=== PATIENT | male | born 1975 | race Caucasian/White ===

== ENCOUNTER 2023-09-19 14:24 | Outpatient (OUT) | payer OTHER, SELFPAY ==
--- NOTE | 2023-09-19 15:00 | CA_ITS ---
Patient Name: HEBERT MARTÍNEZ MR#: [id number] : 1975 Exam Date: 09/19/2023 Ordering Doctor: Rudi Earl ECHOCARDIOGRAM REPORT PROCEDURE: CA ECHO DOPPLER COMPLETE INDICATIONS: Atrial fibrillation COMPARISON: None. DESCRIPTION: COMPLETE ECHOCARDIOGRAM Real-time transthoracic echocardiography with 2D, M-mode, spectral and color flow Doppler performed. QUALITY: Technical quality was good. LEFT VENTRICLE: Normal chamber size. Mild concentric left ventricular hypertrophy. LV EF: Global left ventricular systolic function is normal. Calculated left ventricular ejection fraction is 66%. No significant wall motion abnormalities. DIASTOLIC: Normal diastolic function. ATRIAL SEPTUM: Inadequately seen. LEFT ATRIUM: Normal chamber size. RIGHT ATRIUM: Normal chamber size. RIGHT VENTRICLE: Normal chamber size. Normal right ventricular systolic function. TRICUSPID VALVE: Normal mobility and thickness. No stenosis with mild regurgitation. No evidence of pulmonary hypertension. RVSP 28mmHg MITRAL VALVE: Normal mobility and thickness. No evidence of mitral valve stenosis. There is no mitral annular calcification. Mild mitral regurgitation. AORTIC VALVE: Normal trileaflet appearance. Normal leaflet mobility. No evidence of aortic valve stenosis. Trivial aortic regurgitation. AORTIC ROOT: Normal diameter and appearance. PULMONIC VALVE: Grossly normal. No stenosis. No regurgitation. PERICARDIUM: No evidence of pericardial effusion. IVC: Collapses with inspirations. Normal size. CONCLUSION: 1. Global left ventricular systolic function is normal; visually estimated ejection fraction is 60 to 65% 2. Normal right ventricular size and systolic function 3. Mildly increased left ventricular wall thickness 4. Normal diastolic function 5. Normal left atrial size 6. Mild tricuspid regurgitation 7. Mild mitral regurgitation Adult Echocardiography Procedure Report Left Ventricle LVEDD (3.7 - 5.6 cm): 4.30 cm LVESD (2.2 - 4.0 cm): 2.97 cm LVIVS thickness (0.6 - 1.2 cm): 1.18 cm LVPW thickness (0.5 - 1.0 cm): 1.14 cm e': 0.14 m/s E - e': 5.52 LVOT Max Gradient: 3.58 mm[Hg] LVOT Area (cm2): 0.95 m/s Peak Velocity (LVOT): 0.95 m/s Mean Velocity (LVOT): 0.66 m/s LVOT Diameter 2.06 cm Left Ventricular Ejection Fraction: 65.58 % Left Atrium LA Volume Index (2D A2C): 32.70 ml/m2 Left Atrium Systolic Dimension: 3.00 cm Mitral Valve MV E to A Ratio: 1.11 Mitral Valve A-Wave Peak Velocity: 0.70 m/s Mitral Valve E-Wave Peak Velocity: 0.78 m/s Right Ventricle RV Internal Diastolic Dimension: 3.33 cm Aorta AO Root Diam: 3.25 cm Aortic Valve AoV Area (Peak Tim): 2.71 cm2, 2.71 cm2 AoV Area (VTI): 2.70 cm2, 2.70 cm2 Peak Velocity(Antegrade Flow): 1.16 m/s Peak Gradient(Antegrade Flow): 5.38 mm[Hg] Mean Velocity(Antegrade Flow): 0.78 m/s Mean Gradient(Antegrade Flow): 2.82 mm[Hg] Velocity Time Integral: 28.97 cm Tricuspid Valve Peak Velocity (Regurgitant Flow): 2.50 m/s Pulmonic Valve Mean Gradient: 1.70 mm[Hg] Mean Velocity: 0.60 m/s Peak Velocity: 0.94 m/s Peak Gradient: 3.55 mm[Hg] Right Atrium Right Atrium Systolic Pressure: 39.77 ml, 39.77 ml Dictated by: Puneet Quispe M.D. on 09/21/2023 at 16:52 Approved by: Puneet Quispe M.D. on 09/21/2023 at 16:55
[2023-09-19 15:52] LABS: Basophils Absolute Auto 0.1 10^3/uL (0.0-0.1); Eosinophils Absolute Auto 0.2 10^3/uL (0.0-0.7); Eosinophils Percent Auto 2.7 % (0.9-7.0); Hematocrit 47.2 % (42.0-54.0); Immature Granulocytes Abs Auto 0.03 10^3/uL (0.00-0.03); Immature Granulocytes Pct Auto 0.4 % (0.0-0.5); Lymphocytes Percent Auto 24.5 % (20.5-60.0); Mean Corpuscular HGB Conc 33.9 g/dL (29.9-35.2); Mean Corpuscular Hemoglobin 30.1 pg (25.9-34.0); Mean Corpuscular Volume 88.9 fL (80.0-94.0); Mean Platelet Volume 8.9 fL (9.5-13.5); Monocytes Absolute Auto 0.8 10^3/uL (0.3-0.8); Monocytes Percent Auto 9.9 % (1.7-12.0); Neutrophils Percent Auto 61.5 % (43.0-75.0); Platelet Count 219 10^3/uL (150-450); Red Blood Count 5.31 10^6/uL (4.70-6.10); Red Cell Distribution Width 12.4 % (11.0-15.0); White Blood Count 8.1 10^3/uL (4.0-11.0)
[2023-09-19 16:03] LABS: Anion Gap 12.1; BUN Creatinine Ratio 17.6; Calcium 9.2 mg/dL (8.5-10.1); Carbon Dioxide 26.1 mmol/L (21.0-32.0); Chloride 104 mmol/L (98-107); Estimated GFR (African America >60 (>=60); Estimated GFR (Non-African Ame >60 (>=60); Glucose 90 mg/dL (74-106); Potassium 4.2 mmol/L (3.5-5.1); Sodium 138 mmol/L (136-145)
== END 2023-09-19 14:25 | disposition home or self-care (01) ==
LOC: CARD 14:24
PROVIDERS: PCP Family Medicine; Visit Provider Internal Medicine Cardiovascular Disease
DX: Z01.812 Encounter for preprocedural laboratory examination (principal); Z01.818 Encounter for other preprocedural examination; I48.0 Paroxysmal atrial fibrillation
CPT/HCPCS: 36415; 80048; 85025; 93306

== ENCOUNTER 2024-03-02 10:26 | Emergency (ER) | payer OTHER, SELFPAY ==
--- OUTSIDE RECORDS SUMMARY | 2024-03-02 10:33 | XMS_ITS | CCD ---
Author Organization [facility] Care Team Providers Care Nurse Practitioner Hospitalist Name Role Phone LIYAH ANDRADE Unavailable Unavailable LIYAH ANDRADE Unavailable Unavailable ALEXANDER POWELL AM Unavailable Unavailable UNKNOWN, PHYSICIAN Unavailable Unavailable KHAYZNIKOV, CHACHO Unavailable Unavailable KHAYZNIKOV, CHACHO Unavailable Unavailable [place], EHAB A Unavailable Unavailable KELLEN LINN Unavailable Unavailable [place] Unavailable Unavailable Uri, Honey Unavailable Unavailable Kellen Linn Primary Care Provider Franco Pan Attending Provider TEMITOPE, DR KELLEN Segundo Admitting Unavailable TEMITOPE, DR KELLEN Segundo Primary Care Unavailable TEMITOPE, DR KELLEN Segundo Consulting Unavailable LINN, DR KELLEN Segundo Attending Unavailable LINN, DR KELLEN Segundo Attending Unavailable TEMITOPE, DR KELLEN Segundo Admitting Unavailable TEMITOPE, DR KELLEN Segundo Primary Care Unavailable TEMITOPE, DR KELLEN Segundo Consulting Unavailable JAH QUINTERO Attending Unavailable JAH QUINTERO Admitting Unavailable JAH QUINTERO Consulting Unavailable TEMITOPE, DR KELLEN Segundo Primary Care Unavailable Ronel Vergara Consulting Unavailable Franco Pan Unavailable Kellen Linn Unavailable RUDI EARL Referring Unavailable RUDI EARL Attending Unavailable RUDI EARL Referring Unavailable RUDI EARL Referring Unavailable RUDI EARL Admitting Unavailable RUDI EARL Attending Unavailable Allergies Allergy Classification Reported Allergen(s) Allergy Type Date of Onset Reaction(s) Facility Opioid Agonists (1 source) Morphine Drug Allergy 08-19-19 [facility] Penicillins (antibiotic) (1 source) Penicillins Drug Allergy 08-19-19 [facility] (4 sources) Penicillins; Translations: [PENICILLINS] Drug allergy (disorder) 12-27-19 13 [facility], Hives [facility] Repository (7 sources) Penicillins Drug allergy Unknown [place] Other (7 sources) Morphine Drug Allergy 02-07-20 Unknown, Agitation [facility] (2 sources) patient allergy list reviewed by nurse or physicia Propensity to adverse reactions 11-29-19 Comment:Done [place] Other (2 sources) Allergies Reconciled Propensity to adverse reactions Unknown [place] Other (2 sources) Substance with penicillin structure and antibacterial mechanism of action (substance) Drug allergy Unknown [place] Other Medications Current Medications Medication Drug Class(es) Dates Sig (Normalized) Sig (Original) acetaminophen 325 mg / oxyCODONE hydrochloride 5 mg oral tablet (2 sources) Opioid Agonist Start: 04-04-2021 take 1 tablet by mouth every four hours as needed Percocet 5-325 MG 1 tablet as needed Orally up to every 4 hrs for 5 days Mar, Active apixaban 5 mg oral tablet (1 source) Factor Xa Inhibitor Start: 02-07-2024 take 1 tablet by mouth twice daily Apixaban (Eliquis) 5 mg tablet Active 5 MG PO Twice daily February 07, 2024 12:00am Aspir-81 (7 sources) Aspir-81 Active aspirin 81 mg delayed release oral tablet (2 sources) Platelet Aggregation Inhibitor, Nonsteroidal Anti-inflammatory Drug Start: 08-18-2020 End: 02-07-2024 take 81 mg by mouth once daily Aspirin Active 81 MG PO Daily August 18, 2020 9:06am Azithromycin (1 source) Macrolide Antimicrobial Start: 02-07-2024 Azithromycin Active 0 PO .COMPLEX 6 February 07, 2024 12:00am For 250 mg dose pack: take 500 mg today (day 1), then 250 mg for 4 days (days 2-5) PO ciprofloxacin 500 mg oral tablet (2 sources) Quinolone Antimicrobial Start: 04-04-2021 take 1 tablet by mouth every twelve hours Cipro 500 MG 1 tablet Orally every 12 hrs for 2 days Mar, Active flecainide acetate 50 mg oral tablet (9 sources) Antiarrhythmic Start: 08-18-2020 take 50 mg by mouth twice daily Flecainide Active 50 MG PO Twice daily August 18, 2020 9:06am Flecainide Aceta te 100 MG as directed Orally twice daily Active 24 hr metoprolol succinate 25 mg extended release oral tablet (9 sources) beta-Adrenergic Joceline Start: 08-18-2020 take 25 mg by mouth once daily Metoprolol Succinate Active 25 MG PO Daily August 18, 2020 9:06am take 1 tablet by fede th every twelve hours Metoprolol Tartrate 25 MG 1 tablet with food Orally Twice a day Active Multivit With Min-Folic Acid (Men's Daily Formula) 0.4 mg Tablet (2 sources) Start: 08-18-2020 take 1 tablet by mouth once daily Multivit With Min-Folic Acid (Men's Daily Formula) 0.4 mg Tablet Active 1 TAB PO Daily August 18, 2020 9:06am Start: 08-18-2020 take 1 tablet by fede th once daily Multivit With Min-Folic Acid (Men's Daily Formula) 0.4 mg Tablet Active 1 TAB PO Daily August 18, 2020 12:00am Multivitamin preparation (7 sources) Multivitamin Act radha naproxen 500 mg oral tablet (9 sources) Nonsteroidal Anti-inflammatory Drug Start: 07-10-2023 Naproxen Active 5 00 MG PO Twice daily 60 July 10, 2023 2:16pm Pt. instructed to stop 5-7 days preop. Start: 08-18-2020 End: 07-10-2023 Naproxen Active 500 MG PO Tw ice daily August 18, 2020 9:06am Pt. instructed to stop 5-7 days preop. Naproxen Active Omeprazole (11 sources) Proton Pump Inhibitor Start: 12-05-2023 Omeprazo le Active 0 .ROUTE .COMPLEX December 05, 2023 9:58pm TAKE 1 CAPSULE DAILY 30 MINUTES BEFORE MORNING MEAL Start: 12-15-2021 take 1 capsule by mo uth once daily Omeprazole 20 MG 1 capsule 30 minutes before morning meal Oral daily for 90 days Nov, Active Start: 08-18-2020 End: 12-05-2023 take 20 mg by mouth once daily Omeprazole Active 20 MG PO Daily August 18, 2020 9:06am PriLOSEC Active rivaroxaban 10 mg oral tablet (3 sources) Factor Xa Inhibitor take 1 tablet by mouth every twenty-four hours Xarelto 10 MG 1 tablet with food Orally Once a day Active Robaxin-750 750MG (1 source) Start: 2020 Robaxin-750 750MG Robaxin-750 750MG, 1 (one) Tablet three times daily, as needed # 15, 05/28/2020, No Refill. Active Oral three times daily, as needed for 0 *Reorder from [facility] for eRx and Interaction Alerts* Apr, Active sildenafil 50 mg oral tablet (1 source) Phosphodiesterase 5 Inhibitor take 1 tablet by mouth every twenty-four hours Sildenafil Citrate 50 MG 1 tablet as needed Orally Once a day for 30 days Active sulfamethoxazole 800 mg / trimethoprim 160 mg oral tablet (2 sources) Dihydrofolate Reductase Inhibitor Antibacterial, Sulfonamide Antimicrobial Start: 2019 Sulfamethoxazole- Trimethoprim 800-160 MG Sulfamethoxazole- Trimethoprim 800-160MG, 1 (one) Tablet two times daily # 14, 08/22/2019, No Refill. Active Oral two times daily for 0 Jul, Active Start: 06-04-2019 Bactrim DS 800 -160 MG Bactrim DS 800-160MG, 1 (one) Tablet two times daily # 14, 06/04/2019, No Refill. Active Oral two times daily for 0 May, Active traMADol hydrochloride 50 mg oral tablet (9 sources) Opioid Agonist Start: 04-19-2021 take 1 tablet by mouth three times daily as needed traMADol HCl 50 MG traMADol HCl 50MG, 1 (one) Tablet three times daily, as needed # 21, 04/19/2021, No Refill. Active Oral three times daily, as needed for 7 Mar, Active Start: 04-11-2021 take 1 tablet by fede th every twenty-four hours traMADol HCl 50 MG 1 tablet as needed Orally Once a day Mar, Active Start: 04-11-2021 take 1 tablet by fede th every eight hours as needed for pain traMADol HCl 50 MG 1 tablet as needed for severe pain Orally every 8 hours for 7 days Mar, Active Completed/Discontinued Medications Medication Drug Class(es) Dates Sig (Normalized) Sig (Original) meloxicam 7.5 mg oral tablet (4 sources) Nonsteroidal Anti-inflammatory Drug Start: 06-26-2023 End: 02-07-2024 take 1 tablet by mouth once daily Meloxicam Discontinued 0 .ROUTE .COMPLEX June 26, 2023 3:10pm February 07, 2024 2:58pm TAKE 1 TABLET BY MOUTH EVERY DAY FOR 30 DAYS Start: 06-26-2023 End: 06-26-2023 take 7.5 mg by mouth once daily Meloxicam Discontinued 7.5 MG PO Daily June 26, 2023 1:00am June 26, 2023 3:11pm Start: 06-07-2023 take 1 tablet by fede th every twenty-four hours Meloxicam 7.5 MG 1 tablet Orally Once a day for 30 day(s) May, Active Start: 06-07-2023 take 1 capsule by mo [facility] every twenty-four hours Meloxicam 5 MG 1 capsule Orally Once a day for 30 day(s) May, Active tiZANidine 4 mg oral tablet (7 sources) Central alpha-2 Adrenergic Agonist Start: 09-04-2023 End: 02-07-2024 take 1 tablet by mouth once daily at bedtime as needed Tizanidine Discontinued 0 .ROUTE .COMPLEX October 26, 2023 11:01am February 07, 2024 2:58pm TAKE 1 TABLET BY MOUTH EVERYDAY AT BEDTIME NEEDED FOR MUSCLE SPASTICITY Start: 07-16-2023 End: 09-04-2023 take 1 tablet by mouth at bedtime as needed Tizanidine Discontinued 0 .ROUTE .COMPLEX August 13, 2023 9:25am September 04, 2023 9:47am TAKE 1 TABLET BY MOUTH AT BEDTIME NEEDED FOR MUSCLE SPASTICITY Start: 06-21-2023 End: 07-16-2023 take 4 mg by mouth once daily at bedtime Tizanidine Discontinued 4 MG PO Daily at bedtime June 21, 2023 4:02pm July 16, 2023 10:07am take 1 tablet by fede once daily at bedtime as needed tiZANidine HCl 4 MG 1 tablet as needed Orally qhs prn for 30 days Active Triamcinolone (4 sources) Corticosteroid Start: 01-17-2021 Kenalog -40 mg Dec, 40 mg Start: 07-08-2020 Kenalog -40 mg Jun, 40 mg Problems Active Problems Problem Classification Problem Date Documented Da te Episodic/Chronic Allergic reactions (1 source) Allergy status to penicillin; Translations: [ALLERGY STATUS TO PENICILLIN] Onset: 01-09-2018 Episodic Cardiac dysrhythmias (13 sources) Unspecified atrial fibrillation; Translations: [Paroxysmal atrial fibrillation] Onset: 05-23-2017 Chronic Esophageal disorders (3 sources) Gastro-esophageal reflux disease without esophagitis; Translations: [Esophageal reflux finding] Onset: 03-19-2017 Chronic Headache; including migraine (2 sources) Tension-type headache; Translations: [Tension-type headache, unspecified, not intractable] Chronic Other male genital disorders (2 sources) Male erectile dysfunction, unspecified; Translations: [Erectile dysfunction, unspecified erectile dysfunction type] Chronic Other non-traumatic joint disorders (4 sources) Shoulder joint pain; Translations: [Pain in unspecified shoulder] Episodic Other screening for suspected conditions (not mental disorders or infectious disease) (2 sources) Patient encounter status; Translations: [Encounter for screening for malignant neoplasm of prostate] 02-07-2024 Episodic Other upper respiratory infections (2 sources) Chronic sinusitis; Translations: [Chronic sinusitis, unspecified] Chronic Residual codes; unclassified (1 source) Family history of prostate cancer; Translations: [Family history of malignant neoplasm of prostate] 02-07-2024 Episodic Residual codes; unclassified (1 source) Family history of malignant neoplasm of prostate; Translations: [Family history of malignant neoplasm of prostate] 02-07-2024 Episodic Skin and subcutaneous tissue infections (6 sources) Cellulitis and abscess of toe; Translations: [Unspecified cellulitis and abscess of toe] Onset: 11-16-2017 Episodic Spondylosis; intervertebral disc disorders; other back problems (2 sources) Cervical disc disorder; Translations: [Cervical disc disorder, unspecified, unspecified cervical region] Onset: 11-28-2018 Chronic Sprains and strains (6 sources) Strain of muscle(s) and tendon(s) of the rotator cuff of left shoulder, initial encounter; Translations: [Strain of other muscles, fascia and tendons at shoulder and upper arm level, left arm, sequela] Onset: 01-31-2021 Resolved: 05-24-2021 Episodic Unclassified (1 source) Obstructive sleep apnea (adult) (pediatric); Translations: [OBSTRUCTIVE SLEEP APNEA (ADULT) (PEDIATRIC)] Onset: 01-09-2018 Chronic Unclassified (2 sources) Unknown / UNK(Unknown) Onset: 05-23-2017 Unclassified (2 sources) CONTACT W/AND (SUSP) EXPOS COVID-19; Translations: [CONTACT W/AND (SUSP) EXPOS COVID-19] Onset: 04-26-2021 Viral infection (4 sources) COVID-19; Translations: [COVID-19] Onset: 04-21-2021 Past or Other Problems Problem Classification Problem Date Documented Date Episodic/Chronic Cardiac dysrhythmias (3 sources) Palpitations; Translations: [PALPITATIONS] Onset: 04-10-2021 Episodic Disorders of teeth and jaw (2 sources) Dental caries; Translations: [Dental caries, unspecified] Onset: 05-24-2017 Episodic Immunizations and screening for infectious disease (1 source) Encounter for immunization; Translations: [ENCOUNTER FOR IMMUNIZATION] Onset: 04-25-2021 Episodic Mycoses (2 sources) Tinea pedis; Translations: [Tinea pedis] Onset: 12-19-2016 Episodic Nonspecific chest pain (2 sources) Chest pain; Translations: [Chest pain, unspecified] Onset: 03-19-2017 Episodic Other aftercare (2 sources) exterminator helper termite (current) use of aspirin; Translations: [SHED BOSS (CURRENT) USE OF ASPIRIN] Onset: 01-09-2018 Episodic Other aftercare (1 source) Other care home (current) drug therapy; Translations: [OTH ASSISTED CURRENT DRUG THERAPY] Onset: 04-12-2021 Episodic Other connective tissue disease (5 sources) Unspecified disorder of synovium and tendon, left shoulder; Translations: [Tendinopathy of left rotator cuff M67.912] Onset: 01-31-2021 Resolved: 05-24-2021 Episodic Other connective tissue disease (2 sources) Acquired trigger finger; Translations: [Trigger finger] Onset: 03-19-2017 Episodic Other connective tissue disease (2 sources) Bicipital tenosynovitis; Translations: [Bicipital tenosynovitis] Onset: 01-29-2013 Episodic Residual codes; unclassified (1 source) Other specified postprocedural states Onset: 04-04-2021 Resolved: 04-04-2021 Episodic Screening or history of mental health and substance abuse (1 source) Personal history of nicotine dependence; Translations: [PERSONAL HISTORY OF NICOTINE DEPENDENCE] Onset: 05-23-2017 Episodic Unclassified (1 source) CONTACT W/AND (SUSP) EXPOS COVID-19; Translations: [CONTACT W/AND (SUSP) EXPOS COVID-19] Onset: 04-19-2021 Results Test Name Value Interpretation Reference Range Facility 36on 10-03-2023 36 states patient have small hard knot in groin where catheters were.slight bruising.informed her its normal,no reports of drainage.complaints of soreness to wrist at artline site,able to move fingers without difficulty,fingers warm,pink.no other complaints.otherwise taking blood thinners and antacids as ordered.eating and drinking well.will call back with any other concern Normal [facility] Telephoneon 10-03-2023 Telephone [id number] Moon Perrin 1975 M Date Provider Department Center 10/03/2023 [facility] Family History Problem Relation Age of Onset Bradycardia Mother Other Mother Family Status - Relation Status Age at Mother Reason for Visit and Comments: week f/u post ablation [Other] Normal [facility] HPon 09-26-2023 [facility] Electrophysiology Consult Note Reason for visit: Afib 09/11/23 Patient here for 1 year follow up PAF. Denies chest pain and SOB. Had 1 short recent episode of lightheadedness. Says he feels his heart beat fast, but not irregularly. No recent labs or imaging since visit last year. He is in Afib now and states he went intot it this am EKG 09/11/23: Afib with RVR 08/15/22 Patient has been doing well since the flecainide was increased to 100 mg twice daily. Recent 30-day event monitor from 05/19/2019 to 07/27/2022 did not reveal the presence of atrial fibrillation suggestive of breakthrough despite using flecainide. This was noted on 28 June as well as 02 July and the remainder of the time he was in sinus rhythm. Continues to use CPAP for sleep apnea. He elects to proceed with ablation but does not have any holidays so would like to get it done next year. By pulse check he is in normal rhythm today Prior HPI: Hernandez Perrin is a 48 y.o. with paroxysmal atrial fibrillation which was initially diagnosed in 2017 and was subsequently seen by Dr. Powell. He was placed on flecainide 50 mg and had a recurrence in September 2017 and at that time was cardioverted [place]. He was continued on the same dose and then subsequently had a recurrence in March 2021. He converted on his own and his dose was increased to 100 mg twice daily. He has also been diagnosed sleep apnea but does not use his machine He is otherwise active with no other chest pain or other issues EKG 05/10/2021 shows sinus rhythm 04/10/2021 shows sinus rhythm 04/10/2021 at 2 PM shows atrial fibrillation with controlled ventricular rate 03/18/2020 shows sinus rhythm 12/03/2019 shows sinus rhythm 02/19/2018 shows sinus rhythm Stress test from 03/31/2020 is a nuclear perfusion study which is negative for ischemia Echocardiogram performed on 03/31/2020 shows EF of 55 to 60% with normal left atrial and normal ventricular size no significant valvular abnormality was noted Holter that was placed on 03/18/2022 -03/21/2020 reveals no evidence of atrial fibrillation occasional PVCs were noted which is less than 1% and PACs were also seen which is less than 1% however there were no patient triggered events during the time of monitoring 1. Paroxysmal atrial fibrillation - Patient is without evidence of paroxysmal atrial fibrillation. He is symptomatic when he has his A. fib with RVR episodes and I discussed strategies to maintain sinus rhythm with a discussion of maintaining the antiarrhythmic drugs versus catheter ablation. He would like to come off the medication as much as possible and himself out and fibrillation. I have suggested that he focus on risk factor modification with weight loss and also to have compliance with sleep apnea treatment. I suggested that he trial a nasal pillow for FIONA treatment. If it is such that he does not have any more episodes of A. fib because of the weight loss he has achieved, and that he has instituted treatment for sleep apnea, then we can wait and see. On the other hand if he has recurrence then he can schedule A. fib ablation. I48.0: Paroxysmal atrial fibrillation PMH: Past Medical History: Diagnosis Date Intermittent palpitations Obstructive sleep apnea syndrome cpap Paroxysmal atrial fibrillation (CMS/HCC) PSH: Past Surgical History: Procedure Laterality Date CARDIOVERSION KNEE SURGERY SHOULDER SURGERY SH: Social Determinants of Health Tobacco Use: Medium Risk (09/26/2023) Patient History Smoking Tobacco Use: Former Smokeless Tobacco Use: Never Passive Exposure: Not on file Alcohol Use: Not on file Financial Resource Strain: Not on file Food Insecurity: Not on file Transportation Needs: Not on file Physical Activity: Not on file Stress: Not on file Social Connections: Not on file Intimate Partner Violence: Unknown (06/21/2023) [place] Safety & Environment Fear of Current or Ex-Partner: Not on file Emotionally Abused: Not on file Physically Abused: Not on file Sexually Abused: Not on file Physically or Sexually Abused: Not on file Depression: Not on file Housing Stability: Not on file Utilities: Not on file Allergies: Allergies Allergen Reactions Penicillins Hives Weight: 94.3kg Visit Vitals BP 121/73 Pulse 62 Temp 36.5 ???C (97.7 ???F) (Temporal) Resp 18 Ht 1.727 m (5' 8 ) Wt 93.8 kg (206 lb 12.7 oz) SpO2 99% BMI 31.44 kg/m??? Smoking Status Former BSA 2.12 m??? Meds: No current facility-administered medications on file prior to encounter. Current Outpatient Medications on File Prior to Encounter Medication Sig Dispense Refill apixaban (Eliquis) 5 mg tablet Take 1 tablet (5 mg) by mouth in the morning and at bedtime. 60 tablet 11 flecainide (Tambocor) 100 mg tablet TAKE 1 TABLET EVERY 12 HOURS 180 tablet 3 omeprazol (more content not included)... Normal [facility] POCT GLUCOSE METER UNSOLICIT ED RESULTSon 09-26-2023 Glucose [Mass/Vol] 89 mg/dL Normal 70-105 [facility] Comment on above: Order Comment: Waive d Testing in the ED is performed under the ED CLIA certificate #[id number]. Result Comment: [address] Performed By: #### L [id number] ####[facility] ([employer])[address] [place] [address] PROTIME-INRon 09-26-2023 INR IN PPP BY COAGULATION ASSAY 1.04 Normal 0.90-1.10 [facility] Comment on above: Result Comment: [facility] P RECOMMENDED INR FOR WARFARIN THERAPY CONDITION INR PROPHYLAXIS OF VENOUS THROMBOSIS 2-3 (HIGH-RISK SURGERY) TREATMENT OF VENOUS THROMBOSIS 2-3 TREATMENT OF PULMONARY EMBOLISM 2-3 PREVENTION OF SYSTEMIC EMBOLISM: 2-3 ACUTE MYOCARDIAL INFARCTION TISSUE HEART VALVES VALVULAR HEART DISEASE ATRIAL FIBRILLATION RECURRENT SYSTEMIC EMBOLISM MECHANICAL HEART VALVE 2.5-3.5 FROM: ORAL ANTICOAGULANTS. MECHANISM OF ACTION, CLINICAL EFFECTIVENESS, AND OPTIMAL THERAPEUTIC RANGE. CHEST 1995;108:231S-246S. Performed By: #### L [id number] ####[facility] ([employer])[address] [place] [address] PROTHROMBIN TIME (PT) IN PPP BY COAGULATION ASSAY 13.6 Seconds Normal 12.3-14.8 [facility] Comment on above: Performed By: #### L [id number] ####[facility] ([employer])[address] [place] [address] Prep for Procedureon 09-25- 024 Prep for Procedure [id number] Hernandez Perrin 1975 M Date Provider Department Center 09/26/2023 [facility] Family History Problem Relation Age of Onset Bradycardia Mother Other Mother Family Status - Relation Status Age at Mother Normal [facility] Orders Onlyon 09-20-2023 Orders Only [id number] Moon Perrin E 1975 M Date Provider Department Center 09/20/2023 [id number], HISTORICAL CARD Zeke Keena Family History Problem Relation Age of Onset Bradycardia Mother Other Mother Family Status - Relation Status Age at Mother Normal [facility] [id number] 09-18-2023 [id number] ARRIVAL TIME GIVEN 0 700 HOLD ELIQUIS ON 09/23 MEDICATIONS TO TAKE DAY OF SURGERY WITH SIP OF WATER METOPROLOL OMEPRAZOLE NSAIDs (Motrin,Aleve): 5 days prior to procedure Vitamins/Supplements: 5 days prior to procedure IF YOU ARE GOING HOME AFTER YOUR SURGERY OR PROCEDURE, FOR YOUR SAFETY, YOUR SURGERY WILL BE CANCELLED IF BOTH OF THE FOLLOWING ARE NOT AVAILABLE: An adult driver/refuse collector over the age of 18, that can receive information about your care after surgery, and drive you home. A responsible adult to stay with you for 24 hours in case of an emergency. Can be same as above. The highest risk of complications is within the first 24 hours after sedation/anesthesia. Nothing to eat or drink after midnight the night before surgery. This includes gum, candy, mints, and lozenges. No alcohol, marijuana, or tobacco products including vaping for 24 hours. Please brush your teeth; don't swallow the toothpaste or water. If you use dentures, wear them but do not use paste. Please leave any other removable dental hardware at home. Do not put in contact lenses. Do not wear perfume, make-up, nail turkmen, or lotions on the day of your surgery or procedure. Follow skin-prep/wipe instructions as below if required. Bring with you: *Insurance card *Photo ID *Medication list *Co-pay for visit/prescriptions If applicable: *Rescue inhalers *Green bracelet from lab *CPAP or BiPAP machine, if staying overnight *Any braces, splints, or equipment ordered preoperatively *Remote controls for implanted devices Leave at home: *Purse/Wallet/Riley- unless needed for co-pay *Cell phone (can leave with family/friend or place in locker if needed) *Jewelry (including piercings and wedding bands) *If not possible, ask the person who is waiting with you to keep them Children under the age of 12 will not be allowed into patient care areas. We will call you between 3pm and 4pm the day before your surgery to give you an arrival time. If you do not receive this call, have any questions, or need to make any changes, please call [phone]. Notify your surgeon if you develop any illness such as a cold, cough, fever, sore throat or vomiting between now and your surgery. Thank you for entrusting us with your care. [place] [facility] Services Team Normal [facility] [place] Prep for Procedureon 024 Prep for Procedure [id number] JwinésHernandez 1975 M Date Provider Department Center 09/13/2023 Francia-JAROD [facility] IN [facility] Family History Problem Relation Age of Onset Bradycardia Mother Other Mother Family Status - Relation Status Age at Mother Normal [facility] [place] Office Visiton 09-11-2023 Follow-up visit [id number] Moon Perrin E 1975 M Date Provider Department Center 09/11/2023 Messi-RUDI EARL [facility] Family History Problem Relation Age of Onset Bradycardia Mother Other Mother Family Status - Relation Status Age at Mother Level of Service:[address] [place] OFFICE/OUTPATIENT ESTABLISHED HIGH MDM 40 MIN Normal [facility] [place] Covid-19 PCR (CVDTBH)on 03-31 SARS-CoV-2 (COVID-19) RNA LAMIN+probe Ql (Unsp spec) Detected Critically abnormal NOT DETECTED [facility] Comment on above: Result Comment: This test is not yet approved or cleared by the [place] FDA. When there are no FDA-approved or cleared tests available, and other criteria are met, FDA can make tests available under an emergency access mechanism called an Emergency Use Authorization (EUA). The EUA for this test is supported by the [employer] of Health and Human Service's (HHS's) declaration that circumstances exist to justify the emergency use of in vitro diagnostics for the detection and/or diagnosis of the virus that causes COVID-19. This EUA will remain in effect (meaning this test can be used) for the duration of the COVID-19 declaration justifying emergency of IVDs, unless it is terminated or revoked by FDA (after which the test may no longer be used). Performed By: #### C VDTBH #### [facility] [address] [place] [address] Dr. Joselyn Henning CBC AUTO DIFFon 04-10-2021 BASO # 0.1 103/ul Normal 0.0-0.1 [facility] Comment on above: Performed By: #### C BC #### [facility] [address] [place] [address] Dr. Joselyn Henning Basophils/100 WBC (Bld) 0.8 % Normal 0.2-2.0 [facility] Comment on above: Performed By: #### C BC #### [facility] [address] [place] [address] Dr. Joselyn Henning EO # 0.3 103/ul Normal 0.0-0.7 [facility] Comment on above: Performed By: #### C BC #### [facility] [address] [place] [address] Dr. Joselyn Henning Eosinophils/100 WBC (Bld) 2.6 % Normal 0.9-7.0 [facility] Comment on above: Performed By: #### C BC #### [facility] [address] [place] [address] Dr. Joselyn Henning Erythrocyte distribution width (RBC) [Ratio] 12.5 % Normal 11.0-15.0 [facility] Comment on above: Performed By: #### C BC #### [facility] [address] [place] [address] Dr. Joselyn Henning Hematocrit (Bld) [Volume fraction] 45.0 % Normal 42.0-54.0 [facility] Comment on above: Performed By: #### C BC #### [facility] [address] [place] [address] Dr. Joseyln Henning Hemoglobin (Bld) [Mass/Vol] 15.5 g/dL Normal 14.0-18.0 [facility] Comment on above: Performed By: #### C BC #### [facility] [address] [place] [address] Dr. Joselyn Henning IG # 0.07 10e3/ul Critically high 0.00-0.03 [facility] Comment on above: Performed By: #### C BC #### [facility] [address] [place] [address] Dr. Joselyn Henning IG % 0.7 % Critically high 0.0-0.5 [facility] Comment on above: Performed By: #### C BC #### [facility] [address] [place] [address] Dr. Joselyn Henning LYMPH # 2.5 103/ul Normal 1.2-3.8 [facility] Comment on above: Performed By: #### C BC #### [facility] [address] [place] [address] Dr. Joselyn Henning Lymphocytes/100 WBC (Bld) 23.2 % Normal 20.5-60.0 [facility] Comment on above: Performed By: #### C BC #### [facility] [address] [place] [address] Dr. Joselyn Henning MANUAL DIFF REQ NO Normal [facility] Comment on above: Performed By: #### C BC #### [facility] [address] [place] [address] Dr. Joselyn Henning MCH (RBC) [Entitic mass] 30.5 pg Normal 25.9-34.0 [facility] Comment on above: Performed By: #### C BC #### [facility] [address] [place] [address] Dr. Joselyn Henning MCHC (RBC) [Mass/Vol] 34.4 g/dL Normal 29.9-35.2 [facility] Comment on above: Performed By: #### C BC #### [facility] [address] [place] [address] Dr. Joselyn Henning MCV (RBC) [Entitic vol] 88.4 fL Normal 80.0-94.0 [facility] Comment on above: Performed By: #### C BC #### [facility] [address] [place] [address] Dr. Joselyn Henning MONO # 1.0 103/ul Critically high 0.3-0.8 [facility] Comment on above: Performed By: #### C BC #### [facility] [address] [address] [address] Joselyn Henning Monocytes/100 WBC (Bld) 9.7 % Normal 1.7-12.0 [facility] Comment on above: Performed By: #### C BC #### [facility] [address] [address] [address] Joselyn Henning NEUT # 6.8 103/ul Critically high 1.4-6.5 [facility] Comment on above: Performed By: #### C BC #### [facility] [address] [place] [address] Dr. Joselyn Henning Neutrophils/100 WBC (Bld) 63.0 % Normal 43.0-75.0 [facility] Comment on above: Performed By: #### C BC #### [facility] [address] [place] [address] Dr. Joselyn Henning Platelet mean volume (Bld) [Entitic vol] 9.1 fL Critically low 9.5-13.5 [facility] Comment on above: Performed By: #### C BC #### [facility] [address] [place] [address] Dr. Joselyn Henning PLT 269 103/ul Normal 150-450 [facility] Comment on above: Performed By: #### C BC #### [facility] [address] [place] [address] Dr. Joselyn Henning RBC 5.09 106/ul Normal 4.70-6.10 [facility] Comment on above: Performed By: #### C BC #### [facility] [address] [place] [address] Dr. Joselyn Henning WBC 10.7 103/ul Normal 4.0-11.0 [facility] Comment on above: Performed By: #### C BC #### [facility] [address] [place] [address] Dr. Joselyn Henning PROF CHEM 8 (BAS METB)on Anion gap [Moles/Vol] 12.2 mmol/L Normal [facility] Comment on above: Performed By: #### B MP, HSTROPN, TSH #### [facility] [address] [address] [address] Joselyn Henning Calcium [Mass/Vol] 9.1 mg/dL Normal 8.4-10.2 [facility] Comment on above: Performed By: #### B MP, HSTROPN, TSH #### [facility] [address] [address] [address] Joselyn Henning Chloride [Moles/Vol] 109 mmol/L Critically high 98-107 [facility] Comment on above: Performed By: #### B MP, HSTROPN, TSH #### [facility] [address] [place] [address] Dr. Joselyn Henning CO2 [Moles/Vol] 24.7 mmol/L Normal 22.0-30.0 [facility] Comment on above: Performed By: #### B MP, HSTROPN, TSH #### [facility] [address] [place] [address] Dr. Joselyn Henning Creatinine [Mass/Vol] 0.82 mg/dL Normal 0.66-1.25 [facility] Comment on above: Performed By: #### B MP, HSTROPN, TSH #### [facility] [address] [place] [address] Dr. Joselyn Henning EGFR-AF PRYDEINIG >60 Normal >=60 [facility] Comment on above: Performed By: #### B MP, HSTROPN, TSH #### [facility] [address] [place] [address] Dr. Joselyn Henning EGFR-NON AF PRYDEINIG >60 Normal >=60 [facility] Comment on above: Performed By: #### B MP, HSTROPN, TSH #### [facility] [address] [place] [address] Dr. Joselyn Henning Glucose [Mass/Vol] 109 mg/dL Critically high 74-106 [facility] Comment on above: Performed By: #### B MP, HSTROPN, TSH #### [facility] [address] [place] [address] Dr. Joselyn Henning Potassium [Moles/Vol] 3.9 mmol/L Normal 3.4-5.0 [facility] Comment on above: Performed By: #### B INES BOWENTRDANI, TSH #### [facility] [address] [place] [address] Dr. Joselyn Henning Sodium [Moles/Vol] 142 mmol/L Normal 137-145 [facility] Comment on above: Performed By: #### B MARLEY BOWEN, TSH #### [facility] [address] [place] [address] Dr. Joselyn Henning Urea nitrogen [Mass/Vol] 11.0 mg/dL Normal 9.0-20.0 [facility] Comment on above: Performed By: #### B MARLEY BOWEN, TSH #### [facility] [address] [place] [address] Dr. Joselyn Henning Urea nitrogen/Creatini ne [Mass ratio] 13.4 mg/mg Normal [facility] Comment on above: Performed By: #### B MARLEY BOWEN, TSH #### [facility] [address] [place] [address] Dr. Joselyn Henning PROTIMEon 04-10-2021 INR Coag (PPP) [Relative time] 0.95 {INR} Normal [facility] Comment on above: Performed By: #### P T, PTT #### [facility] [address] [place] [address] Dr. Joselyn Henning INR GUIDELINES SEE BELOW Normal [facility] Comment on above: Result Comment: VIOLETTA RED INR: 2.0 - 3.0 CONDITIONS NOT LISTED BELOW 2.5 - 3.5 FOR PROSTHETIC HEART VALVE REPLACEMENT 2.5 - 3.5 RECURRENT THROMBOSIS Performed By: #### P T, PTT #### [facility] [address] [place] [address] Dr. Joselyn Henning PT Coag (PPP) [Time] 10.3 s Normal 9.0-11.6 [facility] Comment on above: Performed By: #### P T, PTT #### [facility] [address] [place] [address] Dr. Joselyn Henning PTTon 04-10-2021 aPTT Coag (Bld) [Time] 26.4 s Normal 22.3-36.2 [facility] Comment on above: Performed By: #### P T, PTT #### [facility] [address] [address] [address] Josleyn Henning TROPONIN, HIGH SENSITIVITYon 04-10-2021 HSTROP 5.1 pg/mL Normal 4.0-42.2 [facility] Comment on above: Result Comment: CUT- OFF POINTS HAVE BEEN ESTABLISHED BASED ON THE FOURTH UNIVERSAL DEFINITIONS OF MYOCARDIAL INFARCTION. THE UPPER REFERENCE LIMIT (URL) OF TROPONIN, DEFINED THE 99TH PERCENTILE OF cTnI DISTRIBUTION IN A REFERENCE POPULATION, HAS BEEN CONFIRMED THE DECISION THRESHOLD FOR [place] DIAGNOSIS. Performed By: #### B MP, HSTROPN, TSH #### [facility] [address] [address] [address] Joselyn Henning TSHon 04-10-2021 TSH 0.749 uIU/mL Normal 0.470-4.68 0 [facility] Comment on above: Performed By: #### B MP, HSTROPN, TSH #### [facility] [address] [address] [address] Joselyn Henning TSH RANGE SEE BELOW Normal [facility] Comment on above: Result Comment: <0.3 4 UIU/ml HYPERTHYROID 0.34-5.60 UIU/ml EUTHYROID >5.60 UIU/ml HYPOTHYROID Performed By: #### B MP, HSTROPN, TSH #### [facility] [address] [address] [address] Joselyn Henning XR CHEST 1 Von 04-10-2021 XR CHEST 1 V EXAM: CHEST 1 VIEW HISTORY: Palpitations TECHNIQUE: Chest, one view. COMPARISON: None. FINDINGS: Lungs are clear. No focal consolidation, pleural effusion, or pneumothorax. Pulmonary vasculature is within normal limits. Cardiomediastinal silhouette is normal. IMPRESSION: 1. No acute cardiopulmonary disease. 2. Normal heart size. Electronically authenticated by: RONEL VERGARA Date: 2021-04-10 14:41 Normal [facility] Drug Screen,Urineon 04-06-20 Amphetamine Screen,Urine Negative Normal Negative [facility] Comment on above: Performed By: #### C BC, CMP #### [address] Barbiturate Screen,Urine Negative Normal Negative [facility] Comment on above: Performed By: #### C BC, CMP #### [address] Benzodiazepines Screen,Urine Negative Normal Negative [facility] Comment on above: Performed By: #### C BC, CMP #### [address] Cannabinoid Screen,Urine Negative Normal Negative [facility] Comment on above: Result Comment: Thes e are unconfirmed results and should not be used for legal purposes. Drug Cut-Off Concentration: AMPH 1000 ng/mL ALYSON 200 ng/mL PARAG 200 ng/mL COCM 300 ng/mL OP 300 ng/mL PCP 25 ng/mL THC 20 ng/mL PERFORMED BY: [place] [address] PATHOLOGIST COMPREHENSIVE ADVISOR TIARA BARNARD M.D. Performed By: #### C BC, CMP #### [address] Cocaine Screen,Urine Negative Normal Negative [facility] Comment on above: Performed By: #### C BC, CMP #### [address] Opiate Screen,Urine Negative Normal Negative [facility] Comment on above: Performed By: #### C BC, CMP #### [address] Phencyclidine Screen,Urine Negative Normal Negative [facility] Comment on above: Performed By: #### C BC, CMP #### [address] COVID-19 FRMCon 04-04-2021 SARS-CoV-2 (COVID-19) RNA LAMIN+probe Ql (Unsp spec) Negative Normal Negative [facility] Comment on above: Order Comment: Healt hcare Worker?: N Result Comment: Testing for SARS-CoV-2 by RT-PCR This test was developed and its performance characteristics determined by [employer]) and validated at the [facility]. This test has not been FDA cleared or approved. This test has been authorized by FDA under an Emergency Use Authorization (EUA). This test has been validated in accordance with the FDA's Guidance Document (Policy for Diagnostics Testing in Laboratories Certified to Perform High Complexity Testing under CLIA prior to Emergency Use Authorization for Coronavirus Disease-2019 during the Public Health Emergency) issued on July 31, 2019. This test is only authorized for the duration of time the declaration that circumstances exist justifying the authorization of the emergency use of in vitro diagnostic tests for detection of SARS-CoV-2 virus and/or diagnosis of COVID-19 infection under section 564(b)(1) of the Act, 21 U.S.C. 360bbb-3(b)(1), unless the authorization is terminated or revoked sooner. PERFORMED BY: [place] [address] PATHOLOGIST COMPREHENSIVE ADVISOR TIARA BARNARD M.D. Performed By: #### C OVID 19 [facility] #### [address] Complete Blood Count Auto Di ffon 03-23-2021 Basophils (Bld) [#/Vol] 0.0 10*3/uL Normal 0.0-0.2 [facility] Comment on above: Result Comment: PERF ORMED BY: [place] [address] PATHOLOGIST COMPREHENSIVE ADVISOR TIARA BARNARD M.D. Performed By: #### C BC, CMP #### [address] Basophils/100 WBC (Bld) 0.6 % Normal . [facility] Comment on above: Performed By: #### C BC, CMP #### [address] Eosinophils (Bld) [#/Vol] 0.1 10*3/uL Normal 0.0-0.45 [facility] Comment on above: Performed By: #### C BC, CMP #### [facility] [address] [place] [address] [place] Eosinophils/100 WBC (Bld) 2.3 % Normal . [facility] Comment on above: Performed By: #### C BC, CMP #### [facility] [address] Erythrocyte distribution width (RBC) [Ratio] 13.4 % Normal 12.0-14.8 [facility] Comment on above: Performed By: #### C BC, CMP #### [facility] [address] Hematocrit (Bld) [Volume fraction] 47.9 % Normal 38.8-50.0 [facility] Comment on above: Performed By: #### C BC, CMP #### [facility] [address] Hemoglobin (Bld) [Mass/Vol] 16.3 g/dL Normal 13.0-17.0 [facility] Comment on above: Performed By: #### C BC, CMP #### [facility] [address] [place] [address] [place] Lymphocytes (Bld) [#/Vol] 1.6 10*3/uL Normal 1.00-4.8 [facility] Comment on above: Performed By: #### C BC, CMP #### [place] [address] [place] Lymphocytes/100 WBC (Bld) 26.0 % Normal . [facility] Comment on above: Performed By: #### C BC, CMP #### [facility] [address] [place] [address] [place] MCH (RBC) [Entitic mass] 30.9 pg Normal 27.5-35.2 [facility] Comment on above: Performed By: #### C BC, CMP #### [facility] [address] MCV (RBC) [Entitic vol] 90.8 fL Normal 83.5-101 [facility] Comment on above: Performed By: #### C BC, CMP #### [facility] [address] Mean Corpuscular HGB Conc 34.0 g/dL Normal 32.5-35.6 [facility] Comment on above: Performed By: #### C BC, CMP #### [facility] [address] [place] [address] [place] Monocytes (Bld) [#/Vol] 0.6 10*3/uL Normal 0.0-0.8 [facility] Comment on above: Performed By: #### C BC, CMP #### [facility] [address] [place] [address] [place] Monocytes/100 WBC (Bld) 9.4 % Normal . [facility] Comment on above: Performed By: #### C BC, CMP #### [facility] [address] [place] [address] [place] Neutrophils (Bld) [#/Vol] 3.8 10*3/uL Normal 1.8-7.7 [facility] Comment on above: Performed By: #### C BC, CMP #### [facility] [address] [place] [address] [place] Neutrophils/100 WBC (Bld) 61.7 % Normal . [facility] Comment on above: Performed By: #### C BC, CMP #### [facility] [address] [id number] [place] Nucleated RBC/100 WBC (Bld) [Ratio] 0.2 % Normal 0-0.5 [facility] Comment on above: Performed By: #### C BC, CMP #### [facility] [address] [place] [address] [place] Platelet mean volume (Bld) [Entitic vol] 7.2 fL Normal 6.6-10.1 [facility] Comment on above: Performed By: #### C BC, CMP #### [facility] [address] [id number] [place] Platelets (Bld) [#/Vol] 241 10*3/uL Normal 150-450 [facility] Comment on above: Performed By: #### C BC, CMP #### [address] RBC (Bld) [#/Vol] 5.27 10*6/uL Normal 3.90-5.60 [facility] Comment on above: Performed By: #### C BC, CMP #### [address] WBC (Bld) [#/Vol] 6.1 10*3/uL Normal 4.5-11.0 [facility] Comment on above: Performed By: #### C BC, CMP #### [address] Comprehensive Metabolic Pane velia 03-23-2021 Albumin [Mass/Vol] 3.6 g/dL Normal 3.2-5.5 [facility] Comment on above: Performed By: #### C BC, CMP #### [address] Albumin/Globulin [Mass ratio] 1.3 {ratio} Normal [facility] Comment on above: Performed By: #### C BC, CMP #### [address] ALP [Catalytic activity/Vol] 58 U/L Normal 32-92 [facility] Comment on above: Result Comment: PERF ORMED BY: [place] [address] PATHOLOGIST COMPREHENSIVE ADVISOR TIARA BARNARD M.D. Performed By: #### C BC, CMP #### [address] ALT [Catalytic activity/Vol] 14 U/L Normal 10-60 [facility] Comment on above: Performed By: #### C BC, CMP #### [address] AST [Catalytic activity/Vol] 16 U/L Normal 10-42 [facility] Comment on above: Performed By: #### C BC, CMP #### [address] Bilirubin [Mass/Vol] 0.6 mg/dL Normal 0.3-1.2 [facility] Comment on above: Performed By: #### C BC, CMP #### [facility] [address] Calcium [Mass/Vol] 9.3 mg/dL Normal 8.2-10.2 [facility] Comment on above: Performed By: #### C BC, CMP #### [facility] [address] Chloride [Moles/Vol] 107 mmol/L Normal 95-114 [facility] Comment on above: Performed By: #### C BC, CMP #### [address] CO2 [Moles/Vol] 23.1 mmol/L Normal 22.0-30.0 [facility] Comment on above: Performed By: #### C BC, CMP #### [address] Creatinine [Mass/Vol] 0.84 mg/dL Normal 0.64-1.27 [facility] Comment on above: Performed By: #### C BC, CMP #### [address] Estimated GFR ( [place] > 60 Normal [facility] Comment on above: Result Comment: GFR estimated reference range: According to KDOQI guidelines, <60 ml/min/1.73m2 is sufficient to diagnose a patient with chronic kidney disease. Performed By: #### C BC, CMP #### [place] [address] [place] Estimated GFR (Non- Am > 60 Normal [facility] Comment on above: Performed By: #### C BC, CMP #### [facility] [address] [place] [address] [place] Globulin (S) [Mass/Vol] 2.7 g/dL Normal [facility] Comment on above: Performed By: #### C BC, CMP #### [place] [address] [place] Glucose [Mass/Vol] 92 mg/dL Normal 70-100 [facility] Comment on above: Result Comment: [facility] Glucose Reference Range is dependent on time and content of last meal. Glucose of more than 200 mg/dL in a nonstressed, ambulatory subject supports the diagnosis of Diabetes Mellitus. ADA recommended reference range Performed By: #### C BC, CMP #### [facility] [address] [place] [address] [place] Potassium [Moles/Vol] 4.0 mmol/L Normal 3.5-5.1 [facility] Comment on above: Performed By: #### C BC, CMP #### [facility] [address] [place] [address] [place] Protein [Mass/Vol] 6.3 g/dL Normal 6.1-7.9 [facility] Comment on above: Performed By: #### C BC, CMP #### [facility] [address] [id number] [place] Sodium [Moles/Vol] 140 mmol/L Normal 136-146 [facility] Comment on above: Performed By: #### C BC, CMP #### [facility] [address] [place] [address] [place] Urea nitrogen [Mass/Vol] 9 mg/dL Normal 9-23 [facility] Comment on above: Performed By: #### C BC, CMP #### [facility] [address] [id number] [place] ECG 12 lead ECGon 03-23-2021 ECG 12 lead ECG [facility] [address] [place] [address] Electrocardiograph Report Signed Patient: Hernandez Perrin MR#: [id number] 97 : 1975 Acct:[id number] Age/Sex: 46 / M ADM Date: 03/23/21 Loc: PS Room: Type: [facility] Attending Dr: Franco Pan MD Ordering Provider: Franco Pan MD Date of Service: 03/23/21 ECG/ECG 12 lead ECG: LT SHOULDER ARTHROSCOPY, POSSIBLE LABRAL CUFF REPAIR Copies to: Test Reason : Blood Pressure : / mmHG Vent. Rate : 070 BPM Atrial Rate : 070 BPM P-R Int : 174 ms QRS Dur : 100 ms QT Int : 384 ms P-R-T Axes : 027 030 060 degrees QTc Int : 414 ms Normal sinus rhythm Normal ECG When compared with ECG of 18-AUG-2020 08:48, No significant change was found Confirmed by FRANCO CORTES MD ([id number]) on 03/24/2021 9:24:04 AM Referred By: TEMITOPE PAN Electronically Signed By:FRANCO CORTES MD Transcribed By: MUS Signed By Franco Cortes MD 0924 Normal [facility] MR shoulder LT wo conon 10-0 MR shoulder LT wo con [facility] [address] [place] [address] MRI Report Signed Patient: Hernandez Perrin MR#: [id number] 97 : 1975 Acct:[id number] Age/Sex: 45 / M ADM Date: 02/04/21 [facility]: Type[facility] Attending Dr: Franco Pan MD Ordering Provider: Franco Pan MD Date of Service: 02/04/21 MR/MR shoulder LT wo con: Strain of muscle(s) and tendon(s) of the rotator cuff of lef Copies to: Franco Pan MD MRI LEFTshoulder without contrast TECHNIQUE: Multiplanar T1 and T2-weighted imaging of the LEFT shoulder obtained without contrast. HISTORY: Continued LEFT shoulder pain after surgery in August. Decreased range of motion. Weakness. No bone marrow edema or fracture identified. No significant arthrosis of the acromioclavicular joint seen. Subacromial decompression changes identified. There is increased signal identified in the midportion of the supraspinatus tendon near the greater tuberosity insertion. This may correspond with a partial tear. The infraspinatus tendon and subscapularis tendon are intact. Small amount of subacromial subdeltoid bursal fluid identified. The glenoid labrum, biceps label complex and long head of biceps tendon are intact. No significant joint effusion is seen. The signal intensity of the remaining musculature is normal. No subcutaneous abnormalities identified. MR/MR shoulder LT wo con IMPRESSION: Small moderate subacromial subdeltoid bursal fluid with associated subacromial decompressive changes. No bony destruction. Partial tear of the supraspinatus tendon near the greater tuberosity insertion. Impression dictated by: Bj Newsome M.D.02/04/2021 4:07 PM Dictation Location: [facility] Transcribed By: [facility] 02/04/21 1607 Dictated By: Bj Newsome DO 02/04/21 1603 Signed By: 02/04/21 160 [facility] XR shoulder LT min 2V*on XR shoulder LT min 2V* [facility] [address] [place] [address] XRay Report Signed Patient: Hernandez Perrin MR#: [id number] 97 : 1975 Acct:[id number] Age/Sex: 45 / M ADM Date: 09/09/20 Loc: [facility] Room: Type: [facility] Attending Dr: Franco Pan MD Ordering Provider: Franco Pan MD Date of Service: 09/09/20 XR/XR shoulder LT min 2V*: Strain of muscle(s) and tendon(s) of the rotator cuff of lef Copies to: Franco Pan MD 2 views plain filmLEFT shoulder HISTORY:LEFT shoulder arthroscopy with subacromial decompression COMPARISON:None Postoperative changes of the acromioclavicular joint. Tiffin screw in the proximal humeral shaft. The bony structures intact. Adequate bony alignment. No soft tissue abnormality. XR/XR shoulder LT min 2V* IMPRESSION:Uncomplicated postoperative changes. Impression dictated by: Bj Newsome M.D.09/09/2020 12:46 PM Dictation Location: [facility] Transcribed By: [facility] 09/09/20 1246 Dictated By: Bj Newsome DO 09/09/20 1244 Signed By: 09/09/20 1246 [facility] Consent for COVID Vaccineon 09-04-2020 SARS-CoV-2 (COVID-19) RNA LAMIN+probe Ql (Unsp spec) [id number]#1.00CD:127 Normal [facility] COVID-19 FRon 08-30-2020 SARS-CoV-2 (COVID-19) RNA LAMIN+probe Ql (Unsp spec) Negative Normal Negative [facility] Comment on above: Order Comment: Healt hcare Worker?: N Result Comment: Test ing for SARS-CoV-2 by RT-PCR This test was developed and its performance characteristics determined by [employer] ([employer]) and validated at the [facility]. This test has not been FDA cleared or approved. This test has been authorized by FDA under an Emergency Use Authorization (EUA). This test has been validated in accordance with the FDA's Guidance Document (Policy for Diagnostics Testing in Laboratories Certified to Perform High Complexity Testing under CLIA prior to Emergency Use Authorization for Coronavirus Disease-2019 during the Public Health Emergency) issued on July 31, 2019. This test is only authorized for the duration of time the declaration that circumstances exist justifying the authorization of the emergency use of in vitro diagnostic tests for detection of SARS-CoV-2 virus and/or diagnosis of COVID-19 infection under section 564(b)(1) of the Act, 21 U.S.C. 360bbb-3(b)(1), unless the authorization is terminated or revoked sooner. PERFORMED BY: [place] [address] PATHOLOGIST COMPREHENSIVE ADVISOR TIARA BARNARD M.D. Performed By: #### C OVID-19 [facility] #### [address] COVID-19 Positive/Negativeon 08-30-2020 SARS-CoV-2 (COVID-19) N gene LAMIN+probe Ql (Resp) Negative Negative [facility] Comment on above: Testing for SARS-CoV -2 by RT-PCRThis test was developed and its performance characteristics determined by [employer] ([employer]) and validated at the [facility]. This test has not been FDA cleared or approved. This test has been authorized by FDA under an Emergency Use Authorization (EUA). This test has been validated in accordance with the FDA's Guidance Document (Policy for Diagnostics Testing in Laboratories Certified to Perform High Complexity Testing under CLIA prior to Emergency Use Authorization for Coronavirus Disease-2019 during the Public Health Emergency) issued on July 31, 2019. This test is only authorized for the duration of time the declaration that circumstances exist justifying the authorization of the emergency use of in vitro diagnostic tests for detection of SARS-CoV-2 virus and/or diagnosis of COVID-19 infection under section 564(b)(1) of the Act, 21 U.S.C. 360bbb-3(b)(1), unless the authorization is terminated or revoked sooner. Laboratory - Microbiology an d Antimicrobial susceptibilityon 08-30-2020 SARS-CoV-2 (COVID-19) RNA LAMIN+probe Ql (Unsp spec) N/A [facility] Albumin [Mass/volume] in Ser um or Plasmaon 08-18-2020 Albumin [Mass/Vol] 3.8 g/dL 3.2-5.5 [facility] Basophils Auto (Bld) [#/Vol] on 08-18-2020 Basophils (Bld) [#/Vol] 0.1 10*3/uL 0.0-0.2 [facility] Basophils/100 WBC Auto (Bld) on 08-18-2020 Basophils/100 WBC (Bld) 0.7 % [facility] Blood hemoglobin measurement (mass/volume)on 08-18-2020 Hemoglobin (Bld) [Mass/Vol] 16.5 g/dL 13.0-17.0 [facility] Blood leukocytes automated c ount (number/volume)on 08-18-2020 WBC (Bld) [#/Vol] 8.0 10*3/uL 4.5-11.0 [facility] Complete Blood Count Auto Di ffon 08-18-2020 Basophils (Bld) [#/Vol] 0.1 10*3/uL Normal 0.0-0.2 [facility] Comment on above: Result Comment: PERF ORMED BY: [place] [address] PATHOLOGIST COMPREHENSIVE ADVISOR TIARA BARNARD M.D. Performed By: #### C BC, CMP #### [address] Basophils/100 WBC (Bld) 0.7 % Normal . [facility] Comment on above: Performed By: #### C BC, CMP #### [facility] [address] Eosinophils (Bld) [#/Vol] 0.2 10*3/uL Normal 0.0-0.45 [facility] Comment on above: Performed By: #### C BC, CMP #### [facility] [address] Eosinophils/100 WBC (Bld) 2.1 % Normal . [facility] Comment on above: Performed By: #### C BC, CMP #### [address] Erythrocyte distribution width (RBC) [Ratio] 13.7 % Normal 12.0-14.8 [facility] Comment on above: Performed By: #### C BC, CMP #### [address] Hematocrit (Bld) [Volume fraction] 47.9 % Normal 38.8-50.0 [facility] Comment on above: Performed By: #### C BC, CMP #### [address] Hemoglobin (Bld) [Mass/Vol] 16.5 g/dL Normal 13.0-17.0 [facility] Comment on above: Performed By: #### C BC, CMP #### [place] [address] [place] Lymphocytes (Bld) [#/Vol] 1.8 10*3/uL Normal 1.00-4.8 [facility] Comment on above: Performed By: #### C BC, CMP #### [address] Lymphocytes/100 WBC (Bld) 21.9 % Normal . [facility] Comment on above: Performed By: #### C BC, CMP #### [address] MCH (RBC) [Entitic mass] 31.2 pg Normal 27.5-35.2 [facility] Comment on above: Performed By: #### C BC, CMP #### [facility] [address] MCV (RBC) [Entitic vol] 90.7 fL Normal 83.5-101 [facility] Comment on above: Performed By: #### C BC, CMP #### [facility] [address] Mean Corpuscular HGB Conc 34.4 g/dL Normal 32.5-35.6 [facility] Comment on above: Performed By: #### C BC, CMP #### [facility] [address] Monocytes (Bld) [#/Vol] 0.8 10*3/uL Normal 0.0-0.8 [facility] Comment on above: Performed By: #### C BC, CMP #### [facility] [address] Monocytes/100 WBC (Bld) 9.5 % Normal . [facility] Comment on above: Performed By: #### C BC, CMP #### [facility] [address] [place] [address] [place] Neutrophils (Bld) [#/Vol] 5.3 10*3/uL Normal 1.8-7.7 [facility] Comment on above: Performed By: #### C BC, CMP #### [facility] [address] Neutrophils/100 WBC (Bld) 65.8 % Normal . [facility] Comment on above: Performed By: #### C BC, CMP #### [facility] [address] [place] [address] [place] Nucleated RBC/100 WBC (Bld) [Ratio] 0.0 % Normal 0-0.5 [facility] Comment on above: Performed By: #### C BC, CMP #### [facility] [address] Platelet mean volume (Bld) [Entitic vol] 7.2 fL Normal 6.6-10.1 [facility] Comment on above: Performed By: #### C BC, CMP #### [address] Platelets (Bld) [#/Vol] 229 10*3/uL Normal 150-450 [facility] Comment on above: Performed By: #### C BC, CMP #### [address] RBC (Bld) [#/Vol] 5.28 10*6/uL Normal 3.90-5.60 [facility] Comment on above: Performed By: #### C BC, CMP #### [address] WBC (Bld) [#/Vol] 8.0 10*3/uL Normal 4.5-11.0 [facility] Comment on above: Performed By: #### C BC, CMP #### [address] Comprehensive Metabolic Pane velia 08-18-2020 Albumin [Mass/Vol] 3.8 g/dL Normal 3.2-5.5 [facility] Comment on above: Performed By: #### C BC, CMP #### [address] Albumin/Globulin [Mass ratio] 1.4 {ratio} Normal [facility] Comment on above: Performed By: #### C BC, CMP #### [address] ALP [Catalytic activity/Vol] 48 U/L Normal 32-92 [facility] Comment on above: Result Comment: PERF ORMED BY: [place] [address] PATHOLOGIST COMPREHENSIVE ADVISOR TIARA BARNARD M.D. Performed By: #### C BC, CMP #### [address] ALT [Catalytic activity/Vol] 16 U/L Normal 10-60 [facility] Comment on above: Performed By: #### C BC, CMP #### [facility] [address] [place] [id number] [place] AST [Catalytic activity/Vol] 15 U/L Normal 10-42 [facility] Comment on above: Performed By: #### C BC, CMP #### [facility] [address] [place] [id number] [facility] Bilirubin [Mass/Vol] 0.8 mg/dL Normal 0.3-1.2 [facility] Comment on above: Performed By: #### C BC, CMP #### [facility] [address] Calcium [Mass/Vol] 9.3 mg/dL Normal 8.2-10.2 [facility] Comment on above: Performed By: #### C BC, CMP #### [address] Chloride [Moles/Vol] 108 mmol/L Normal 95-114 [facility] Comment on above: Performed By: #### C BC, CMP #### [place] [address] [place] CO2 [Moles/Vol] 23.4 mmol/L Normal 22.0-30.0 [facility] Comment on above: Performed By: #### C BC, CMP #### [facility] [address] Creatinine [Mass/Vol] 0.86 mg/dL Normal 0.64-1.27 [facility] Comment on above: Performed By: #### C BC, CMP #### [facility] [address] [place] [address] [place] Estimated GFR ( [place] > 60 Normal [facility] Comment on above: Result Comment: GFR estimated reference range: According to KDOQI guidelines, <60 ml/min/1.73m2 is sufficient to diagnose a patient with chronic kidney disease. Performed By: #### C BC, CMP #### [place] [address] [place] Estimated GFR (Non- Am > 60 Normal [facility] Comment on above: Performed By: #### C BC, CMP #### [facility] [address] Globulin (S) [Mass/Vol] 2.7 g/dL Normal [facility] Comment on above: Performed By: #### C BC, CMP #### [facility] [address] Glucose [Mass/Vol] 99 mg/dL Normal 70-100 [facility] Comment on above: Result Comment: [place] Glucose Reference Range is dependent on time and content of last meal. Glucose of more than 200 mg/dL in a nonstressed, ambulatory subject supports the diagnosis of Diabetes Mellitus. ADA recommended reference range Performed By: #### C BC, CMP #### [facility] [address] Potassium [Moles/Vol] 4.4 mmol/L Normal 3.5-5.1 [facility] Comment on above: Performed By: #### C BC, CMP #### [facility] [address] Protein [Mass/Vol] 6.5 g/dL Normal 6.1-7.9 [facility] Comment on above: Performed By: #### C BC, CMP #### [address] Sodium [Moles/Vol] 140 mmol/L Normal 136-146 [facility] Comment on above: Performed By: #### C BC, CMP #### [facility] [address] [place] [address] [place] Urea nitrogen [Mass/Vol] 13 mg/dL Normal 9-23 [facility] Comment on above: Performed By: #### C BC, CMP #### [place] [address] [place] Creatinine and Glomerular fi ltration rate.predicted panel (S/P/Bld)on 08-18-2020 Creatinine [Mass/Vol] 0.86 mg/dL 0.64-1.27 [facility] ECG 12 lead ECGon 08-18-2020 ECG 12 lead ECG [facility] [address] [place] [address] Electrocardiograph Report Signed Patient: Hernandez Perrin MR#: [id number] 97 : 1975 Acct:[id number] Age/Sex: 45 / M ADM Date: 08/18/20 Loc: PS Room: Type: [facility] Attending Dr: Franco Pan MD Ordering Provider: Franco Pan MD Date of Service: 08/18/20 ECG/ECG 12 lead ECG: LT SHOULDER SCOPE, RCR Copies to: Test Reason : Blood Pressure : / mmHG Vent. Rate : 069 BPM Atrial Rate : 069 BPM P-R Int : 158 ms QRS Dur : 098 ms QT Int : 384 ms P-R-T Axes : -15 047 038 degrees QTc Int : 411 ms Normal sinus rhythm Normal ECG No previous ECGs available Confirmed by NELSON DIEHL DO ([id number]) on 08/18/2020 12:41:18 PM Referred By: TREVIN PAN Electronically Signed By:NELSON DIEHL DO Transcribed By: MUS Dictated By: Nelson Diehl DO 08/18/20 0848 Signed By: 08/18/20 1241 Normal [facility] Eosinophils Auto (Bld) [#/Vo l]on 08-18-2020 Eosinophils (Bld) [#/Vol] 0.2 10*3/uL 0.0-0.45 [facility] Eosinophils/100 WBC Auto (Bl d)on 08-18-2020 Eosinophils/100 WBC (Bld) 2.1 % [facility] Erythrocyte distribution wid th Auto (RBC) [Ratio]on 08-18-2020 Erythrocyte distribution width (RBC) [Ratio] 13.7 % 12.0-14.8 [facility] Estimated glomerular filtrat ion rate (GFR) non- Americanon 08-18-2020 GFR/1.73 sq M.predicted among non-blacks MDRD (S/P/Bld) [Vol rate/Area] > 60 mL/Min [facility] Globulin Calc (S) [Mass/Vol] on 08-18-2020 Globulin (S) [Mass/Vol] 2.7 g/dL [facility] Hematocrit Auto (Bld) [Volum e fraction]on 08-18-2020 Hematocrit (Bld) [Volume fraction] 47.9 % 38.8-50.0 [facility] Laboratory - Hematology and Cell countson 08-18-2020 Nucleated RBC/100 WBC (Bld) [Ratio] 0.0 % 0-0.5 [facility] Lymphocytes Auto (Bld) [#/Vo l]on 08-18-2020 Lymphocytes (Bld) [#/Vol] 1.8 10*3/uL 1.00-4.8 [facility] Lymphocytes/100 WBC Auto (Bl d)on 08-18-2020 Lymphocytes/100 WBC (Bld) 21.9 % [facility] MCH Auto (RBC) [Entitic mass ]on 08-18-2020 MCH (RBC) [Entitic mass] 31.2 pg 27.5-35.2 [facility] MCHC Auto (RBC) [Mass/Vol]on 08-18-2020 MCHC (RBC) [Mass/Vol] 34.4 g/dL 32.5-35.6 [facility] MCV Auto (RBC) [Entitic vol] on 08-18-2020 MCV (RBC) [Entitic vol] 90.7 fL 83.5-101 [facility] Monocytes Auto (Bld) [#/Vol] on 08-18-2020 Monocytes (Bld) [#/Vol] 0.8 10*3/uL 0.0-0.8 [facility] Monocytes/100 WBC Auto (Bld) on 08-18-2020 Monocytes/100 WBC (Bld) 9.5 % [facility] Neutrophils Auto (Bld) [#/Vo l]on 08-18-2020 Neutrophils (Bld) [#/Vol] 5.3 10*3/uL 1.8-7.7 [facility] Neutrophils/100 WBC Auto (Bl d)on 08-18-2020 Neutrophils/100 WBC (Bld) 65.8 % [facility] No Panel Informationon 08-18 Estimated GFR () > 60 mL/Min [facility] Comment on above: GFR estimated refere nce range: According to KDOQI guidelines, <60 ml/min/1.73m2 is sufficient to diagnose a patient with chronic kidney disease. Pharmacy Creatinine Clearance (Chem N/A [facility] Platelet mean volume Auto (B ld) [Entitic vol]on 08-18-2020 Platelet mean volume (Bld) [Entitic vol] 7.2 fL 6.6-10.1 [facility] Platelets Auto (Bld) [#/Vol] on 08-18-2020 Platelets (Bld) [#/Vol] 229 10*3/uL 150-450 [facility] Protein [Mass/volume] in Ser um or Plasmaon 08-18-2020 Protein [Mass/Vol] 6.5 g/dL 6.1-7.9 [facility] RBC Auto (Bld) [#/Vol]on RBC (Bld) [#/Vol] 5.28 10*6/uL 3.90-5.60 [facility] Serum or plasma alanine hameed otransferase measurement without P-5'-P (enzymatic activion 08-18-2020 ALT No additional P-5'-P [Catalytic activity/Vol] 16 U/L 10-60 [facility] Serum or plasma albumin/glob ulin mass ratioon 08-18-2020 Albumin/Globulin [Mass ratio] 1.4 {ratio} [facility] Serum or plasma alkaline gavin sphatase measurement (enzymatic activity/volume)on 08-18-2020 ALP [Catalytic activity/Vol] 48 U/L 32-92 [facility] Serum or plasma aspartate am inotransferase measurement (enzymatic activity/volume)on 08-18-2020 AST [Catalytic activity/Vol] 15 U/L 10-42 [facility] Serum or plasma calcium cecilio urement (mass/volume)on 08-18-2020 Calcium [Mass/Vol] 9.3 mg/dL 8.2-10.2 [facility] Serum or plasma chloride david surement (moles/volume)on 08-18-2020 Chloride [Moles/Vol] 108 mmol/L 95-114 [facility] Serum or plasma glucose cecilio urement (mass/volume)on 08-18-2020 Glucose [Mass/Vol] 99 mg/dL 70-100 [facility] Comment on above: ADA recommended refe rence rangeRandom Glucose Reference Range is dependent on time and content of last meal. Glucose of more than 200 mg/dL in a nonstressed, ambulatory subject supports the diagnosis of Diabetes Mellitus. Serum or plasma potassium me asurement (moles/volume)on 08-18-2020 Potassium [Moles/Vol] 4.4 mmol/L 3.5-5.1 [facility] Serum or plasma sodium measu rement (moles/volume)on 08-18-2020 Sodium [Moles/Vol] 140 mmol/L 136-146 [facility] Serum or plasma total biliru bin measurement (mass/volume)on 08-18-2020 Bilirubin [Mass/Vol] 0.8 mg/dL 0.3-1.2 [facility] Serum or plasma total carbon dioxide measurement (moles/volume)on 08-18-2020 CO2 [Moles/Vol] 23.4 mmol/L 22.0-30.0 [facility] Serum or plasma urea nitroge n measurement (mass/volume)on 08-18-2020 Urea nitrogen [Mass/Vol] 13 mg/dL 9-23 [facility] Consent for COVID Vaccineon 08-13-2020 SARS-CoV-2 (COVID-19) RNA LAMIN+probe Ql (Unsp spec) [id number]#1.00CD:127 Normal [facility] Consent for COVID Vaccineon 08-11-2020 SARS-CoV-2 (COVID-19) RNA LAMIN+probe Ql (Unsp spec) [id number]#1.00CD:127 Normal [facility] Coding Summary.on 08-05-2020 Coding Summary. CODING DATE: [facility] STATUS: PAYOR: [employer] DESCRIPTION [employer] - Level 1B ($11-$20) ADMIT DX: REASON FOR VISIT DX: Z23 Encounter for immunization FINAL DX: PRINCIPAL: Z23 Encounter for immunization SECONDARY: PYMT PROC APC STAT DESCRIPTION DOCTOR NAME DATE NOTE: The code number assigned matches the documented diagnosis and / or procedure in the patient's chart. However, the narrative phrase printed from the coding software may appear abbreviated, or result in slightly different terminology. Coded By: Rosemary Clark Date Saved: 08/05/2020 11:25 am Normal [facility] BASIC METABOLIC PANELon 12-29 Calcium mass conc 9.4 mg/dL Normal 8.6-10.3 [facility] Comment on above: Order Comment: No: D o not add to previous draw Performed By: #### 2 8732, 40705 ####[facility] [place] [address], [place] Chloride molar conc 105 mmol/L Normal 98-107 [facility] [place] Comment on above: Order Comment: No: D o not add to previous draw Performed By: #### 2 9632, 94383 ####[facility] [place] [address], [place] CO2 molar conc 21 mmol/L Normal 21-31 [facility] [place] Comment on above: Order Comment: No: D o not add to previous draw Performed By: #### 2 7232, 79114 ####[facility] [place] [address], [place] Creatinine mass conc 0.96 mg/dL Normal 0.70-1.30 [facility] [place] Comment on above: Order Comment: No: D o not add to previous draw Performed By: #### 2 9332, 27205 ####[facility] [place] [address], [place] GFR/1.73 sq M predicted among blacks MDRD vol rate/area (S/P/Bld) mL/min/{1.73_m2} Normal >60 The [facility] [place] Comment on above: Order Comment: No: D o not add to previous draw Performed By: #### 2 6632, 47847 ####[facility] [place] [address], [place] GFR/1.73 sq M predicted among non-blacks MDRD vol rate/area (S/P/Bld) mL/min/{1.73_m2} Normal >60 The [facility] [place] Comment on above: Order Comment: No: D o not add to previous draw Performed By: #### 2 5532, 51226 ####[facility] [place] [address], [facility] Glucose mass conc 94 mg/dL Normal 70-100 The [facility] [place] Comment on above: Order Comment: No: D o not add to previous draw Performed By: #### 2 6832, 44596 ####[facility] [place] [address], [facility] Potassium molar conc 3.8 mmol/L Normal 3.5-5.1 [facility] [place] Comment on above: Order Comment: No: D o not add to previous draw Performed By: #### 2 0332, 62091 ####[facility] [place] [address], [facility] Sodium molar conc 136 mmol/L Normal 136-145 The [facility] [place] Comment on above: Order Comment: No: D o not add to previous draw Performed By: #### 2 6832, 04927 ####[facility] [place] [address], [facility] Urea nitrogen mass conc 18 mg/dL Normal 7-25 The [facility] [place] Comment on above: Order Comment: No: D o not add to previous draw Performed By: #### 2 6932, 64114 ####[facility] [place] [address], [facility] CBC COMPLETE BLOOD COUNTon 0 - Erythrocyte distribution width Auto Ratio (RBC) 12.3 % Normal 11.5-15.0 The [facility] [place] Comment on above: Order Comment: No: D o not add to previous draw Performed By: #### 2 9932, 28552 ####[facility] [place] [address], [facility] Hematocrit Auto Volume Fraction (Bld) 45.6 % Normal 39.0-50.0 [facility] [place] Comment on above: Order Comment: No: D o not add to previous draw Performed By: #### 2 7732, 13657 ####[facility] [facility] Hemoglobin mass conc (Bld) 16.2 g/dL Normal 13.0-17.0 [facility] [place] Comment on above: Order Comment: No: D o not add to previous draw Performed By: #### 2 5532, 60372 ####[facility] [facility].[address] MCH Auto Entitic mass (RBC) 31.3 pg Normal 27.0-33.0 [facility] [place] Comment on above: Order Comment: No: D o not add to previous draw Performed By: #### 2 3832, 97743 ####[facility] [facility].[address] MCHC Auto mass conc (RBC) 35.5 g/dL High 32.0-35.0 [facility] [place] Comment on above: Order Comment: No: D o not add to previous draw Performed By: #### 2 2532, 54502 ####[facility] [facility].[address] MCV Auto Entitic volume (RBC) 88.2 fL Normal 82.0-98.0 [facility] [place] Comment on above: Order Comment: No: D o not add to previous draw Performed By: #### 2 0532, 04520 ####[facility] [facility].[address] Nucleated RBC/100 WBC Ratio (Bld) 0 % Normal 0-0 [facility] [place] Comment on above: Order Comment: No: D o not add to previous draw Performed By: #### 2 7532, 64890 ####[facility] [facility].[address] PLAT CNT 210 10*3/uL Normal 150-400 [facility] [place] Comment on above: Order Comment: No: D o not add to previous draw Performed By: #### 2 5532, 22834 ####[facility] RBC Auto #/vol (Bld) 5.17 10*6/uL Normal 4.20-5.70 [facility] [place] Comment on above: Order Comment: No: D o not add to previous draw Performed By: #### 2 5532, 91411 ####[facility] WBC Auto #/vol (Bld) 8.34 10*3/uL Normal 4.00-10.60 [facility] [place] Comment on above: Order Comment: No: D o not add to previous draw Performed By: #### 2 5532, 49118 ####[facility] Cardiovascular Lab Reporton 01-11-2018 Cardiovascular Lab Report [facility] Patient Name: Hernandez Perrin MR #: [id number] Physician: Honey Grewal MD Service Date: 01/10/2018Department of Birthdate: 1975Medicine Room #: 3AB [id number] ofCardiologyAdult CardiovascularServicesUn[place] [address]Phone Fax Cardiovascular Laboratory ReportPROCEDURE: Transesophageal echocardiogram and cardioversion.INDICATION: Atrial fibrillation.ATTENDING DOCTOR: Dr. Grewal.FELLOW DOCTOR: Yemi Hurtado M.D.PROCEDURE IN DETAIL: An informed consent was obtained from the patientafter explaining indication, risks, benefits, and alternatives. Thepatient understood and agreed and signed the consent form. The patient wasbrought to the organic lab worker. ALEXANDRO was performed under conscious sedation. Thepatient obtained a total of 5 mg of Versed and 25 mcg of fentanyl duringthe procedure through intravenous access. The transesophagealechocardiogram did not show any thrombus in the left atrial appendage.Full ALEXANDRO report in the chart. After the transesophageal echocardiogram wascompleted, synchronized biphasic cardioversion was done with 200 joules ofenergy. The patient successfully converted to sinus rhythm as evidenced bythe 12-lead EKG done postprocedure. No complications throughout theprocedure on the immediate postprocedure setting.Electronically Signed by:Honey Grewal MD 01/21/2018 06:19 A Honey Grewal MD I was present for the entire procedure. Date Dict: 01/10/2018/01:58 P/Domenic Richards Trans: 01/11/2018 02:24 A/Michael_JN:[id number]: Puneet Quispe M.D. [address] [place] [address] Normal [facility] [place] HEMOGLOBIN A1Con 01-11-2018 Glucose mass conc 100 mg/dL Normal 70-126 [facility] [place] Comment on above: Order Comment: No: D o not add to previous draw Performed By: #### 5 6101, 95572 ####[facility] [facility].[address] Hemoglobin A1c/Hemoglobin.to salvador mass fraction (Bld) 5.1 % Normal 4.0-6.0 The [facility] [place] Comment on above: Order Comment: No: D o not add to previous draw Performed By: #### 5 6101, 09633 ####[facility] [facility].[address] UFH HEPARIN ASSAYon 01-12-20 18 UNFRACTIONATED HEPARIN 0.50 IU/mL Normal 0.30-0.70 [facility] [place] Comment on above: Result Comment: Khadijah roxaban and Apixaban will interfere with the anti Xa assay used tomonitor UFH and LMWH. Performed By: #### 2 7070, 71347 ####[facility] UFH HEPARIN ASSAYon 01-11-20 18 UNFRACTIONATED HEPARIN 0.51 IU/mL Normal 0.30-0.70 The [facility] [place] Comment on above: Result Comment: Khadijah roxaban and Apixaban will interfere with the anti Xa assay used tomonitor UFH and LMWH. Performed By: #### 2 5532, 91737 ####[place] [id number] [facility].[address] UNFRACTIONATED HEPARIN 0.59 IU/mL Normal 0.30-0.70 [facility] [place] Comment on above: Result Comment: [place] roxaban and Apixaban will interfere with the anti Xa assay used tomonitor UFH and LMWH. Performed By: #### 2 5532, 19631 ####[address] UNFRACTIONATED HEPARIN 0.69 IU/mL Normal 0.30-0.70 The [facility] [place] Comment on above: Result Comment: [place] roxaban and Apixaban will interfere with the anti Xa assay used tomonitor UFH and LMWH. Performed By: #### 2 5532, 57138 ####[place] [id number] [facility].[address] APTTon 01-09-2018 aPTT Coag time (Bld) 34.6 s Normal 25.0-35.0 The [facility] [place] Comment on above: Order Comment: No: D o not add to previous draw Result Comment: ALL RESULTS MUST BE INTERPRETED WITH RESPECT TO BLOOD DRAWING ARTIFACTOR DILUTION ERROR OF ANTICOAGULANT AT THE TIME OF SAMPLING.THE APTT SHOULD NOT BE USED TO MONITOR UNFRACTIONATED HEPARIN THERAPY, THIS LABORATORY NO LONGER HAS AN ESTABLISHED THERAPEUTIC RANGE BASEDON THE APTT. IT IS RECOMMENDED THAT THE UFH - HEPARIN ASSAY (ANTI-XAACTIVITY) BE USED FOR THIS PURPOSE. Performed By: #### 2 5532, 23096 ####[address] BASIC METABOLIC PANELon 12-29 Calcium mass conc 9.4 mg/dL Normal 8.6-10.3 [facility] [place] Comment on above: Order Comment: No: D o not add to previous draw Performed By: #### 2 3032, 52145 ####[facility] [place] [address], [place] Chloride molar conc 107 mmol/L Normal 98-107 [facility] [place] Comment on above: Order Comment: No: D o not add to previous draw Performed By: #### 2 5532, 05240 ####[facility] [place] [address], [place] CO2 molar conc 24 mmol/L Normal 21-31 [facility] [place] Comment on above: Order Comment: No: D o not add to previous draw Performed By: #### 2 7432, 19298 ####[facility] [place] [address], [place] Creatinine mass conc 0.89 mg/dL Normal 0.70-1.30 [facility] [place] Comment on above: Order Comment: No: D o not add to previous draw Performed By: #### 2 5732, 31692 ####[facility] [place] [address], [place] GFR/1.73 sq M predicted among blacks MDRD vol rate/area (S/P/Bld) mL/min/{1.73_m2} Normal >60 The [facility] [place] Comment on above: Order Comment: No: D o not add to previous draw Performed By: #### 2 3632, 69841 ####[facility] [place] [address], [place] GFR/1.73 sq M predicted among non-blacks MDRD vol rate/area (S/P/Bld) mL/min/{1.73_m2} Normal >60 The [facility] [place] Comment on above: Order Comment: No: D o not add to previous draw Performed By: #### 2 2332, 96309 ####[facility] [place] [address], [facility] Glucose mass conc 86 mg/dL Normal 70-100 The [facility] [place] Comment on above: Order Comment: No: D o not add to previous draw Performed By: #### 2 5532, 18090 ####[facility] [place] [address], [facility] Potassium molar conc 4.2 mmol/L Normal 3.5-5.1 [facility] [place] Comment on above: Order Comment: No: D o not add to previous draw Performed By: #### 2 7032, 97256 ####[facility] [facility] [place] [address], [facility] Sodium molar conc 136 mmol/L Normal 136-145 The [facility] [place] Comment on above: Order Comment: No: D o not add to previous draw Performed By: #### 2 6532, 05293 ####[facility] [facility] [place] [address], [facility] Urea nitrogen mass conc 11 mg/dL Normal 7-25 [facility] [place] Comment on above: Order Comment: No: D o not add to previous draw Performed By: #### 2 4332, 65713 ####[facility] [facility] [place] [address], [facility] CBC W/DIFFon 01-09-2018 ABS BASOPHILS 0.1 10*3/uL Normal 0.0-0.2 [facility] [place] Comment on above: Performed By: #### 2 9532, 91044 ####[facility] [place] [address], [facility] ABS IMM GRANS 0.0 10*3/uL Normal 0.0-0.2 [facility] [place] Comment on above: Performed By: #### 2 5432, 97787 ####[facility] [place] [address], [facility] ABS NEUTROPHILS 7.2 10*3/uL Normal 1.6-7.6 [facility] [place] Comment on above: Performed By: #### 2 5532, 18624 ####[facility] Basophils Auto #/vol (Bld) 0.7 % Normal 0.0-1.0 [facility] [place] Comment on above: Performed By: #### 2 5532, 18555 ####[facility] Eosinophils Auto #/vol (Bld) 0.2 10*3/uL Normal 0.0-0.5 [facility] [place] Comment on above: Performed By: #### 2 5532, 01894 ####[facility] [facility].[address] Eosinophils/100 WBC Auto (Bld) 1.7 % Normal 0.0-6.0 [facility] [place] Comment on above: Performed By: #### 2 5532, 23068 ####[facility] [facility].[address] Erythrocyte distribution width Auto Ratio (RBC) 12.5 % Normal 11.5-15.0 [facility] [place] Comment on above: Performed By: #### 2 5532, 68364 ####[facility] [facility].[address] Hematocrit Auto Volume Fraction (Bld) 48.5 % Normal 39.0-50.0 [facility] [place] Comment on above: Performed By: #### 2 5532, 69697 ####[facility] [facility].[address] Hemoglobin mass conc (Bld) 17.0 g/dL Normal 13.0-17.0 [facility] [place] Comment on above: Performed By: #### 2 5532, 79025 ####[facility] IMMATURE GRANS 0.4 % Normal 0.0-1.0 [facility] [place] Comment on above: Performed By: #### 2 5532, 20415 ####[address] Lymphocytes Auto #/vol (Bld) 1.9 10*3/uL Normal 1.2-4.0 [facility] [place] Comment on above: Performed By: #### 2 5532, 03917 ####[facility] Lymphocytes/100 WBC Auto (Bld) 18.9 % Low 20.0-45.0 [facility] [place] Comment on above: Performed By: #### 2 8132, 61938 ####[address] MCH Auto Entitic mass (RBC) 30.9 pg Normal 27.0-33.0 [facility] [place] Comment on above: Performed By: #### 2 7632, 66605 ####[address] MCHC Auto mass conc (RBC) 35.1 g/dL High 32.0-35.0 [facility] [place] Comment on above: Performed By: #### 2 4132, 28216 ####[place] [id number] [address] MCV Auto Entitic volume (RBC) 88.2 fL Normal 82.0-98.0 [facility] [place] Comment on above: Performed By: #### 2 5532, 74012 ####[address] Monocytes Auto #/vol (Bld) 0.8 10*3/uL Normal 0.1-1.0 [facility] [place] Comment on above: Performed By: #### 2 5532, 75355 ####[facility] [facility] [place] [address], [facility] MONOS 7.6 % Normal 5.0-12.0 [facility] [place] Comment on above: Performed By: #### 2 5532, 03944 ####[facility] [facility] [place] [address], [facility] Neutrophils/100 WBC Auto (Bld) 70.7 % Normal 40.0-72.0 [facility] [place] Comment on above: Performed By: #### 2 5532, 56221 ####[facility] [facility].[address] Nucleated RBC/100 WBC Ratio (Bld) 0 % Normal 0-0 [facility] [place] Comment on above: Performed By: #### 2 5532, 16615 ####[place] [id number] [facility].[address] PLAT CNT 234 10*3/uL Normal 150-400 [facility] [place] Comment on above: Performed By: #### 2 5532, 83732 ####[facility] [facility].[address] RBC Auto #/vol (Bld) 5.50 10*6/uL Normal 4.20-5.70 [facility] [place] Comment on above: Performed By: #### 2 5532, 78080 ####[facility] [facility].[address] WBC Auto #/vol (Bld) 10.12 10*3/uL Normal 4.00-10.60 [facility] [place] Comment on above: Performed By: #### 2 5532, 29137 ####[place] [id number] [facility].[address] History and Physicalon 01-09 History and Physical [id number] Admitted: 01/09/2018 Date of : 1975 Attending Physician: Kris Campo MD Room #: 3AB [id number] Discharge Date: HISTORY AND PHYSICALCHIEF COMPLAINT: Palpitation.HISTORY OF PRESENT ILLNESS: This patient is a 42-year-old male with onlypast medical history of paroxysmal atrial fibrillation, who presented [facility] complaining of feeling palpitations started yesterdayaround 5 a.m. The patient had another episode in April and he was foundto have atrial fibrillation, which was converted to sinus on Cardizem only.The patient has been doing well since then until yesterday. The patienthas no history of cardiac disease. The patient denied any associatedsymptoms including difficulty breathing, chest pain, dizziness, headache,nausea, and vomiting. In the [place], the patient was found to haveatrial fibrillation with RVR with heart rate of 128. He was started onCardizem drip. Labs were unremarkable. On the medical floor, his heartrate was around 80 to 90.REVIEW OF SYSTEMS: Fourteen review of system was reviewed and negativeexcept as mentioned in HPI.PAST MEDICAL HISTORY: Paroxysmal atrial fibrillation, GERD.PAST SURGICAL HISTORY: Knee surgery and rotator cuff surgery.SOCIAL HISTORY: Ex-smoker. He smoked for 20+ years and quit 1 year ago.Quit alcohol and illicit drug 6-1/2 years ago.FAMILY HISTORY: Noncontributory.ALLERGIES: Penicillins.PHYSICAL EXAMINATION: VITAL SIGNS: Temperature 97.9, pulse 82, bloodpressure 101/73, saturation 98 on room air.GENERAL: Alert, oriented, not in acute distress.HEENT: Atraumatic and normocephalic. EOMI. PERRLA.CARDIOVASCULAR: Irregular rhythm. Normal rate. No murmur.RESPIRATORY: Lungs are clear to auscultation bilaterally.GI: Soft, nondistended, nontender.EXTREMITIES: No pitting edema.MUSCULOSKELETAL: Normal strength. No tenderness.NEUROLOGICAL: Cranial nerves II through XII intact. No neuro deficitsnoted.SKIN: Warm to touch. No rashes.ASSESSMENT:1. Paroxysmal atrial fibrillation with RVR. [id number] score is 0.2. Suspected obstructive sleep apnea.PLAN: We will do electrolytes, TSH, and troponin. The patient was startedon oral Cardizem. The patient is on aspirin, we will resume. Echo isordered. Plan is ALEXANDRO with cardioversion later today. The patient wasrecommended to have a sleep study outpatient.Electronically Signed by:Kris Campo MD 01/10/2018 08:03 A __Kris Campo, MDDate Dict: 01/09/2018/01:04 P/Kris Campo, MDDate Trans: 01/09/2018 01:59 P/[id number] Normal [facility] [place] LIVER BATTERYon 01-09-2018 Albumin mass conc 3.9 g/dL Normal 3.5-5.7 [facility] [place] Comment on above: Order Comment: No: D o not add to previous draw Performed By: #### 2 0032, 24501 ####[facility] [facility] [place] [address], [facility] ALKALINE PHOSPH 58 IU/L Normal 34-104 [facility] [place] Comment on above: Order Comment: No: D o not add to previous draw Performed By: #### 2 6832, 40043 ####[facility] [facility] [place] [address], [facility] ALT enzyme act/vol 12 U/L Normal 7-52 [facility] [place] Comment on above: Order Comment: No: D o not add to previous draw Performed By: #### 2 2132, 24306 ####[facility] [place] [address], [facility] AST enzyme act/vol 13 U/L Normal 13-39 [facility] [place] Comment on above: Order Comment: No: D o not add to previous draw Performed By: #### 2 1613, 99291 ####[facility] [facility] [place] [address], [facility] Bilirubin mass conc 0.9 mg/dL Normal 0.3-1.0 [facility] [place] Comment on above: Order Comment: No: D o not add to previous draw Performed By: #### 2 0432, 74714 ####[facility] [place] [address], [facility] Bilirubin.direct mass conc 0.1 mg/dL Normal 0.0-0.2 [facility] [place] Comment on above: Order Comment: No: D o not add to previous draw Performed By: #### 2 5532, 12376 ####[facility] Protein mass conc 6.8 g/dL Normal 6.0-8.3 The [facility] [place] Comment on above: Order Comment: No: D o not add to previous draw Performed By: #### 2 5532, [id number] ####[facility] [facility] MAGNESIUM BLOODon 01-09-2018 Magnesium mass conc 2.0 mg/dL Normal 1.9-2.7 The [facility] [place] Comment on above: Order Comment: No: D o not add to previous draw Performed By: #### 2 5532, [id number] ####[facility] [facility] [place] [address], [facility] PHOSPHORUS BLOODon 8 Phosphate mass conc 2.7 mg/dL Normal 2.5-5.0 The [facility] [place] Comment on above: Order Comment: No: D o not add to previous draw Performed By: #### 2 5532, [id number] ####[facility] [place] [address], [facility] PROTHROMBIN TIMEon 8 INR Coag RelTime (PPP) 1.04 {INR} Normal 0.91-1.16 The [facility] [place] Comment on above: Order Comment: No: D o not add to previous draw Result Comment: ACCC P RECOMMENDED INR FOR WARFARIN THERAPY CONDITION INRPROPHYLAXIS OF VENOUS THROMBOSIS 2-3(HIGH-RISK SURGERY)TREATMENT OF VENOUS THROMBOSIS 2-3TREATMENT OF PULMONARY EMBOLISM 2-3PREVENTION OF SYSTEMIC EMBOLISM: 2-3 ACUTE MYOCARDIAL INFARCTION TISSUE HEART VALVES VALVULAR HEART DISEASE ATRIAL FIBRILLATION RECURRENT SYSTEMIC EMBOLISMMECHANICAL HEART VALVE 2.5-3.5 FROM: ORAL ANTICOAGULANTS. MECHANISM OF ACTION, CLINICALEFFECTIVENESS, AND OPTIMAL THERAPEUTIC RANGE. [id number];108:[id number]-246S. Performed By: #### 2 1353, 21238 ####[facility] [facility].[address] Prothrombin time (PT) Coag time (PPP) 13.6 s Normal 12.3-14.8 [facility] Comment on above: Order Comment: No: D o not add to previous draw Result Comment: ALL RESULTS MUST BE INTERPRETED WITH RESPECT TO BLOOD DRAWING ARTIFACTOR DILUTION ERROR OF ANTICOAGULANT AT THE TIME OF SAMPLING. Performed By: #### 2 2370, 43773 ####[facility] [facility].[address] TROPONIN-Ion 01-09-2018 Troponin I.cardiac mass conc 0.00 ng/mL Normal 0.00-0.04 The [facility] [place] Comment on above: Order Comment: No: D o not add to previous draw Result Comment: REFE RENCE RANGES: 0.00 - 0.14 ng/ml NEGATIVE 0.15 - 0.25 ng/ml INDETERMINATE > 0.25 ng/ml INDICATIVE OF AN M.I. Performed By: #### 2 4448, 00860 ####[facility] [facility].[address] TSH3on 01-09-2018 TSH 3RD GENERATION 1.44 uIU/mL Normal 0.34-5.60 The [facility] [place] Comment on above: Order Comment: No: D o not add to previous draw Performed By: #### 2 0932, 38204 ####[facility] UFH HEPARIN ASSAYon 01-10-20 18 UNFRACTIONATED HEPARIN 0.28 IU/mL Low 0.30-0.70 The [facility] [place] Comment on above: Result Comment: Khadijah roxaban and Apixaban will interfere with the anti Xa assay used tomonitor UFH and LMWH. Performed By: #### 2 32, 49966 ####[facility] [facility].[address] Discharge Summaryon 05-24-19 18 Discharge Summary MR#: [id number] [facility] Hernandez Perrin Admitted: 05/22/2017 Discharged: 05/23/2017 Date of : 1975 Physician: Liyah Andrade MD DISCHARGE SUMMARYDISCHARGE PHYSICIAN: Dr Michelet SeoERVICE: CCU.HOSPITAL COURSE: The patient is a 42-year-old male who [facility] for SVT with amild elevation of troponin at the [facility] of about 0.128 in thefacility. The patient presented to [facility] after noticing someincreasing heart rate related to discomfort in the middle of the chest andsome diaphoresis without any shortness of breath.PAST MEDICAL HISTORY: GERD.ALLERGIES: Penicillin.The patient was transferred to [facility] [place] forfurther evaluation and management. Prior to transfer from [facility], the patient got one dose of adenosine for his SVT, 25 mg of p.o.metoprolol after an initial 5 mg IV of metoprolol, 0.25 mg of digoxin aswell as 50 mg of Lovenox.FAMILY HISTORY: Noncontributory at this time according to the patient.SOCIAL HISTORY: Remote drug use of cocaine and marijuana over 6 years ago.Ex-tobacco smoker, quit in October 2016.HOSPITAL COURSE: The patient was subsequently transferred to [facility]. At [facility] [place], the patientwas noted to have some sinus tachycardia with some PACs that self resolved.The patient has been denying any further chest discomfort since presentingto [facility] [place]. Serial troponin were followed withhighest number at [facility] being 0.07 that has since trended down to 0.04. Allhis electrolytes were within normal limits. His TSH was within normallimits at 1.67. His EKG today showed sinus rhythm. Vitals have beenstable without any untoward events since he has been in here. The patientwas only on Heparin drip which was discontinued this morning. The onlynew medication added during this admission is diltiazem 180 mg daily . Anechocardiogram that was done at [facility] yesterday showed anejection fraction greater than 55% without any other abnormalities noted atthat time. His chest x-ray at [facility] was within normal limits.The patient continued to be stable without any chest pain, without anyshortness of breath, without any diaphoresis, without any incident at thistime. His vital continued to be stable. He has been on room air. Oxygensaturation has been great over 99% to 100%. The patient is comfortablegoing home and desired to go home. The patient will be following up withDr. Powell as an outpatient for continued monitor and management. Patientwas advised to presents to emergency department should he develop any chestpain, shortness of breath, or increased in heart rate.DISCHARGE MEDICATIONS: Diltiazem 180 mg daily, Prilosec per home regimen.Reviewed By:Elli Perez DO 05/24/2017 02:45 PElectronically Signed by:Liyah Andrade MD 05/25/2017 12:38 P Liyah Andrade MD I personally saw this patient on the day of the encounter, performed thekey portion(s) of the service and participated in the management andconfirm the resident's documentation. Please note there may be anadditional personal documentation from me. Date Dict: 05/23/2017/01:44 P/Darrel Myers Trans: 05/24/2017 07:36 A/mmoDN_[id number]: Alexander Powell M.D. [address] [facility] [address] [id number] Normal The [facility] [place] APTTon 05-23-2017 aPTT Coag time (Bld) 37.5 s High 25.0-35.0 The [facility] [place] Comment on above: Order Comment: No: D o not add to previous draw Result Comment: ALL RESULTS MUST BE INTERPRETED WITH RESPECT TO BLOOD DRAWING ARTIFACTOR DILUTION ERROR OF ANTICOAGULANT AT THE TIME OF SAMPLING.THE APTT SHOULD NOT BE USED TO MONITOR UNFRACTIONATED HEPARIN THERAPY, THIS LABORATORY NO LONGER HAS AN ESTABLISHED THERAPEUTIC RANGE BASEDON THE APTT. IT IS RECOMMENDED THAT THE UFH - HEPARIN ASSAY (ANTI-XAACTIVITY) BE USED FOR THIS PURPOSE. Performed By: #### 5 6101, 67526 ####[facility] [facility].[address] BASIC METABOLIC PANELon 05-01 Calcium mass conc 9.1 mg/dL Normal 8.6-10.3 The [facility] [place] Comment on above: Order Comment: Yes: Add to Previous draw if able Performed By: #### 0 0071, 30065 ####[facility] [facility] [place] [address], [facility] Chloride molar conc 110 mmol/L High 98-107 The [facility] [place] Comment on above: Order Comment: Yes: Add to Previous draw if able Performed By: #### 0 0071, 91539 ####[facility] [facility] [place] [address], [facility] CO2 molar conc 24 mmol/L Normal 21-31 The [facility] [place] Comment on above: Order Comment: Yes: Add to Previous draw if able Performed By: #### 0 0071, 34784 ####[facility] [facility] [place] [address], [place] Creatinine mass conc 0.74 mg/dL Normal 0.70-1.30 The [facility] [place] Comment on above: Order Comment: Yes: Add to Previous draw if able Performed By: #### 0 0071, 47689 ####[facility] [place] [address], [facility] GFR/1.73 sq M predicted among blacks MDRD vol rate/area (S/P/Bld) mL/min/{1.73_m2} Normal >60 The [facility] [place] Comment on above: Order Comment: Yes: Add to Previous draw if able Performed By: #### 0 007, 40487 ####[facility] [place] [address], [facility] GFR/1.73 sq M predicted among non-blacks MDRD vol rate/area (S/P/Bld) mL/min/{1.73_m2} Normal >60 The [facility] [place] Comment on above: Order Comment: Yes: Add to Previous draw if able Performed By: #### 0 007, 96246 ####[facility] [place] [address], [facility] Glucose mass conc 85 mg/dL Normal 70-100 The [facility] [place] Comment on above: Order Comment: Yes: Add to Previous draw if able Performed By: #### 0 007, 10318 ####[facility] [place] [address], [facility] Potassium molar conc 3.9 mmol/L Normal 3.5-5.1 The [facility] [place] Comment on above: Order Comment: Yes: Add to Previous draw if able Performed By: #### 0 0071, 40664 ####[facility] [place] [address], [place] Sodium molar conc 138 mmol/L Normal 136-145 The [facility] [place] Comment on above: Order Comment: Yes: Add to Previous draw if able Performed By: #### 0 0071, 22767 ####[facility] Urea nitrogen mass conc 13 mg/dL Normal 7-25 The [facility] [place] Comment on above: Order Comment: Yes: Add to Previous draw if able Performed By: #### 0 0071, 43334 ####[facility] [facility].[address] CBC COMPLETE BLOOD COUNTon - Erythrocyte distribution width Auto Ratio (RBC) 13.6 % Normal 11.5-16.9 The [facility] [place] Comment on above: Order Comment: No: D o not add to previous draw Performed By: #### 5 0608 ####[address] Hematocrit Auto Volume Fraction (Bld) 45.6 % Normal 39.0-55.0 The [facility] [place] Comment on above: Order Comment: No: D o not add to previous draw Performed By: #### 5 0608 ####[address] Hemoglobin mass conc (Bld) 15.7 g/dL Normal 13.9-16.3 The [facility] [place] Comment on above: Order Comment: No: D o not add to previous draw Performed By: #### 5 0608 ####[id number] [facility].[address] MCH Auto Entitic mass (RBC) 31.0 pg Normal 24.0-32.0 The [facility] [place] Comment on above: Order Comment: No: D o not add to previous draw Performed By: #### 5 0608 ####[address] [place] [address], [facility] MCHC Auto mass conc (RBC) 34.4 g/dL Normal 32.0-36.0 The [facility] [place] Comment on above: Order Comment: No: D o not add to previous draw Performed By: #### 5 0608 ####[address] MCV Auto Entitic volume (RBC) 90.1 fL Normal 80.0-100.0 The [facility] [place] Comment on above: Order Comment: No: D o not add to previous draw Performed By: #### 5 0608 ####[facility] [place] [address], [facility] PLAT CNT 255 Thou/mm3 Normal 100-400 The [facility] [place] Comment on above: Order Comment: No: D o not add to previous draw Performed By: #### 5 0608 ####[facility]3000 [facility].[address] RBC Auto #/vol (Bld) 5.06 mill/mm3 Normal 4.30-5.90 The [facility] [place] Comment on above: Order Comment: No: D o not add to previous draw Performed By: #### 5 0608 ####[facility] [facility].[address] WBC Auto #/vol (Bld) 8.1 Thou/mm3 Normal 4.0-10.0 The [facility] [place] Comment on above: Order Comment: No: D o not add to previous draw Performed By: #### 5 0608 ####[facility] [facility].[address] CPK-MB PROFILEon 05-23-2017 CK enzyme act/vol 37 U/L Normal 30-223 The [facility] [place] Comment on above: Performed By: #### 2 2232, 93944 ####[facility] CK.MB mass conc 4.9 ng/mL Critically high 0.0-1.9 The [facility] [place] Comment on above: Performed By: #### 2 3532, 01718 ####[facility] CK.MB mass conc 1.8 ng/mL Normal 0.0-5.0 The [facility] [place] Comment on above: Result Comment: IF T OTAL CK <200 U/L AND: 1. CKMB IS 5-10 NG/ML----BORDERLINE 2. CKMB IS >10 NG/ML----INDICATIVE OF [place] OR IF TOTAL CK >200 U/L AND CKMB INDEX >1.9----INDICATIVE OF [place] Performed By: #### 2 6032, 28861 ####[facility] CK enzyme act/vol 43 U/L Normal 30-223 The [facility] [place] Comment on above: Order Comment: No: D o not add to previous draw Performed By: #### 2 6632, 16665 ####[facility] CK.MB mass conc 2.3 ng/mL Normal 0.0-5.0 The [facility] [place] Comment on above: Order Comment: No: D o not add to previous draw Result Comment: IF T OTAL CK <200 U/L AND: 1. CKMB IS 5-10 NG/ML----BORDERLINE 2. CKMB IS >10 NG/ML----INDICATIVE OF [place] OR IF TOTAL CK >200 U/L AND CKMB INDEX >1.9----INDICATIVE OF [place] Performed By: #### 2 1632, 34550 ####[facility] CK.MB mass conc 5.3 ng/mL Critically high 0.0-1.9 The [facility] [place] Comment on above: Order Comment: No: D o not add to previous draw Performed By: #### 2 0032, 04113 ####[facility] History and Physicalon 05-23 History and Physical [id number] Admitted: 05/22/2017 Date of : 1975 Attending Physician: Heather Burnham MD Room #: 3AB [id number] Discharge Date: HISTORY AND PHYSICALCHIEF COMPLAINT: Chest pain and palpitation.HISTORY OF PRESENT ILLNESS: The patient is a 42-year-old male with nosignificant past cardiac history, who was transferred from [facility] due to chest pain, elevated troponin and atrial fibrillation withRVR. The patient reported that while he was at work today around 10:30a.m. he started having palpitation and some discomfort in the middle of thechest with no radiation. He did not feel short of breath, but felt sweaty.He had no nausea, no vomiting. He has no coughing. No fevers. No chills.No abdominal pain. No diarrhea. He never had discomfort like this before.He never had any heart disease before. He had no cardiac evaluation in [facility]. He denies any family history of cardiac disease. He used to smokefor 15 years, about 1 pack a day, but he quit in October of last year in 2016.In the ER, in the outside hospital, he was afebrile. His initial heartrate was in the 150s. He was noted to be in SVT and was given adenosine.He went to atrial fibrillation with RVR after that. He was given then IVmetoprolol 5 mg, then oral metoprolol 25. He was given 0.25 of digoxin.He was also given morphine 4 mg and a full dose of aspirin. He was checkedfor troponins. His troponin initially was negative but on recheck was0.106. He was given enoxaparin 80 mg. His troponin checked again was0.128. It was reported to me that his last troponin after that was 0.092,but I could not find that troponin resolved. The patient's heart rate wasin the 120 range. When he arrived here, his heart rate was irregular, butit was in the 70s. The patient continued to have mild chest discomfort inthe middle of the chest, felt like pressure with no radiation he said.Cardiology is to see patient in the morning. They did tell the nurse thatthey wanted the patient to have heparin drip started.PAST MEDICAL HISTORY:1. GERD.2. History of drug abuse last use was over 6 years ago.SOCIAL HISTORY: He does not smoke currently, he quit in October of 2016 andhe smoked about 1 pack for 15 years before that. He does not drink alcoholor use any drugs.FAMILY HISTORY: He denies any history of heart disease in the family. Hedoes not recall any significant history in the family.REVIEW OF SYSTEMS: A 10-point review of system were done and pertinentpositives and negatives as mentioned in the HPI.PHYSICAL EXAMINATION: VITALS: Temperature 97.5, pulse 75, respirations 16,and blood pressure 107/73.GENERAL: Pleasant, no acute distress.LUNGS: Clear to auscultation bilaterally.HEENT: Face is symmetric. Oral cavity with no lesions. Pupils equal andreactive.CV: Irregular, not tachy, could not appreciate any murmurs.ABDOMEN: Soft, nontender, and nondistended. Normal bowel sounds. Norebound or guarding.EXTREMITIES: No edema.NEURO: He is alert and oriented x3. Face is symmetric. Speech is fluent.No cerebellar signs.LABS: All from outside hospital. Troponins are as mentioned above. Hiswhite blood count 7.9, hemoglobin 16.5, platelets 244, and potassium 3.9.Sodium 143, chloride 107, bicarb 27, glucose 113, BUN 17, and creatinine0.87. TSH 2.57, calcium 9.6.DIAGNOSTIC STUDIES: Initial EKG from outside hospital showed heart rate of196. The patient had SVT at that time. His repeat EKG showed him to be inatrial fibrillation with RVR with heart rate of 120. There was no obviousST elevation or depression. No obvious signs of ischemia on the EKG.IMAGING: Also, I could not find imaging report from outside hospital. Thepatient had a CD sent with him,for an x-ray. The patient also did have anecho there I did find the CD, but I do not have the report of the echo atthis time.ASSESSMENT/PLAN:1. Atrial fibrillation with rapid ventricular response, Cardiology to see patient in the morning. He is rate controlled at this time. He did receive oral metoprolol and IV metoprolol as well as digoxin. We will give him more metoprolol for rate control if his heart rate is above 110.2. Non ST elevation myocardial infarction. Elevated troponin, possibly due to atrial fibrillation with RVR. TSH was normal. Have Cardiology to see patient. We will keep him n.p.o. at this time. We will start heparin as requested by the Cardiology. We will get serial troponins. We will try to obtain the official report for the echo and we will have the echo be uploaded in our system to be reviewed by Cardiology.3. History of drug abuse. Patient is in remission for over 5 years.4. DVT prophylaxis will be on heparin drip.5. Full code.Electronically Signed by:Heather Burnham MD 05/23/2017 07:38 P __Heather Burnham MDDate Dict: 05/23/2017/12:26 A/Domenic Solorio Trans: 05/23/2017 01:06 A/Michael_[id number] Normal The [facility] [place] PROTHROMBIN TIMEon 8 INR Coag RelTime (PPP) 1.03 {INR} Normal 0.91-1.16 The [facility] [place] Comment on above: Order Comment: No: D o not add to previous draw Result Comment: ACCC P RECOMMENDED INR FOR WARFARIN THERAPY CONDITION INRPROPHYLAXIS OF VENOUS THROMBOSIS 2-3(HIGH-RISK SURGERY)TREATMENT OF VENOUS THROMBOSIS 2-3TREATMENT OF PULMONARY EMBOLISM 2-3PREVENTION OF SYSTEMIC EMBOLISM: 2-3 ACUTE MYOCARDIAL INFARCTION TISSUE HEART VALVES VALVULAR HEART DISEASE ATRIAL FIBRILLATION RECURRENT SYSTEMIC EMBOLISMMECHANICAL HEART VALVE 2.5-3.5 FROM: ORAL ANTICOAGULANTS. MECHANISM OF ACTION, CLINICALEFFECTIVENESS, AND OPTIMAL THERAPEUTIC RANGE. [id number];108:231S-246S. Performed By: #### 5 9599, 79153 ####[facility] [facility] [place] [address], [facility] Prothrombin time (PT) Coag time (PPP) 13.5 s Normal 12.3-14.8 [facility] Comment on above: Order Comment: No: D o not add to previous draw Result Comment: ALL RESULTS MUST BE INTERPRETED WITH RESPECT TO BLOOD DRAWING ARTIFACTOR DILUTION ERROR OF ANTICOAGULANT AT THE TIME OF SAMPLING. Performed By: #### 5 6101, 79541 ####[facility] [facility] [place] [address], [facility] TROPONIN-Ion 05-23-2017 Troponin I.cardiac mass conc 0.04 ng/mL Normal 0.00-0.04 [facility] Comment on above: Order Comment: No: D o not add to previous draw Result Comment: REFE RENCE RANGES: 0.00 - 0.04 ng/ml NORMAL 0.05 - 0.50 ng/ml INDETERMINATE > 0.50 ng/ml CONSISTENT WITH AN M.I. Performed By: #### 2 5532, 35542 ####[facility] [facility] [place] [address], [facility] Troponin I.cardiac mass conc 0.04 ng/mL Normal 0.00-0.04 The [facility] [place] Comment on above: Order Comment: No: D o not add to previous draw Result Comment: REFE RENCE RANGES: 0.00 - 0.04 ng/ml NORMAL 0.05 - 0.50 ng/ml INDETERMINATE > 0.50 ng/ml CONSISTENT WITH AN M.I. Performed By: #### 2 5532, 54391 ####[facility] [facility] [place] [address], [facility] Troponin I.cardiac mass conc 0.07 ng/mL High 0.00-0.04 [facility] Comment on above: Order Comment: No: D o not add to previous draw Result Comment: REFE RENCE RANGES: 0.00 - 0.04 ng/ml NORMAL 0.05 - 0.50 ng/ml INDETERMINATE > 0.50 ng/ml CONSISTENT WITH AN M.I. Performed By: #### 2 5532, 13570 ####[facility] [facility].[address] TSH WITH REFLEXon 05-23-2017 Thyrotropin Qn 1.67 MICRO-IU/ML Normal 0.34-5.60 The [facility] [place] Comment on above: Performed By: #### 0 0071, 15450 ####[facility] [facility].[address] UFH HEPARIN ASSAYon 05-23-19 18 UNFRACTIONATED HEPARIN <0.10 Critically low 0.30-0.70 [facility] [facility] [place] Comment on above: Result Comment: Khadijah roxaban and Apixaban will interfere with the anti Xa assay used tomonitor UFH and LMWH.RESULTS CHECKED AND CALLED. ACCURATELY READ BACK BY RASTA LEIJA RN AT 09:37 Performed By: #### 3 [id number] ####[facility] [facility].[address] Vital Signs Date Time Vital Sign Value Performing Clinician Facility 02-07-2024 15:00-0400 Body mass index (BMI) [Ratio] 30.3 kg/m2 [facility] 02-07-2024 15:00-0400 Body temperature 98.4 [degF] [facility] 02-07-2024 11:32-0400 Body height 175.26 cm [facility] 02-07-2024 11:32-0400 Body weight 93.09 kg [facility] 02-07-2024 11:32-0400 Diastolic blood pressure 78 mm[Hg] [facility] 02-07-2024 11:32-0400 Heart rate 80 /min [facility] 02-07-2024 11:32-0400 Respiratory rate 16 /min [facility] 02-07-2024 11:32-0400 SaO2% (BldA) [Mass fraction] 98 % [facility] 02-07-2024 11:32-0400 Systolic blood pressure 104 mm[Hg] [facility] 06-07-2023 08:45-0500 Body height 175.26 cm Kellen Linn Other [facility] Other 06-07-2023 08:45-0500 Body mass index (BMI) [Ratio] 29.83 kg/m2 Kellen Linn Other [facility] Other 06-07-2023 08:45-0500 Body weight 91.63 kg Kellen Linn Other [facility] Other 06-07-2023 08:45-0500 Diastolic blood pressure 71 mm[Hg] Kellen Linn Other [facility] Other 06-07-2023 08:45-0500 Systolic blood pressure 108 mm[Hg] Kellen Linn Other [facility] Other 05-24-2021 11:15-0500 Body height 175.26 cm Franco Olexa Other [facility] Other 05-24-2021 11:15-0500 Body mass index (BMI) [Ratio] 29.68 kg/m2 Franco Olexa Other [facility] Other 05-24-2021 11:15-0500 Body weight 91.17 kg Franco Olexa Other [facility] Other 04-14-2021 12:00-0500 Body height 175.26 cm Franco Olexa Other [facility] Other 04-14-2021 12:00-0500 Body mass index (BMI) [Ratio] 29.53 kg/m2 Franco Olexa Other [facility] Other 04-14-2021 12:00-0500 Body weight 90.72 kg Franco Olexa Other [facility] Other 03-01-2021 11:30-0400 Body height 175.26 cm Franco Olexa Other [facility] Other 03-01-2021 11:30-0400 Body mass index (BMI) [Ratio] 29.62 kg/m2 Franco Olexa Other [facility] Other 03-01-2021 11:30-0400 Body weight 90.99 kg Franco Olexa Other [facility] Other 01-31-2021 11:00-0400 Body height 175.26 cm Franco Olexa Other [facility] Other 01-31-2021 11:00-0400 Body mass index (BMI) [Ratio] 29.53 kg/m2 Franco Olexa Other [facility] Other 01-31-2021 11:00-0400 Body weight 90.72 kg Franco Olexa Other [facility] Other Encounters Encounter Date Encounter Type Care Provider Facility Start: 02-07-2024 End: 02-07-2024 ambulatory [facility] Work Phone: Start: 02-07-2024 End: 02-07-2024 Patient encounter procedure [facility] Work Phone: Start: 09-26-2023 End: 09-26-2023 ambulatory [facility] Start: 09-26-2023 End: 09-26-2023 ambulatory [facility] Start: 09-11-2023 End: 09-11-2023 ambulatory [facility] Start: 06-07-2023 End: 06-07-2023 ambulatory Kellen Linn Other [facility] Other Start: 06-07-2023 Office outpatient ne w 30 minutes Kellen Linn [facility] Start: 12-11-2022 End: 12-11-2022 ambulatory Kellen Linn Other [facility] Other Start: 12-11-2022 Telephone encounter Kellen Linn [facility] Start: 05-24-2021 End: 05-24-2021 ambulatory Franco Olexa Other [facility] Other Start: 05-24-2021 Postop follow up vis it related to original px Franco Olexa [facility] Start: 04-21-2021 End: 04-21-[address] KELLEN LINN Facility:[facility] Start: 04-19-2021 End: 04-19-[address] KELLEN LINN Facility:[facility] Start: 04-14-2021 End: 04-14-2021 ambulatory Franco Olexa Other [facility] Other Start: 04-14-2021 Postop follow up vis it related to original px Franco Olexa [facility] Start: 04-11-2021 End: 04-11-2021 ambulatory Franco Olexa Other [facility] Other Start: 04-11-2021 Telephone encounter Franco Olexa [facility] Start: 04-10-2021 End: 04-10-2021 ambulatory JAH QUINTERO Facility:[facility] Start: 04-04-2021 End: 04-04-2021 ambulatory Franco Olexa Other [facility] Other Start: 04-04-2021 Telephone encounter Franco Olexa [facility] Start: 03-01-2021 End: 03-01-2021 ambulatory Franco Olexa Other [facility] Other Start: 03-01-2021 Office outpatient visit 25 minutes Franco Olexa [facility] Start: 02-08-2021 Office outpatient visit 25 minutes Franco Olexa [facility] Start: 01-31-2021 Office outpatient visit 25 minutes Franco Olexa [facility] Start: 08-30-2020 End: 08-30-2020 Patient encounter procedure Kellen Linn Work Phone: -Pre-Surgical Testing Start: 08-18-2020 End: 08-18-2020 Patient encounter procedure Kellen Linn Work Phone: -Pre-Surgical Testing Start: 06-21-2020 End: 06-21-2020 Patient encounter procedure Kellen Linn Work Phone: -MRI [address] Start: 01-09-2018 End: 01-11-2018 Evaluation and management of inpatient CHACHO RASHID Facility:[facility] Start: 05-23-2017 End: 05-23-2017 Evaluation and management of inpatient LIYAH ANDRADE Facility:[facility] Procedures Date Procedure Procedure Detail Performing Clinician Start: 06-21-2020 XR pre/post mri xray Hemant Linn Work Phone: Start: 06-21-2020 MRI of left shoulder Hemant Linn Work Phone: Start: 11-28-2018 General examination of patient Kellen Linn Other Start: 01-10-2018 [facility] Cardi ac Rhythm, Single HONEY URI Start: 01-10-2018 ULTRASONOGRAPHY OF H EART WITH AORTA, TRANSESOPHAGEAL HONEY URI Plan of Treatment Date Care Activity Detail Author [facility] Immunizations Immunization Date Immunization Notes Care Provider Fa zacarias 01-17-2021 Kenalog -40 mg Franco Olexa Other [facility] Other 08-19-2020 COVID-19 mRNA, Comirnaty (Pfizer) [facility] 07-29-2020 COVID-19 mRNA, Comirnaty (Pfizer) [facility] 07-08-2020 Kenalog -40 mg Franco Olexa Other [facility] Other Payers Date Payer Category Payer Unknown [id number] 1975 Unknown [id number] 1975 Unknown [id number] 1959 Private Health Insurance [facility] [id number] Private Health Insurance [facility] [id number] Self-pay Self Pay [id number] Unknown [id number] Unknown [id number] [id number] Social History Date Type Detail Facility Start: 08-18-2020 End: 04-06-2021 Tobacco smoking status CAIS Ex-smoker (finding) [facility] Start: 1975 Sex Assigned At Male [facility] Sex Assigned At Sex Assigned At [facility] [employer] Other Medical Equipment Procedure Code Equipment Code Equipment Origin al Text Equipment Identifier Dates Arthroscopy, shoulder Orthopaedic bone screw, bioabsorbable [id number] [facility] Start: 09-01-2020 Goals Date Patient Goal Desired Activity /State Clinical Notes 01-31-2021 to 09-26-2023 Note Date & Type Note Facility 09-26-2023 Note Patient: Hernandez garcia Procedure Summary Date: 09/26/23 Room / Location: [facility] 1 EP / [facility] (Cath) Anesthesia Start: 838 Anesthesia Stop: 1128 Procedure: Ablation a-fib paroxysmal Diagnosis: Paroxysmal atrial fibrillation (CMS/HCC) (Paroxysmal atrial fibrillation (CMS/HCC) [I48.0]) Providers: Rudi Earl MD Responsible Provider: Renny Andersen MD Anesthesia Type: general ASA Status: 2 Anesthesia Type: general Vitals Value Taken Time BP 130/82 05/29/24 1140 Temp 36.4 ???C (97.5 ???F) 09/26/23 1125 Pulse 83 09/26/23 1146 Resp 24 09/26/23 1146 SpO2 96 % 09/26/23 1146 Vitals shown include unvalidated device data. Anesthesia Post Evaluation Patient location during evaluation: PACU Patient participation: complete - patient participated Level of consciousness: awake and alert Pain score: 2 Pain management: adequate Multimodal analgesia pain management approach Airway patency: patent Two or more strategies used to mitigate risk of obstructive sleep apnea Cardiovascular status: hemodynamically stable Respiratory status: acceptable, room air, spontaneous ventilation and nonlabored ventilation Hydration status: euvolemic Patient is hemodynamically stable and is able to be discharged from PACU per anesthesia protocol. There were no known notable events for this encounter. [facility] [place] 09-26-2023 Note Patient: Hernandez garcia Procedure Summary Date: 09/26/23 Room / Location: [facility] 1 EP / [facility] (Cath) Anesthesia Start: 838 Anesthesia Stop: Procedure: Ablation a-fib paroxysmal Diagnosis: Paroxysmal atrial fibrillation (CMS/HCC) (Paroxysmal atrial fibrillation (CMS/HCC) [I48.0]) Providers: Rudi Earl MD Responsible Provider: Renny Andersen MD Anesthesia Type: general ASA Status: 2 Anesthesia Post Transport Note Transport to: PACU O2 Route: room air Patient Monitor: direct observation Transport: uneventful Patient condition is: stable [facility] [place] 09-26-2023 Note ATRIAL FIBRILLATION ABLATION PROCEDURE NOTE DATE OF PROCEDURE: 09/26/2023 PERFORMING PHYSICIAN: Dr. Rudi Earl CLERICAL OFFICE WORKER: MIKI CONSENT: Patient NAME OF THE PROCEDURE: Pulmonary Vein Isolation and Comprehensive EP study. INDICATIONS FOR PROCEDURE: 1. Persistent atrial fibrillation. PROCEDURES PERFORMED: 1. Sonosite guided venous access as noted below and images stored. 2. Comprehensive EP study and catheter ablation for persistent atrial fibrillation through the pulmonary vein isolation technique. This includes right atrial recording and pacing, His bundle recording and right ventricular recording and pacing. 3. Intracardiac EP 3D mapping. 4. Intracardiac echocardiogram 5. Left atrial and coronary sinus recording and pacing to assess ablation results. 6. Left heart pressure measurements and LV pacing and recording. 7. Induction of arrhythmia and testing of ablation results using intravenous adenosine infusion. 8. Fluroscopy. FLUROSCOPY: 2.1mins/ 19mGray PROCEDURE NOTE: Pt was brought to EP lab and she was in sinus rhythm, so ALEXANDRO was deferred. Thereafter, we proceeded to do atrial fibrillation ablation. Both the groins were then prepared and draped. Ultrasound was used to determine the course and patency of the femoral veins on both sides and they were noted to be patent and the image stored in PACS. After infiltration with 1% lidocaine, 4 venous sheaths were placed in the right as noted below. RFV: 8Fx3 ThermoCool SF Bi-Directional over SL1/ [facility], SL1:Octoray, 8Fx1 CS Catheter (EZ Steer) 9Fx1: ICE catheter. Heparin bolus was given followed by additional bolus and continuous intravenous drip to target ACT around 350. An intracardiac ultrasound catheter was inserted into the right atrium to examine the right atrial anatomy, atrial septum, pulmonary vein anatomy and to monitor for pericardial effusion and guide transseptal access. ICE revealed that the patient had a significantly mildy dilated right atrium and left atrium with the big eustachian pouch and minimal pericardial effusion and a very big eustachian valve which made catheter movement challenging. At this point I decided to proceed with the transseptal puncture to perform A. fib ablation. Double transseptal access technique was used to cross to the left side. Following the first transeptal access, which was achieved via puncture of the thinner aspect of the septum using Tiki needle, Pentaray catheter was placed in the left atrium. Second transseptal access was acquired and SL1 sheath was exchanged over a wire to 8.5F [facility]igo sheath. Pulmonary vein and left atrial anatomic mapping were performed using a 3-D CARTO computer-based mapping system. Identification of the pulmonary vein ostia was assisted by the left atrial signals on the ablation catheter, the ICE catheter and the Octoray catheter placed in the individual pulmonary veins. Esophagus was mapped using the UrbantechSOUND 3D mapping software and noted to lie towards the left side. A temperature probe was placed in the esophagus to monitor and avoid rise of temperature by more than a degree Celsius (Baseline 35.4C). Wide area circumferential ablation technique (WACA) was then performed with irrigated ST/SF catheter. Power settings were 40watts of 10-12s in the anterior aspect of WACA and 5-8s while ablating on the posterior wall as well as the roof. Following left WACA, isolation was noted. Following left WACA, entrance block was observed. There was change in temperature from baseline to 37C. Right sided PVI was then performed using a WACA approach with care to pace the anterior aspect of WACA and allyssa to ensure there was no phrenic capture. Phrenic pacing was performed while ablating on the anterior aspect. In the end, all pulmonary veins were isolated. Adenosine did not reveal any reconnection. Burst pacing at 240ms did not induce any arrhythmia. Phrenic nerve capture was documented. The ICE catheter was used to reexamine the intracardiac anatomy and this showed mild increase in pericardial effusion. Since no flutter could be induced, I did not proceed with flutter ablation. Protamine was given and phrenic nerve capture was documented at the end of the case. ICE catheter and all catheters were removed. Venous sheaths were pulled, and hemostasis noted. She was transferred to observation bay and then to hospital room for observation. LA baseline (mmHg) 1st and 2nd 20/5 HR 56bpm, 17/7 LA 600ms pacing (mmHg) 16/6 LA 450ms pacing (mmHg) 25/8 AHms 83, 83 (post abln) HVms 58, 54 9 (post abln) VERPms 600/280, VA condunction- AV Wenkebach ms 350ms AH jump ms NA AVNERP ms Straight to AERP AERP ms 600/240 POST PROCEDURE DIAGNOSIS 1. Early persistent atrial fibrillation s/p PVI (WACA). 2. EP study revealing no retrograde accessory pathway and no VA conduction. EBL: 15cc SPECIMEN REMOVED: None PLAN: 1. Anticoagulation after 4 hrs of sheath re (more content not included)... [facility] [place] 09-26-2023 Note Arterial Line: Date/Time: 09/26/2023 8:10 AM An arterial line was placed Procedure performed using ultrasound guidance.in the pre-op for the following indication(s): continuous blood pressure monitoring and blood sampling needed. A 20 gauge (size), 1 and 3/4 inch (length), Arrow (type) catheter was placed, into the Left radial artery, secured by tape and Tegaderm. Events: patient tolerated procedure well with no complications. Medications Administered lidocaine (XYLOCAINE) 1 % SubQ - infiltration 1 mL - 09/26/2023 8:10:00 AM Staffing Performed: resident/CLIENT SERVICE REPRESENTATIVE/CAA Anesthesiologist: Renny Andersen MD Resident/CLIENT SERVICE REPRESENTATIVE: Darnell Santillan MD Performed by: Darnell Santillan MD Authorized by: Renny Andersen MD [facility] [place] 09-26-2023 Note Airway Date/Time: 09/26/2023 9:02 AM Urgency: elective General Information and Staff Patient location during procedure: OR Anesthesiologist: Renny Andersen MD Resident/CLIENT SERVICE REPRESENTATIVE/CAA: Darnell Santillan MD Performed: resident/CLIENT SERVICE REPRESENTATIVE/CAA Indications and Patient Condition Indications for airway management: anesthesia Spontaneous Ventilation: absent Sedation level: deep Preoxygenated: yes Patient position: sniffing Mask difficulty assessment: 2 - vent by mask + OA or adjuvant +/- NMBA Final Airway Details Final airway type: endotracheal airway Successful airway: ETT Cuffed: yes Successful intubation technique: direct laryngoscopy Facilitating devices/methods: intubating stylet Endotracheal tube insertion site: oral Blade: Fredy Blade size: #3 ETT size (mm): 7.5 Cormack-Lehane Classification: grade IIb - view of arytenoids or posterior of glottis only Placement verified by: chest auscultation and capnometry Measured from: lips ETT to lips (cm): 22 Number of attempts at approach: 1 Number of other approaches attempted: 0 [facility] [place] 09-26-2023 Note Patient: Hernandez garcia Procedure Information Date/Time: 09/26/23829 Procedure: Ablation a-fib paroxysmal Location: [facility] / [facility] (Cath) Providers: Rudi Earl MD Relevant Problems Anesthesia (+) Obstructive sleep apnea syndrome Cardio (+) Paroxysmal atrial fibrillation (CMS/HCC) (In sinus this am, on eliquis) GI (+) GERD (gastroesophageal reflux disease) (Controlled) - Last TTE done in 2018, which demonstrated normal EF, no intracardiac shunt, and presence of LA appendage - Quit smoking 10 years ago Clinical information reviewed: Tobacco Allergies Meds Med Hx Surg Hx Fam Hx Physical Exam Airway Mallampati: II TM distance: >3 FB Neck ROM: full Cardiovascular - normal exam Dental Comments: Edentulous Pulmonary - normal exam Abdominal Anesthesia Plan ASA 2 general (Preop A line) The patient is not a current smoker. Patient did not smoke on day of procedure. intravenous induction Anesthetic plan and risks discussed with patient. Use of blood products discussed with patient who consented to blood products. Plan discussed with attending. Additional Equipment Requests Prior to Admission medications Medication Sig Start Date End Date Taking? Authorizing Provider apixaban (Eliquis) 5 mg tablet Take 1 tablet (5 mg) by mouth in the morning and at bedtime. 09/11/23 Rudi Earl MD flecainide (Tambocor) 100 mg tablet TAKE 1 TABLET EVERY 12 HOURS 06/08/23 Rudi Earl MD meloxicam (Mobic) 7.5 mg tablet 7.5 mg if needed. 06/26/23 Historical Provider, metoprolol succinate XL (Toprol-XL) 50 mg 24 hr tablet Take 1 tablet (50 mg) by mouth in the morning. 09/18/23 09/17/24 Rudi Earl MD omeprazole (PriLOSEC) [address] capsule Take 20 mg by mouth in the morning. Historical Provider, tiZANidine (Zanaflex) 4 mg tablet if needed. 09/04/23 Historical Provider, [facility] [place] 09-11-2023 Note [facility]rophys[facility] Consult Note Reason for visit: Afib 09/11/23 Patient here for 1 year follow up PAF. Denies chest pain and SOB. Had 1 short recent episode of lightheadedness. Says he feels his heart beat fast, but not irregularly. No recent labs or imaging since visit last year. He is in Afib now and states he went intot it this am EKG 09/11/23: Afib with RVR 08/15/22 Patient has been doing well since the flecainide was increased to 100 mg twice daily. Recent 30-day event monitor from 3 05/19/2019 to 07/27/2022 did not reveal the presence of atrial fibrillation suggestive of breakthrough despite using flecainide. This was noted on 28 June as well as 02 July and the remainder of the time he was in sinus rhythm. Continues to use CPAP for sleep apnea. He elects to proceed with ablation but does not have any holidays so would like to get it done next year. By pulse check he is in normal rhythm today Prior HPI: Hernandez Perrin is a 48 y.o. with paroxysmal atrial fibrillation which was initially diagnosed in 2017 and was subsequently seen by Dr. Powell. He was placed on flecainide 50 mg and had a recurrence in September 2017 and at that time was cardioverted at [place]. He was continued on the same dose and then subsequently had a recurrence in March 2021. He converted on his own and his dose was increased to 100 mg twice daily. He has also been diagnosed sleep apnea but does not use his machine He is otherwise active with no other chest pain or other issues EKG 05/10/2021 shows sinus rhythm 04/10/2021 shows sinus rhythm 04/10/2021 at 2 PM shows atrial fibrillation with controlled ventricular rate 03/18/2020 shows sinus rhythm 12/03/2019 shows sinus rhythm 02/19/2018 shows sinus rhythm Stress test from 03/31/2020 is a nuclear perfusion study which is negative for ischemia Echocardiogram performed on 03/31/2020 shows EF of 55 to 60% with normal left atrial and normal ventricular size no significant valvular abnormality was noted Holter that was placed on 03/18/2022 -03/21/2020 reveals no evidence of atrial fibrillation occasional PVCs were noted which is less than 1% and PACs were also seen which is less than 1% however there were no patient triggered events during the time of monitoring 1. Paroxysmal atrial fibrillation - Patient is without evidence of paroxysmal atrial fibrillation. He is symptomatic when he has his A. fib with RVR episodes and I discussed strategies to maintain sinus rhythm with a discussion of maintaining the antiarrhythmic drugs versus catheter ablation. He would like to come off the medication as much as possible and himself out and fibrillation. I have suggested that he focus on risk factor modification with weight loss and also to have compliance with sleep apnea treatment. I suggested that he trial a nasal pillow for FIONA treatment. If it is such that he does not have any more episodes of A. fib because of the weight loss he has achieved, and that he has instituted treatment for sleep apnea, then we can wait and see. On the other hand if he has recurrence then he can schedule A. fib ablation. I48.0: Paroxysmal atrial fibrillation ---- PMH: Past Medical History: Diagnosis Date Intermittent palpitations Obstructive sleep apnea syndrome Paroxysmal atrial fibrillation (CMS/HCC) PSH: Past Surgical History: Procedure Laterality Date CARDIOVERSION KNEE SURGERY SHOULDER SURGERY SH: Social Determinants of Health Tobacco Use: Medium Risk (06/28/2022) Patient History Smoking Tobacco Use: Former Smokeless Tobacco Use: Never Passive Exposure: Not on file Alcohol Use: Not on file Financial Resource Strain: Not on file Food Insecurity: Not on file Transportation Needs: Not on file Physical Activity: Not on file Stress: Not on file Social Connections: Not on file Intimate Partner Violence: Unknown (06/21/2023) [place] [facility] Fear of Current or Ex-Partner: Not on file Emotionally Abused: Not on file Physically Abused: Not on file Sexually Abused: Not on file Physically or Sexually Abused: Not on file Depression: Not on file Housing Stability: Not on file Utilities: Not on file Allergies: Allergies Allergen Reactions Penicillins Hives Weight: 94.3kg Visit Vitals Ht 1.727 m (5' 8 ) Wt 94.3 kg (208 lb) BMI 31.63 kg/m??? Smoking Status Former BSA 2.13 m??? Meds: Current Outpatient Medications on File Prior to Visit Medication Sig Dispense Refill aspirin 81 mg chewable tablet Chew 81 mg in the morning. flecainide (Tambocor) 100 mg tablet TAKE 1 TABLET EVERY 12 HOURS 180 tablet 3 meloxicam (Mobic) 7.5 mg tablet 7.5 mg if needed. metoprolol succinate XL (Toprol-XL) 50 mg 24 hr tablet TAKE 1 TABLET BY MOUTH ONCE DAILY DIRECTED. DO NOT CRUSH OR CHEW. 90 tablet 3 omeprazole (PriLOSEC) [address] capsule Take 20 (more content not included)... [facility] [place] 06-07-2023 Evaluation note Encounter Date Diagnosis Assessment Notes May, Trapezius strain, left, sequela (ICD-10 - S46.622S) Discussed heat stretches. Handout with stretches given to patient. Muscle relaxer prior to bedtime. Could be sedating for use during the day. Patient expresses understanding. May, Erectile dysfunction, unspecified erectile dysfunction type (ICD-10 - N52.9) Patient mentions this problem at the end of his office visit. Requested prescription for ED. [facility] Other 12-16-2021 Evaluation note* Encounter Date Diagnosis Assessment Notes Treatment Notes Treatment Clinical Notes Mar, Strain of muscle(s) and tendon(s) of the rotator cuff of left shoulder, initial encounter (ICD-10 - S46.012A) Patient is progressing well from surgery. Instructed on gentle motion and strengthening exercises. Call with questions/concerns. Patient to continue off work at this time. Mar, Tendinopathy of left rotator cuff (ICD-10 - M67.912) [facility] Other 12-06-2021 Evaluation note* Encounter Date Diagnosis Assessment Notes Treatment Notes Treatment Clinical Notes Mar, Other specified postprocedural states (ICD-10 - Z98.890) [facility] Other 10-12-2021 Evaluation note* Encounter Date Diagnosis Assessment Notes Treatment Notes Treatment Clinical Notes Jan, Strain of muscle(s) and tendon(s) of the rotator cuff of left shoulder, initial encounter (ICD-10 - S46.012A) MRI reviewed with patient as partial suprapinatus tear/thinning of supraspinatus. We will allow more time for improvement from original surgery at this time. Continue gentle motion/strengthenin g. If no improvement with conservative treatment, may consider surgical arthroscopy with rotator cuff repair. Patient to continue off work at this time. Jan, Tendinopathy of left rotator cuff (ICD-10 - M67.912) [facility] Other 10-04-2021 Evaluation note* Encounter Date Diagnosis Assessment Notes Treatment Notes Treatment Clinical Notes Jan, Strain of muscle(s) and tendon(s) of the rotator cuff of left shoulder, initial encounter (ICD-10 - S46.012A) Extensive discussion about current condition and treatment options available. Patient is not improving as expected with time and conservative treatment. An MRI will be necessary to assess for an injury that could require surgical treatment. Continue off work Jan, Tendinopathy of left rotator cuff (ICD-10 - M67.912) [facility] Other Evaluation noteNo Assessments Information Available [facility] Other Evaluation noteNo InformationNort [facility] Other [facility]Not[facility] Other Evaluation note* Diagnosis Onset Date Resolution Status Family history of prostate cancer acute Screening for prostate cancer acute [facility] Work Phone: Hisbkou general Narrative - Reported* Type Description Date Medical History heart disease Surgical History shoulder arthroscopy right RCR Surgical History arthroscopic knee surgery right Surgical History hernia- as a baby Surgical History Left shoulder arthro scopy [with subacromial decompression and Open subpectoral biceps tenodesis using Arthrex button fixation 09/01/20 [facility] Other Hisaqbt general Narrative - [employer] Other history general Narrative - Reported* Type Description Date Medical History heart disease Medical History afib Surgical History shoulder arthroscopy right RCR Surgical History arthroscopic knee surgery right Surgical History hernia- as a baby Surgical History Left shoulder arthro scopy [with subacromial decompression and Open subpectoral biceps tenodesis using Arthrex button fixation 09/01/20 Surgical History left shoulder arthro scopy with extensive release of adhesions and capsular release, BWC DOS 04/06/21 [facility] Other History general Narrative - ReportedNo[employer] Other history general Narrative - Reported* Type Description Date Medical History heart disease Medical History afib Surgical History Problem Title : past surgical history reviewed, Problem Description : past surgical history reviewed, Problem Comment : reviewed - no changes required, Problem Status : Active, Surgical History Problem Title : surg ical procedures, hx of, Problem Description : surgical procedures, hx of, Problem Comment : 5 knee surgeries Cardioversion 12/2017, Problem Status : Active, Surgical History Problem Title : surg ical procedures, hx of, Problem Description : surgical procedures, hx of, Problem Comment : 5 knee surgeries, Problem Status : Active, [facility] Other Summary Purpose Family History Relationship Condition Age at Onset Recorded Date/T alma Not Specified Chronic atrial fibrillation Unknown father Healthy adult Unknown Relationship Condition Age at Onset Recorded Date/T alma mother Chronic atrial fibrillation Unknown father Heart problem Unknown Advance Directives Advance Directive Response Recorded Date/ Time Advance Directives No May 4:11pm Chief Complaint and Reason for Visit Chief Complaint s46.912b Shoulder pain Shoulder pain Chief Complaint cough Reason for Visit Family history of pr ostate cancer Screening for prostate cancer Additional Source Comments (unrecognized sect ion and content) No Status Records FoundNo Status Records FoundNo Status Records FoundNo Status Records FoundNo Status Records Found INFORMATION SOURCE (unrecogn ized section and content) DATE CREATED AUTHOR 02/21/2018 [facility] DATE CREATED AUTHOR AUTHOR'S ORGANIZ ATION 11/19/2020 [facility] DATE CREATED AUTHOR AUTHOR'S ORGANIZ ATION 07/27/2021 [facility] DATE CREATED AUTHOR AUTHOR'S ORGANIZ ATION 10/01/2021 [facility] DATE CREATED AUTHOR AUTHOR'S ORGANIZ ATION 10/04/2023 [facility] REASON FOR VISIT (unrecogniz ed section and content) Recheck Left ShoulderMRI Res ults Left Shouldermedication questionRecheck Left Shoulderpost op scriptsrefillshoulder/neck pain Care Teams (unrecognized sec tion and content) Team Status: Active Member Role Status Dates Kellen Linn MD Primary Care Provider Active Team Status: Inactive Member Role Status Dates Kellen Linn MD Primary Care Provide r, Attending Provider Active Start: February 07, 2024 End: February 07, 2024 Goals (unrecognized section and content) Goals may be documented in a n alternate section FOR RECORDS PERTAINING TO PATIENTS WHO ARE OR HAVE BEEN ENROLLED IN A CHEMICAL DEPENDENCY/SUBSTANCEABUSE PROGRAM, SOME INFORMATION MAY BE OMITTED. This clinical summary was aggregated from multiple sources. Caution should be exercised in using it in the provision of clinical care. This summary normalizes information from multiple sources, and as a consequence, information in this document may materially change the coding, format and clinical context of patient data. In addition, data may be omitted in some cases. CLINICAL DECISIONS SHOULD BE BASED ON THE PRIMARY CLINICAL RECORDS. Reading Room [facility]. provides no warranty or guarantee of the accuracy or completeness of information in this document.
[2024-03-02 10:35] VITALS: BP 151/98; PULSE 85; TEMP 36.7; O2SAT 96; BMI 29.5
--- NOTE | 2024-03-02 11:40 | XR_ITS ---
The [address] [address] Patient Name: HEBERT MARTÍNEZ MRN: [id number] date: 1975 Sex: M Assigned Patient Location: ER Current Patient Location: Accession/Order Number: [id number] Exam Date: 03/02/2024 12:05 Report Date: 03/02/2024 13:25 At the request of: RUSS REEDER Procedure: XR hand LT min 3V EXAM: XR hand LT min 3V HISTORY: pain COMPARISON: None. FINDINGS/IMPRESSION: 1. No acute fracture or dislocation. 2. Normal alignment of the joints of the hand and wrist. 3. Subcutaneous edema about the wrist. Electronically authenticated by: JONY PARKER Date: 03/02/2024 13:25
[2024-03-02 12:17] VITALS: PULSE 87; O2SAT 100
--- NOTE | 2024-03-02 16:10 | ED.EXTPRO1 ---
HPI - Extremity Problem General Chief complaint: Extremity Problem, Nontraumatic Stated complaint: LEFT HAND SWELLING Time Seen by Provider: 03/02/24 10:50 Mode of arrival: walk-in History of Present Illness HPI Narrative: The patient is coming to the ER with few days history of left hand mostly index and third finger pain that he does not remember why did it start He denies any trauma or fall Pain is mostly with bending the finger No other complaints Related Data Home Medications ?Medication ?Instructions ?Recorded ?Confirmed omeprazole 20 mg capsule,delayed 20 mg PO Q8H 03/02/24 03/02/24 release Previous Rx's ?Medication ?Instructions ?Recorded ibuprofen 600 mg tablet 600 mg PO Q8H PRN pain #20 tabs 03/02/24 Allergies Allergy/AdvReac Type Severity Reaction Status Date / Time morphine Allergy Severe Agitated Verified 03/02/24 10:34 Penicillins Allergy Severe Hives Verified 03/02/24 10:34 Review of Systems ROS Status of ROS 10 or more systems reviewed and unremarkable except as noted in history and below PFSH PFSH Social History Little interest or pleasure in doing things: not at all Feeling down, depressed, or hopeless: not at all Exam Narrative Exam Narrative: Nurses notes and vital signs reviewed and patient is not hypoxic. Left hand exam: The patient have tenderness upon palpation of the distal phalanx there is no open wound there is no underlying capillary refill abnormality normal capillary fill was observed and the patient does not have any significant edema The patient has full range of movement General: Well-appearing and in no apparent distress. Skin: Warm, dry, no pallor noted. No rash. Head: Normocephalic, atraumatic. Neck: Supple, non-tender. Eye: Pupils are equal, round and EOMI. No scleral icterus. Ears, Nose, Mouth, and Throat: TM are clear, no nasal mucosal hypertrophy. Oral mucosa is moist, no posterior oropharynx erythema, uvula is mid-line Cardiovascular: Regular Rate and Rhythm without murmur, gallop or rub. Respiratory: No accessory muscle use or respiratory distress. Lungs are clear to auscultation, no wheezing, rales or rhonchi Chest Wall: no tenderness Back: No midline thoracic or lumbar vertebral tenderness. No CVA tenderness Musculoskeletal: normal ROM, no calf or popliteal tenderness, no lower extremity edema/swelling GI: Abdomen is soft, non-distended. Normal bowel sounds. No masses appreciated. No tenderness to palpation. No rebound, guarding, or rigidity noted. Neurological: A&O x4. No cranial nerve dysfunction observed. No truncal ataxia. Moves all extremities. Sensation intact. Psychiatric: Cooperative and interactive. Normal mood and affect. Constitutional Vital Signs, click to edit/add: Last Vital Signs Temp 98.0 F 03/02/24 10:35 Pulse 87 03/02/24 12:17 Resp 16 03/02/24 12:17 BP 151/98 H 03/02/24 10:35 Pulse Ox 100 03/02/24 12:17 O2 Del Method Room Air 03/02/24 12:17 Course Vital Signs Vital signs: Vital Signs Temperature 98.0 F 03/02/24 10:35 Pulse Rate 85 03/02/24 10:35 Respiratory Rate 18 03/02/24 10:35 Blood Pressure 151/98 H 03/02/24 10:35 Pulse Oximetry 96 03/02/24 10:35 Temperature 98.0 F 03/02/24 10:35 Pulse Rate 87 03/02/24 12:17 Respiratory Rate 16 03/02/24 12:17 Blood Pressure 151/98 H 03/02/24 10:35 Pulse Oximetry 100 03/02/24 12:17 Oxygen Delivery Method Room Air 03/02/24 12:17 MDM - Extremity (Nontraumatic) MDM Narrative Medical decision making narrative: X-ray of the patient left hand showed no acute pathology his presentation could be secondary to tendinitis or sprain of the finger .he was provided with a finger splint as well as angelito taping of the fingers with ibuprofen course The patient is to follow up with primary care physician in next 2-3 days or to return to the emergency department should any of the signs or symptoms worsen or new symptoms develop. The patient agrees with the following Diagnosis and Treatment plan and the patient will be discharged home. Discharge Plan Discharge Chief Complaint: Extremity Problem, Nontraumatic Clinical Impression: Finger sprain Patient Disposition: Home, Self-Care Time of Disposition Decision: 12:12 Condition: Good Prescriptions / Home Meds: New ibuprofen 600 mg tablet 600 mg PO Q8H PRN (Reason: pain) Qty: 20 0RF No Action omeprazole 20 mg capsule,delayed release(DR/EC) 20 mg PO Q8H Print Language: Somali Instructions: Finger Sprain (ED) Referrals: Kellen Vasquez MD [Primary Care Provider] - 1 week Discharge Date/Time: 03/02/24 12:19
== END 2024-03-02 12:19 | disposition home or self-care (01) ==
PROVIDERS: Emergency Provider Emergency Medicine; PCP Family Medicine
DX: S63.611A Unspecified sprain of left index finger, initial encounter (principal); S63.613A Unspecified sprain of left middle finger, initial encounter; X58.XXXA Exposure to other specified factors, initial encounter
CPT/HCPCS: 29130; 73130; 99283

== ENCOUNTER 2024-10-26 08:56 | Emergency (ER) | payer OTHER, SELFPAY ==
[2024-10-26 09:03] VITALS: BP 120/69; PULSE 91; TEMP 36.8; O2SAT 95; BMI 39.1
--- NOTE | 2024-10-26 09:10 | XR_ITS ---
The [address] [address] Patient Name: HEBERT MARTÍNEZ MRN: [id number] date: 1975 Sex: M Assigned Patient Location: ED.MAIN Current Patient Location: ED.MAIN Accession/Order Number: [id number] Exam Date: 10/26/2024 09:59 Report Date: 10/26/2024 10:00 At the request of: JAH QUINTERO MD Procedure: XR forearm LT 2V LEFT FOREARM - 2 views CLINICAL HISTORY: Atraumatic pain, proximal COMPARISON: None FINDINGS: No fracture fracture-dislocation. No radiopaque foreign body. Soft tissues unremarkable. XR/XR forearm LT 2V IMPRESSION: NO ACUTE OSSEOUS FINDINGS. Impression dictated by: Leo Batista M.D. 10/26/2024 10:00 AM Dictation Location: [place] [address] Electronically authenticated by: [id number] Y Date: 10/26/2024 10:00
--- NOTE | 2024-10-26 09:10 | ED.GENADUL1 ---
HPI HPI - General Adult General Chief complaint: Extremity Injury, Upper Stated complaint: LEFT ARM PAIN Time Seen by Provider: 10/26/24 09:08 Source: patient Mode of arrival: walk-in History of Present Illness HPI narrative: 49-year-old male presents to the emergency department for pain in his left forearm. He points to the proximal aspect and it started yesterday and was not precipitated by any trauma. If he pushes on it in just the right position it seems to hurt. The elbow and wrist are not hurting. 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 Related Data Home Medications ?Medication ?Instructions ?Recorded ?Confirmed omeprazole 20 mg capsule,delayed 20 mg PO Q8H 03/02/24 10/26/24 release flecainide 100 mg tablet mg 10/26/24 Previous Rx's ?Medication ?Instructions ?Recorded ibuprofen 800 mg tablet 800 mg PO Q8H PRN pain #20 tabs 10/26/24 Allergies Allergy/AdvReac Type Severity Reaction Status Date / Time morphine Allergy Severe Agitated Verified 10/26/24 09:02 Penicillins Allergy Severe Hives Verified 10/26/24 09:02 Opioid HPI Opioid Management Most Recent Opioid Data: Last Pain Scale 6 Today, 09:09 Review of Systems ROS Narrative A ten point review of systems is negative except as noted above. PFSH PFSH Social History Little interest or pleasure in doing things: not at all Feeling down, depressed, or hopeless: not at all Exam Narrative Exam Narrative: Nurses note and vital signs reviewed and patient is not hypoxic. General: The patient appears well and in no apparent distress. Patient is resting comfortably on cart. Skin: Warm, dry, no pallor noted. There is no rash noted. Head: Normocephalic, atraumatic Eye: Normal conjunctiva, no drainage Ears, Nose, Mouth, and Throat: oral mucosa is moist. Nares patent. Cardiovascular: Regular Rate and Rhythm Respiratory: Patient is in no distress, no accessory muscle use, lungs are clear to auscultation, no wheezing, rales or rhonchi Back: non-tender, no CVA tenderness bilaterally to percussion. GI: Normal bowel sounds, no tenderness to palpation, no masses appreciated. No rebound, guarding, or rigidity noted. Musculoskeletal: The left arm is examined. There is no erythema or swelling. His ring fits normally. Fingers and wrist have full range of motion as does his elbow. He has an area of tenderness in the proximal forearm just distal to the elbow. Neurological: A&O, normal speech Psychiatric: Cooperative Constitutional Vital Signs, click to edit/add: Last Vital Signs Temp 98.3 F 10/26/24 09:03 Pulse 91 H 10/26/24 09:03 Resp 16 10/26/24 09:03 BP 120/69 10/26/24 09:03 Pulse Ox 95 10/26/24 09:03 O2 Del Method Room Air 10/26/24 09:03 Course Vital Signs Vital signs: Vital Signs Temperature 98.3 F 10/26/24 09:03 Pulse Rate 91 H 10/26/24 09:03 Respiratory Rate 16 10/26/24 09:03 Blood Pressure 120/69 10/26/24 09:03 Pulse Oximetry 95 10/26/24 09:03 Oxygen Delivery Method Room Air 10/26/24 09:03 Temperature 98.3 F 10/26/24 09:03 Pulse Rate 91 H 10/26/24 09:03 Respiratory Rate 16 10/26/24 09:03 Blood Pressure 120/69 10/26/24 09:03 Pulse Oximetry 95 10/26/24 09:03 Oxygen Delivery Method Room Air 10/26/24 09:03 Medical Decision Making MDM Narrative Medical decision making narrative: X-ray my interpretation shows no acute findings. Jose Ramon wrap applied, application checked by me and found to be appropriate, he is neurovascularly intact. My clinical impression is that he has tendinitis. Treatment diagnosis and follow-up were discussed with the patient. Differential Diagnosis Differential Diagnosis: Tendinitis, muscle strain, fracture Imaging Data Left forearm: My impression: No acute findings Discharge Plan Discharge Chief Complaint: Extremity Injury, Upper Clinical Impression: Tendinitis Patient Disposition: Home, Self-Care Time of Disposition Decision: 09:58 Condition: Good Mode of Transportation: Private Vehicle Prescriptions / Home Meds: New ibuprofen 800 mg tablet 800 mg PO Q8H PRN (Reason: pain) Qty: 20 0RF No Action omeprazole 20 mg capsule,delayed release(DR/EC) 20 mg PO Q8H flecainide 100 mg tablet Print Language: Occitan Instructions: Tendinitis (ED) Referrals: Kellen Vasquez MD [Primary Care Provider, Family Practice] - 1 week
--- OUTSIDE RECORDS SUMMARY | 2024-10-26 09:16 | XMS_ITS | Clinical Summary ---
Author Organization [facility] Address [address] [place] [address] Care Team Providers Care Alteration Tailor Apprentice Name Role Phone Unavailable Primary Care Provider Unavailabl e Social History Tobacco Use Types Packs/Day Years Used Date Smoking Tobacco: Never Assessed Sex and Gender Information Value Date Recorded Sex Assigned at Not on file Legal Sex Male 5:09 PM EST Gender Identity Not on file Sexual Orientation Not on file Plan of Treatment Not on file
--- OUTSIDE RECORDS SUMMARY | 2024-10-26 09:16 | XMS_ITS | Encounter Summary ---
Author Organization [facility] Address [address] [place] [address] Care Team Providers Care Family Independence Case Manager Name Role Phone Kellen Vasquez MD Primary Care Provider [phone] Reason for Visit * Reason Comments Med Change Request Encounter Details Date Type Department Care Team (Late Contact Info) Description 07/22/[address] [address] Rudi Earl MD [address] [place] [address] HTN (hypertension) Social History Tobacco Use Types Packs/Day Years Used Date Smoking Tobacco: Former Cigarettes 2015 Smokeless Tobacco: Never Alcohol Use Standard Drinks/Week Comments Not Currently 0 (1 standard drink = 0.6 oz pur e alcohol) [place] Safety [facility] [place] Answer Date Rec orded Fear of Current or Ex-Partner Not on file Emotionally Abused Not on file 06/21/2023 Physically Abused Not on file 06/21/2023 Sexually Abused Not on file 06/21/2023 Physically or Sexually Abused Not on file Sex and Gender Information Value Date Recorded Sex Assigned at Not on file Legal Sex Male 12:02 AM EDT Gender Identity Not on file Sexual Orientation Not on file documented as of this encounter Plan of Treatment Upcoming Encounters Date Type Department Care Team (Late Contact Info) Description 12/09/2024 3:30 PM EDT Office Visit [facility] [address] [place] [address] Rudi Earl MD [address] [facility] [place] [address] documented as of this encounter Visit Diagnoses Diagnosis HTN (hypertension) Unspecified essential hypertension documented in this encounter Care Teams Family Independence Case Manager Relationship Specialty Start Date End Date Kellen Vasquez MD [facility] #A PCP - General 06/28/22 documented as of this encounter
--- OUTSIDE RECORDS SUMMARY | 2024-10-26 09:16 | XMS_ITS | Referral Summary ---
Author Organization [facility] Address [address] [place] [address] Care Team Providers Care Postulant Name Role Phone Kellen Vasquez MD Primary Care Provider [phone] Allergies Active Allergy Reactions Criticality Noted Date Comments Penicillins Hives Low 06/28/2022 Medications omeprazole (PriLOSEC) [address] capsule Take 20 mg by mouth in the morning. Active meloxicam (Mobic) 7.5 mg tablet 7.5 mg if needed. 4 Active tiZANidine (Zanaflex) 4 mg tablet if needed. 4 Active apixaban (Eliquis) 5 mg tabletIndication s:PAF (paroxysmal atrial fibrillation) (CMS/HCC) Take 1 tablet (5 mg) by mouth in the morning and at bedtime. 60 tablet 11 4 Active Additional Information Patient not taking.Reported on 06/24/2024 metoprolol succinate XL (Toprol-XL) 50 mg 24 hr tabletIndication s:HTN (hypertension) Take 1 tablet (50 mg) by mouth in the morning. 90 tablet 3 4 Active Additional Information Patient not taking.Reported on 06/24/2024 famotidine (Pepcid) 20 mg tabletIndication s:Paroxysmal atrial fibrillation (CMS/HCC) Take 1 tablet (20 mg) by mouth in the morning and at bedtime. 60 tablet 4 Active flecainide (Tambocor) 100 mg tabletIndication s:Persistent atrial fibrillation (CMS/HCC) Take 1 tablet (100 mg) by mouth every 12 (twelve) hours. 180 tablet 5 Active Active Problems Problem Noted Date Diagnosed Date GERD (gastroesophageal reflux disease) 4 Intermittent palpitations 05/10/2021 Assessment & Plan (11/21/2023 3:55 PM EDT): Currently stable Continue toprol and flecanide Paroxysmal atrial fibrillation 05/10/2021 Assessment & Plan (11/21/2023 3:55 PM EDT): [id number]= 0 -s/p recent afib ablation this past May- Currently remains on flecanide, and toprol with eliquis anticoagulation- will have pt f/U with Dr Earl in 3 months to determine if he needs to remain on eliquis and consider stopping flecanide. Assessment & Plan (06/28/2022 1:14 PM EST): - [id number] 0 continue aspirin -Continue flecainide 100 mg twice daily and Toprol-XL 25 mg daily -We will do event monitor to assess for any A-fib burden given cardia mobile mentioned A-fib -Patient would like to follow up with Dr. Earl to discuss ablation if he does have A-fib burden Obstructive sleep apnea syndrome 12/03/2019 Assessment & Plan (06/28/2022 1:14 PM EST): - Continue compliance with CPAP Social History Tobacco Use Types Packs/Day Years Used Date Smoking Tobacco: Former Cigarettes 1 988 - 2015 Smokeless Tobacco: Never Tobacco Cessation:Counseling Given: Not Answered Alcohol Use Standard Drinks/Week Comments Not Currently 0 (1 standard drink = 0.6 oz pur e alcohol) [place] Safety [facility] [place] Answer Date Rec orded [...] on file Sexual Orientation Not on file Last Filed Vital Signs Vital Sign Reading Time Taken Comments Blood Pressure 114/80 06/24/2024 4:00 PM EST Pulse 98 06/24/2024 4:00 PM EST Temperature 36.4 C (97.5 F) 09/26/2023 11:25 AM EDT Respiratory Rate 16 09/26/2023 3:30 PM EDT Oxygen Saturation 96% 06/24/2024 4:00 PM EST Inhaled Oxygen Concentration - - Weight 90.7 kg (200 lb) 06/24/2024 4:00 PM EST Height 172.7 cm (5' 8 ) 06/24/2024 4:00 PM EST Body Mass Index 30.41 06/24/2024 4:00 PM EST Plan of Treatment Upcoming Encounters Date Type Department Care Team (Late st Contact Info) Description 12/09/2024 3:30 PM EDT Office Visit [facility] [address] [place] [id number] Rudi Earl MD [address] [place] [address] Insurance [employer] Advance Directives * Full Code (Latest Code Status on File) Date Activated Date Inactivated Comments 09/26/2023 11:32 AM 09/26/2023 5:40 PM Care Teams Postulant Relationship Specialty Start Date End Date Kellen Vasquez MD [address] [facility] #A PCP - General 06/28/22
--- OUTSIDE RECORDS SUMMARY | 2024-10-26 09:16 | XMS_ITS | Clinical Summary ---
Author Organization [facility] Address [address] [place] [address] Care Team Providers Care Salon/Spa Manager Name Role Phone Kellen Vasquez MD Primary Care Provider [phone] Allergies Active Allergy Reactions Criticality Noted Date [...] Assessment & Plan (11/21/2023 3:55 PM EDT): [id number]= 0 -s/p recent afib ablation this past May- Currently remains on flecanide, and toprol with eliquis anticoagulation- will have pt f/U with Dr Earl in 3 months to determine if he needs to remain on eliquis and consider stopping flecanide. Assessment & Plan (06/28/2022 1:14 PM EST): - [id number] 0 continue aspirin -Continue flecainide 100 mg [...] PM EST): - Continue compliance with CPAP Family History Medical History Relation Name Comments Bradycardia Mother cardiac pacemaker in situ Mother Relation Name Status Comments Mother Social History Tobacco Use Types Packs/Day Years Used Date Smoking Tobacco: Former Cigarettes 1 8 - 2015 Smokeless Tobacco: Never Tobacco Cessation:Counseling [...] Description 12/09/2024 3:30 PM EDT Office Visit [facility] [address] [place] [address] Rudi Earl MD [address] [place] [address] Health Maintenance Due Date Last Done Comments CT Colonography 1975 Colonoscopy 1975 Colorectal Cancer Screening 1975 FIT-DNA 1975 FIT 1975 FOBT 1975 Sigmoidoscopy 1975 Depression Screening 1987 Hepatitis B Vaccines (1 of 3 - 19+ 3-dose series) 1994 Adult Tetanus 1997 COVID-19 Vaccine (2023-2 5 season) 2023 08/19/2020, 07/29/2020 Influenza Vaccine (Season Ended) 2024 Zoster Vaccines (1 of 2) 2025 HIB Vaccines Aged Out No longer eligi ble based on patient's age to complete this topic HPV Vaccines Aged Out No longer eligi ble based on patient's age to complete this topic IPV Vaccines Aged Out No longer eligi ble based on patient's age to complete this topic Meningococcal B Vaccine Aged Out No l onger eligible based on patient's age to complete this topic Meningococcal Vaccine Aged Out No velia tiffanie eligible based on patient's age to complete this topic Pneumococcal Vaccine: Pediatrics (0 to 5 Years) and At-Risk Patients (6 to 64 Years) Aged Out No longer eligible b ased on patient's age to complete this topic Rotavirus Vaccines Aged Out No longer eligible based on patient's age to complete this topic Insurance [employer] Advance Directives * Full Code (Latest Code Status on File) Date Activated Date Inactivated Comments 09/26/2023 11:32 AM 09/26/2023 5:40 PM Care Teams Salon/Spa Manager Relationship Specialty [place] [address] [place] [address] #A PCP - General 06/28/22
--- OUTSIDE RECORDS SUMMARY | 2024-10-26 09:17 | XMS_ITS | CCD ---
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 0.3-1.2 [facility] Comment on above: Performed By: #### C BC, CMP #### [place] [address] [place] Calcium [Mass/Vol] 9.3 mg/dL Normal 8.2-10.2 [facility] Comment on above: Performed By: #### C BC, CMP #### [address] Chloride [Moles/Vol] 107 mmol/L Normal 95-114 [facility] Comment on above: Performed By: #### C BC, CMP #### [facility] [address] CO2 [Moles/Vol] 23.1 mmol/L Normal 22.0-30.0 [facility] Comment on above: Performed By: #### C BC, CMP #### [facility] [address] Creatinine [Mass/Vol] 0.84 mg/dL Normal 0.64-1.27 [facility] Comment on above: Performed By: #### C BC, CMP #### [address] Estimated GFR ( [place] > 60 Normal [facility] Comment on above: Result Comment: GFR estimated reference range: According to KDOQI guidelines, <60 ml/min/1.73m2 is sufficient to diagnose a patient with chronic kidney disease. Performed By: #### C BC, CMP #### [address] Estimated GFR (Non- Am > 60 Normal [facility] Comment on above: Performed By: #### C BC, CMP #### [place] [address] [place] Globulin (S) [Mass/Vol] 2.7 g/dL Normal [facility] Comment on above: Performed By: #### C BC, CMP #### [address] Glucose [Mass/Vol] 92 mg/dL Normal 70-100 [facility] Comment on above: Result Comment: [place] Glucose Reference Range is dependent on time and content of last meal. Glucose of more than 200 mg/dL in a nonstressed, ambulatory subject supports the diagnosis of Diabetes Mellitus. ADA recommended reference range Performed By: #### C BC, CMP #### [address] Potassium [Moles/Vol] 4.0 mmol/L Normal 3.5-5.1 [facility] Comment on above: Performed By: #### C BC, CMP #### [place] [address] [place] Protein [Mass/Vol] 6.3 g/dL Normal 6.1-7.9 [facility] Comment on above: Performed By: #### C BC, CMP #### [facility] [address] Sodium [Moles/Vol] 140 mmol/L Normal 136-146 [facility] Comment on above: Performed By: #### C BC, CMP #### [facility] [address] Urea nitrogen [Mass/Vol] 9 mg/dL Normal 9-23 [facility] Comment on above: Performed By: #### C BC, CMP #### [facility] [address] ECG 12 lead ECGon 03-23-2021 ECG 12 lead ECG [facility] Main Wing [address] [place] [address] Electrocardiograph Report Signed Patient: Hebert Martínez MR#: [id number] [birth year] : 1975 Acct:[id number] Age/Sex: 46 / M ADM Date: 03/23/21 Loc: Room: Type: [facility] Attending Dr: Franco Pan MD Ordering Provider: [...] By: MUS Signed By Franco Cortes MD 923 Normal [facility] MR shoulder LT wo conon 10-0 MR shoulder LT wo con [facility] Main Wing [address] [place] [id number] MRI Report Signed Patient: Hebert Martínez MR#: [id number] 97 : 1975 Acct:[id number] Age/Sex: 45 / M ADM Date: 02/04/21 Loc: [facility] Room: Type: [facility] Attending Dr: Franco Pan MD Ordering Provider: [...] Bj Newsome M.D.02/04/2021 4:07 PM Dictation Location: [place] [address] Transcribed By: [facility] 02/04/21 1607 Dictated By: Bj Newsome DO 02/04/21 1603 Signed By: 02/04/21 1607 Normal [facility] XR shoulder LT min 2V*on XR shoulder LT min 2V* [facility] Main [address] [address] XRay Report Signed Patient: Hebert Martínez MR#: [id number] [birth year] : 1975 Acct:[id number] Age/Sex: 45 / M ADM Date: 09/09/20 Loc: [facility] Room: Type: [facility] Attending Dr: Franco Pan MD Ordering Provider: Franco Pan MD Date of Service: 09/09/20 XR/XR shoulder LT min 2V*: Strain of muscle(s) and tendon(s) of the rotator cuff of lef Copies to: Franco Pan MD 2 views plain filmLEFT shoulder HISTORY:LEFT shoulder arthroscopy with subacromial decompression COMPARISON:None Postoperative changes of the acromioclavicular joint. [place] screw in the proximal humeral shaft. The bony structures intact. Adequate bony alignment. No soft tissue abnormality. XR/XR shoulder LT min 2V* IMPRESSION:Uncomplicated postoperative changes. Impression dictated by: Bj Newsome M.D.09/09/2020 12:46 PM Dictation Location: [place] [address] Transcribed By: [facility] 09/09/20 1246 Dictated By: Bj Newsome DO 09/09/20 1244 Signed By: 09/09/20 1246 Normal [facility] Consent for COVID Vaccineon 09-04-2020 SARS-CoV-2 (COVID-19) RNA LAMIN+probe Ql (Unsp spec) [id number]:127 Normal [facility] SARS-CoV-2 (COVID-19) RNA LAMIN+probe Ql (Unsp spec) Negative Normal Negative [facility] Comment on above: Order Comment: Healt hcare Worker?: N Result Comment: Test ing for SARS-CoV-2 by RT-PCR This test was developed and its performance characteristics determined by [employer] ([employer]) and validated at the [facility]. This test has not been FDA cleared [...] is terminated or revoked sooner. PERFORMED BY: [place] [id number] PATHOLOGIST MANAGER TRADE TIARA BARNARD M.D. Performed By: #### C OVID-19 [facility] #### [facility] [address] [place], [place] [id number] [facility] COVID-19 Positive/Negativeon 08-30-2020 SARS-CoV-2 (COVID-19) N gene LAMIN+probe Ql (Resp) Negative Negative [facility] Comment on above: Testing for SARS-CoV -2 by RT-PCRThis test was developed and its performance characteristics determined by [employer] ([employer]) and validated at the [facility]. This test has not been FDA cleared [...] (COVID-19) RNA LAMIN+probe Ql (Unsp spec) N/A [facility] Albumin [Mass/volume] in Ser um or Plasmaon 08-18-2020 Albumin [Mass/Vol] 3.8 g/dL 3.2-5.5 [facility] Basophils Auto (Bld) [#/Vol] on 08-18-2020 Basophils (Bld) [#/Vol] 0.1 10*3/uL 0.0-0.2 [facility] Basophils/100 WBC Auto (Bld) on 08-18-2020 Basophils/100 WBC (Bld) 0.7 % [facility] Blood hemoglobin measurement (mass/volume)on 08-18-2020 Hemoglobin (Bld) [Mass/Vol] 16.5 g/dL 13.0-17.0 [facility] Blood leukocytes automated c ount (number/volume)on 08-18-2020 WBC (Bld) [#/Vol] 8.0 10*3/uL 4.5-11.0 [facility] Complete Blood Count Auto Di ffon 08-18-2020 Basophils (Bld) [#/Vol] 0.1 10*3/uL Normal 0.0-0.2 [facility] Comment on above: Result Comment: PERF ORMED BY: [place] [address] PATHOLOGIST MANAGER TRADE TIARA BARNARD M.D. Performed By: #### C BC, CMP #### [address] Basophils/100 WBC (Bld) 0.7 % Normal . [facility] Comment on above: Performed By: #### C BC, CMP #### [facility] [address] Eosinophils (Bld) [#/Vol] 0.2 10*3/uL Normal 0.0-0.45 [facility] Comment on above: Performed By: #### C BC, CMP #### [facility] [address] [place] [address] [place] Eosinophils/100 WBC (Bld) 2.1 % Normal . [facility] Comment on above: Performed By: #### C BC, CMP #### [facility] [address] Erythrocyte distribution width (RBC) [Ratio] 13.7 % Normal 12.0-14.8 [facility] Comment on above: Performed By: #### C BC, CMP #### [facility] [address] Hematocrit (Bld) [Volume fraction] 47.9 % Normal 38.8-50.0 [facility] Comment on above: Performed By: #### C BC, CMP #### [facility] [address] Hemoglobin (Bld) [Mass/Vol] 16.5 g/dL Normal 13.0-17.0 [facility] Comment on above: Performed By: #### C BC, CMP #### [facility] [address] Lymphocytes (Bld) [#/Vol] 1.8 10*3/uL Normal 1.00-4.8 [facility] Comment on above: Performed By: #### C BC, CMP #### [facility] [address] [place] [address] [place] Lymphocytes/100 WBC (Bld) 21.9 % Normal . [facility] Comment on above: Performed By: #### C BC, CMP #### [facility] [address] MCH (RBC) [Entitic mass] 31.2 pg Normal 27.5-35.2 [facility] Comment on above: Performed By: #### C BC, CMP #### [facility] [address] [place] [address] [place] MCV (RBC) [Entitic vol] 90.7 fL Normal 83.5-101 [facility] Comment on above: Performed By: #### C BC, CMP #### [facility] [address] [place] [id number] [facility] Mean Corpuscular HGB Conc 34.4 g/dL Normal 32.5-35.6 [facility] Comment on above: Performed By: #### C BC, CMP #### [facility] [address] [place] [id number] [place] Monocytes (Bld) [#/Vol] 0.8 10*3/uL Normal 0.0-0.8 [facility] Comment on above: Performed By: #### C BC, CMP #### [facility] [address] [place] [id number] [place] Monocytes/100 WBC (Bld) 9.5 % Normal . [facility] Comment on above: Performed By: #### C BC, CMP #### [facility] [address] [place] [address] [place] Neutrophils (Bld) [#/Vol] 5.3 10*3/uL Normal 1.8-7.7 [facility] Comment on above: Performed By: #### C BC, CMP #### [facility] [address] [place] [address] [place] Neutrophils/100 WBC (Bld) 65.8 % Normal . [facility] Comment on above: Performed By: #### C BC, CMP #### [facility] [address] [place] [address] [place] Nucleated RBC/100 WBC (Bld) [Ratio] 0.0 % Normal 0-0.5 [facility] Comment on above: Performed By: #### C BC, CMP #### [facility] [address] [place] [address] [place] Platelet mean volume (Bld) [Entitic vol] 7.2 fL Normal 6.6-10.1 [facility] Comment on above: Performed By: #### C BC, CMP #### [facility] [address] [place] [address] [place] Platelets (Bld) [#/Vol] 229 10*3/uL Normal 150-450 [facility] Comment on above: Performed By: #### C BC, CMP #### [facility] [address] [place] [id number] [place] RBC (Bld) [#/Vol] 5.28 10*6/uL Normal 3.90-5.60 [facility] Comment on above: Performed By: #### C BC, CMP #### [address] WBC (Bld) [#/Vol] 8.0 10*3/uL Normal 4.5-11.0 [facility] Comment on above: Performed By: #### C BC, CMP #### [address] Comprehensive Metabolic Pane velia 08-18-2020 Albumin [Mass/Vol] 3.8 g/dL Normal 3.2-5.5 [facility] Comment on above: Performed By: #### C BC, CMP #### [address] Albumin/Globulin [Mass ratio] 1.4 {ratio} Normal [facility] Comment on above: Performed By: #### C BC, CMP #### [address] ALP [Catalytic activity/Vol] 48 U/L Normal 32-92 [facility] Comment on above: Result Comment: PERF ORMED BY: [place] [address] PATHOLOGIST MANAGER TRADE TIARA BARNARD M.D. Performed By: #### C BC, CMP #### [address] ALT [Catalytic activity/Vol] 16 U/L Normal 10-60 [facility] Comment on above: Performed By: #### C BC, CMP #### [address] AST [Catalytic activity/Vol] 15 U/L Normal 10-42 [facility] Comment on above: Performed By: #### C BC, CMP #### [address] Bilirubin [Mass/Vol] 0.8 mg/dL Normal 0.3-1.2 [facility] Comment on above: Performed By: #### C BC, CMP #### [address] Calcium [Mass/Vol] 9.3 mg/dL Normal 8.2-10.2 [facility] Comment on above: Performed By: #### C BC, CMP #### [address] Chloride [Moles/Vol] 108 mmol/L Normal 95-114 [facility] Comment on above: Performed By: #### C BC, CMP #### [address] CO2 [Moles/Vol] 23.4 mmol/L Normal 22.0-30.0 [facility] Comment on above: Performed By: #### C BC, CMP #### [address] Creatinine [Mass/Vol] 0.86 mg/dL Normal 0.64-1.27 [facility] Comment on above: Performed By: #### C BC, CMP #### [address] Estimated GFR ( [place] > 60 Normal [facility] Comment on above: Result Comment: GFR estimated reference range: According to KDOQI guidelines, <60 ml/min/1.73m2 is sufficient to diagnose a patient with chronic kidney disease. Performed By: #### C BC, CMP #### [address] Estimated GFR (Non- Am > 60 Normal [facility] Comment on above: Performed By: #### C BC, CMP #### [address] Globulin (S) [Mass/Vol] 2.7 g/dL Normal [facility] Comment on above: Performed By: #### C BC, CMP #### [address] Glucose [Mass/Vol] 99 mg/dL Normal 70-100 [facility] Comment on above: Result Comment: [place] Glucose Reference Range is dependent on time and content of last meal. Glucose of more than 200 mg/dL in a nonstressed, ambulatory subject supports the diagnosis of Diabetes Mellitus. ADA recommended reference range Performed By: #### C BC, CMP #### [facility] [address] [place] [id number] [facility] Potassium [Moles/Vol] 4.4 mmol/L Normal 3.5-5.1 [facility] Comment on above: Performed By: #### C BC, CMP #### [facility] [address] [place] [id number] [facility] Protein [Mass/Vol] 6.5 g/dL Normal 6.1-7.9 [facility] Comment on above: Performed By: #### C BC, CMP #### [facility] [address] Sodium [Moles/Vol] 140 mmol/L Normal 136-146 [facility] Comment on above: Performed By: #### C BC, CMP #### [facility] [address] [place] [id number] [facility] Urea nitrogen [Mass/Vol] 13 mg/dL Normal 9-23 [facility] Comment on above: Performed By: #### C BC, CMP #### [facility] [address] Creatinine and Glomerular fi ltration rate.predicted panel (S/P/Bld)on 08-18-2020 Creatinine [Mass/Vol] 0.86 mg/dL 0.64-1.27 [facility] ECG 12 lead ECGon 08-18-2020 ECG 12 lead ECG [facility] Main Wing [address] [place] [address] Electrocardiograph Report Signed Patient: Hebert Martínez MR#: [id number] 97 : 1975 Acct:[id number] Age/Sex: 45 / M ADM Date: 08/18/20 Loc: Room: Type: [facility] Attending Dr: Franco Pan MD Ordering Provider: [...] Electronically Signed By:NELSON DIEHL DO Transcribed By: CUONG Dictated By: Nelson Diehl DO 08/18/20 0848 Signed By: 08/18/20 1241 Normal [facility] Eosinophils Auto (Bld) [#/Vo l]on 08-18-2020 Eosinophils (Bld) [#/Vol] 0.2 10*3/uL 0.0-0.45 [facility] Eosinophils/100 WBC Auto (Bl d)on 08-18-2020 Eosinophils/100 WBC (Bld) 2.1 % [facility] Erythrocyte distribution wid th Auto (RBC) [Ratio]on 08-18-2020 Erythrocyte distribution width (RBC) [Ratio] 13.7 % 12.0-14.8 [facility] Estimated glomerular filtrat ion rate (GFR) non- Americanon 08-18-2020 GFR/1.73 sq M.predicted among non-blacks MDRD (S/P/Bld) [Vol rate/Area] > 60 mL/Min [facility] Globulin Calc (S) [Mass/Vol] on 08-18-2020 Globulin (S) [Mass/Vol] 2.7 g/dL [facility] Hematocrit Auto (Bld) [Volum e fraction]on 08-18-2020 Hematocrit (Bld) [Volume fraction] 47.9 % 38.8-50.0 [facility] Laboratory - Hematology and Cell countson 08-18-2020 Nucleated RBC/100 WBC (Bld) [Ratio] 0.0 % 0-0.5 [facility] Lymphocytes Auto (Bld) [#/Vo l]on 08-18-2020 Lymphocytes (Bld) [#/Vol] 1.8 10*3/uL 1.00-4.8 [facility] Lymphocytes/100 WBC Auto (Bl d)on 08-18-2020 Lymphocytes/100 WBC (Bld) 21.9 % [facility] MCH Auto (RBC) [Entitic mass ]on 08-18-2020 MCH (RBC) [Entitic mass] 31.2 pg 27.5-35.2 [facility] MCHC Auto (RBC) [Mass/Vol]on 08-18-2020 MCHC (RBC) [Mass/Vol] 34.4 g/dL 32.5-35.6 [facility] MCV Auto (RBC) [Entitic vol] on 08-18-2020 MCV (RBC) [Entitic vol] 90.7 fL 83.5-101 [facility] Monocytes Auto (Bld) [#/Vol] on 08-18-2020 Monocytes (Bld) [#/Vol] 0.8 10*3/uL 0.0-0.8 [facility] Monocytes/100 WBC Auto (Bld) on 08-18-2020 Monocytes/100 WBC (Bld) 9.5 % [facility] Neutrophils Auto (Bld) [#/Vo l]on 08-18-2020 Neutrophils (Bld) [#/Vol] 5.3 10*3/uL 1.8-7.7 [facility] Neutrophils/100 WBC Auto (Bl d)on 08-18-2020 Neutrophils/100 WBC (Bld) 65.8 % [facility] No Panel Informationon 08-18 Estimated GFR () > 60 mL/Min [facility] Comment on above: GFR estimated refere nce range: According to KDOQI guidelines, <60 ml/min/1.73m2 is sufficient to diagnose a patient with chronic kidney disease. Pharmacy Creatinine Clearance (Chem N/A [facility] Platelet mean volume Auto (B ld) [Entitic vol]on 08-18-2020 Platelet mean volume (Bld) [Entitic vol] 7.2 fL 6.6-10.1 [facility] Platelets Auto (Bld) [#/Vol] on 08-18-2020 Platelets (Bld) [#/Vol] 229 10*3/uL 150-450 [facility] Protein [Mass/volume] in Ser um or Plasmaon 08-18-2020 Protein [Mass/Vol] 6.5 g/dL 6.1-7.9 [facility] RBC Auto (Bld) [#/Vol]on RBC (Bld) [#/Vol] 5.28 10*6/uL 3.90-5.60 [facility] Serum or plasma alanine hameed otransferase measurement without P-5'-P (enzymatic activion 08-18-2020 ALT No additional P-5'-P [Catalytic activity/Vol] 16 U/L 10-60 [facility] Serum or plasma albumin/glob ulin mass ratioon 08-18-2020 Albumin/Globulin [Mass ratio] 1.4 {ratio} [facility] Serum or plasma alkaline gavin sphatase measurement (enzymatic activity/volume)on 08-18-2020 ALP [Catalytic activity/Vol] 48 U/L 32-92 [facility] Serum or plasma aspartate am inotransferase measurement (enzymatic activity/volume)on 08-18-2020 AST [Catalytic activity/Vol] 15 U/L 10-42 [facility] Serum or plasma calcium cecilio urement (mass/volume)on 08-18-2020 Calcium [Mass/Vol] 9.3 mg/dL 8.2-10.2 [facility] Serum or plasma chloride david surement (moles/volume)on 08-18-2020 Chloride [Moles/Vol] 108 mmol/L 95-114 [facility] Serum or plasma glucose cecilio urement (mass/volume)on 08-18-2020 Glucose [Mass/Vol] 99 mg/dL 70-100 [facility] Comment on above: ADA recommended refe rence rangeRandom Glucose Reference Range is dependent on time and content of last meal. Glucose of more than 200 mg/dL in a nonstressed, ambulatory subject supports the diagnosis of Diabetes Mellitus. Serum or plasma potassium me asurement (moles/volume)on 08-18-2020 Potassium [Moles/Vol] 4.4 mmol/L 3.5-5.1 [facility] Serum or plasma sodium measu rement (moles/volume)on 08-18-2020 Sodium [Moles/Vol] 140 mmol/L 136-146 [facility] Serum or plasma total biliru bin measurement (mass/volume)on 08-18-2020 Bilirubin [Mass/Vol] 0.8 mg/dL 0.3-1.2 [facility] Serum or plasma total carbon dioxide measurement (moles/volume)on 08-18-2020 CO2 [Moles/Vol] 23.4 mmol/L 22.0-30.0 [facility] Serum or plasma urea nitroge n measurement (mass/volume)on 08-18-2020 Urea nitrogen [Mass/Vol] 13 mg/dL 9- [facility] Consent for COVID Vaccineon 08-13-2020 SARS-CoV-2 (COVID-19) RNA LAMIN+probe Ql (Unsp spec) [id number]:127 Normal [facility] Consent for COVID Vaccineon 08-11-2020 SARS-CoV-2 (COVID-19) RNA LAMIN+probe Ql (Unsp spec) [id number]:127 Normal [facility] Coding Summary.on 08-05-2020 Coding Summary. CODING DATE: 021 [facility] STATUS: PAYOR: [employer] DESCRIPTION [...] Clark Date Saved: 08/05/2020 11:25 am Normal [facility] BASIC METABOLIC PANELon 12-29 Calcium mass conc 9.4 mg/dL Normal 8.6-10.3 [facility] Comment on above: Order Comment: No: D o not add to previous draw Performed By: #### 2 4761, 60053 ####[place] [id number] [address], [facility] Chloride molar conc 105 mmol/L Normal 98-107 [facility] Comment on above: Order Comment: No: D o not add to previous draw Performed By: #### 2 5532, 22996 ####[facility] [place] [address], [facility] CO2 molar conc 21 mmol/L Normal 21-31 [facility] Comment on above: Order Comment: No: D o not add to previous draw Performed By: #### 2 5532, 47404 ####[facility] [place] [address], [facility] Creatinine mass conc 0.96 mg/dL Normal 0.70-1.30 [facility] Comment on above: Order Comment: No: D o not add to previous draw Performed By: #### 2 3832, 26345 ####[facility] [place] [address], [facility] GFR/1.73 sq M predicted among blacks MDRD vol rate/area (S/P/Bld) mL/min/{1.73_m2} Normal >60 [facility] Comment on above: Order Comment: No: D o not add to previous draw Performed By: #### 2 2632, 20134 ####[facility] [facility] [place] [address], [facility] GFR/1.73 sq M predicted among non-blacks MDRD vol rate/area (S/P/Bld) mL/min/{1.73_m2} Normal >60 [facility] Comment on above: Order Comment: No: D o not add to previous draw Performed By: #### 2 9032, 33502 ####[facility] [place] [address], [facility] Glucose mass conc 94 mg/dL Normal 70-100 [facility] Comment on above: Order Comment: No: D o not add to previous draw Performed By: #### 2 8432, 27068 ####[facility] [place] [address], [place] Potassium molar conc 3.8 mmol/L Normal 3.5-5.1 [facility] Comment on above: Order Comment: No: D o not add to previous draw Performed By: #### 2 8932, 91563 ####[facility] [place] [address], [facility] Sodium molar conc 136 mmol/L Normal 136-145 [facility] Comment on above: Order Comment: No: D o not add to previous draw Performed By: #### 2 7232, 75582 ####[facility] Urea nitrogen mass conc 18 mg/dL Normal 7-25 [facility] Comment on above: Order Comment: No: D o not add to previous draw Performed By: #### 2 2032, 46075 ####[facility] [facility] CBC COMPLETE BLOOD COUNTon 0 - Erythrocyte distribution width Auto Ratio (RBC) 12.3 % Normal 11.5-15.0 [facility] Comment on above: Order Comment: No: D o not add to previous draw Performed By: #### 2 7399, 44612 ####[facility] Hematocrit Auto Volume Fraction (Bld) 45.6 % Normal 39.0-50.0 [facility] Comment on above: Order Comment: No: D o not add to previous draw Performed By: #### 2 4202, 31658 ####[facility] [place] [address], [facility] Hemoglobin mass conc (Bld) 16.2 g/dL Normal 13.0-17.0 [facility] Comment on above: Order Comment: No: D o not add to previous draw Performed By: #### 2 5010, 00516 ####[facility] [place] [address], [facility] MCH Auto Entitic mass (RBC) 31.3 pg Normal 27.0-33.0 [facility] Comment on above: Order Comment: No: D o not add to previous draw Performed By: #### 2 2732, 96585 ####[facility] MCHC Auto mass conc (RBC) 35.5 g/dL High 32.0-35.0 [facility] Comment on above: Order Comment: No: D o not add to previous draw Performed By: #### 2 5632, 48398 ####[facility] MCV Auto Entitic volume (RBC) 88.2 fL Normal 82.0-98.0 [facility] Comment on above: Order Comment: No: D o not add to previous draw Performed By: #### 2 5632, 81731 ####[facility] Nucleated RBC/100 WBC Ratio (Bld) 0 % Normal 0-0 [facility] Comment on above: Order Comment: No: D o not add to previous draw Performed By: #### 2 3832, 19552 ####[facility] PLAT CNT 210 10*3/uL Normal 150-400 [facility] Comment on above: Order Comment: No: D o not add to previous draw Performed By: #### 2 5232, 57129 ####[facility] RBC Auto #/vol (Bld) 5.17 10*6/uL Normal 4.20-5.70 [facility] Comment on above: Order Comment: No: D o not add to previous draw Performed By: #### 2 8232, 56956 ####[facility] WBC Auto #/vol (Bld) 8.34 10*3/uL Normal 4.00-10.60 [facility] Comment on above: Order Comment: No: D o not add to previous draw Performed By: #### 2 5532, 09345 ####[address] Cardiovascular Lab Reporton 01-11-2018 Cardiovascular Lab Report [facility] Patient Name: Hebert Martínez [facility] #: [id number] Physician: Honey Grewal MD Service Date: 01/10/2018Department of Birthdate: 1975Medicine Room #: 3AB [id number] ofCardiologyAdult CardiovascularServices[address] [address]Qhkmp Fax Cardiovascular Laboratory ReportPROCEDURE: Transesophageal echocardiogram and cardioversion.INDICATION: Atrial fibrillation.ATTENDING DOCTOR: Dr. Grewal.FELLOW DOCTOR: Yemi Hurtado M.D.PROCEDURE IN DETAIL: An informed consent was obtained from the patientafter explaining indication, risks, benefits, and alternatives. Thepatient understood and agreed and signed the consent form. The patient wasbrought to the biological lab technician. ALEXANDRO was performed under conscious sedation. Thepatient [...] for the entire procedure. Date Dict: 01/10/2018/01:58 P/Yemi Bryant MDDate Trans: 01/11/2018 02:24 A/JackiN_JN:[id number]: Puneet Quispe M.D. [address] [place] [address] Normal [facility] HEMOGLOBIN A1Con 01-11-2018 Glucose mass conc 100 mg/dL Normal 70-126 [facility] Comment on above: Order Comment: No: D o not add to previous draw Performed By: #### 5 6101, 25293 ####[facility] Hemoglobin A1c/Hemoglobin.to salvador mass fraction (Bld) 5.1 % Normal 4.0-6.0 [facility] Comment on above: Order Comment: No: D o not add to previous draw Performed By: #### 5 6101, 73534 ####[facility] UFH HEPARIN ASSAYon 01-12-20 18 UNFRACTIONATED HEPARIN 0.50 IU/mL Normal 0.30-0.70 [facility] Comment on above: Result Comment: Khadijah roxaban and Apixaban will interfere with the anti Xa assay used tomonitor UFH and LMWH. Performed By: #### 2 5532, 07270 ####[facility] UFH HEPARIN ASSAYon 01-11-20 18 UNFRACTIONATED HEPARIN 0.51 IU/mL Normal 0.30-0.70 [facility] Comment on above: Result Comment: Khadijah roxaban and Apixaban will interfere with the anti Xa assay used tomonitor UFH and LMWH. Performed By: #### 2 5532, 92722 ####[facility] UNFRACTIONATED HEPARIN 0.59 IU/mL Normal 0.30-0.70 [facility] Comment on above: Result Comment: Khadijah roxaban and Apixaban will interfere with the anti Xa assay used tomonitor UFH and LMWH. Performed By: #### 2 1932, 75401 ####[facility] [facility].[address] UNFRACTIONATED HEPARIN 0.69 IU/mL Normal 0.30-0.70 [facility] Comment on above: Result Comment: [place] roxaban and Apixaban will interfere with the anti Xa assay used tomonitor UFH and LMWH. Performed By: #### 2 5532, 85412 ####[facility] [facility].[address] APTTon 01-09-2018 aPTT Coag time (Bld) 34.6 s Normal 25.0-35.0 [facility] Comment on above: Order Comment: No: D [...] FOR THIS PURPOSE. Performed By: #### 2 7623, 47640 ####[facility] [facility].[address] BASIC METABOLIC PANELon 12-29 Calcium mass conc 9.4 mg/dL Normal 8.6-10.3 [facility] Comment on above: Order Comment: No: D o not add to previous draw Performed By: #### 2 5032, 41373 ####[facility] [facility] [place] [address], [facility] Chloride molar conc 107 mmol/L Normal 98-107 [facility] Comment on above: Order Comment: No: D o not add to previous draw Performed By: #### 2 9732, 68784 ####[facility] [facility] [place] [address], [facility] CO2 molar conc 24 mmol/L Normal 21-31 [facility] Comment on above: Order Comment: No: D o not add to previous draw Performed By: #### 2 6932, 79055 ####[facility] [place] [address], [facility] Creatinine mass conc 0.89 mg/dL Normal 0.70-1.30 [facility] Comment on above: Order Comment: No: D o not add to previous draw Performed By: #### 2 0232, 42468 ####[facility] [facility] [place] [address], [facility] GFR/1.73 sq M predicted among blacks MDRD vol rate/area (S/P/Bld) mL/min/{1.73_m2} Normal >60 [facility] Comment on above: Order Comment: No: D o not add to previous draw Performed By: #### 2 32, 57277 ####[facility] [facility] [place] [address], [facility] GFR/1.73 sq M predicted among non-blacks MDRD vol rate/area (S/P/Bld) mL/min/{1.73_m2} Normal >60 [facility] Comment on above: Order Comment: No: D o not add to previous draw Performed By: #### 2 4622, 44872 ####[facility] [facility] [place] [address], [facility] Glucose mass conc 86 mg/dL Normal 70-100 [facility] Comment on above: Order Comment: No: D o not add to previous draw Performed By: #### 2 8932, 13339 ####[facility] [facility] [place] [address], [facility] Potassium molar conc 4.2 mmol/L Normal 3.5-5.1 [facility] Comment on above: Order Comment: No: D o not add to previous draw Performed By: #### 2 5532, 05733 ####[facility] [facility].[address] Sodium molar conc 136 mmol/L Normal 136-145 [facility] Comment on above: Order Comment: No: D o not add to previous draw Performed By: #### 2 5532, 82445 ####[facility] [facility].[address] Urea nitrogen mass conc 11 mg/dL Normal 7-25 [facility] Comment on above: Order Comment: No: D o not add to previous draw Performed By: #### 2 5532, 50914 ####[facility] [facility].[address] CBC W/DIFFon 01-09-2018 ABS BASOPHILS 0.1 10*3/uL Normal 0.0-0.2 [facility] Comment on above: Performed By: #### 2 6432, 65646 ####[facility] [facility].[address] ABS IMM GRANS 0.0 10*3/uL Normal 0.0-0.2 [facility] Comment on above: Performed By: #### 2 8232, 12622 ####[facility] [facility].[address] ABS NEUTROPHILS 7.2 10*3/uL Normal 1.6-7.6 [facility] Comment on above: Performed By: #### 2 8832, 88786 ####[facility] [facility].[address] Basophils Auto #/vol (Bld) 0.7 % Normal 0.0-1.0 [facility] Comment on above: Performed By: #### 2 3332, 57658 ####[facility] [facility].[address] Eosinophils Auto #/vol (Bld) 0.2 10*3/uL Normal 0.0-0.5 [facility] Comment on above: Performed By: #### 2 5532, 03671 ####[facility] [place] [address], [facility] Eosinophils/100 WBC Auto (Bld) 1.7 % Normal 0.0-6.0 [facility] Comment on above: Performed By: #### 2 5532, 37833 ####[facility] Erythrocyte distribution width Auto Ratio (RBC) 12.5 % Normal 11.5-15.0 [facility] Comment on above: Performed By: #### 2 5532, 09888 ####[facility] Hematocrit Auto Volume Fraction (Bld) 48.5 % Normal 39.0-50.0 [facility] Comment on above: Performed By: #### 2 5532, 57278 ####[facility] [facility] Hemoglobin mass conc (Bld) 17.0 g/dL Normal 13.0-17.0 [facility] Comment on above: Performed By: #### 2 5532, 99082 ####[facility] [facility] IMMATURE GRANS 0.4 % Normal 0.0-1.0 [facility] Comment on above: Performed By: #### 2 5932, 31948 ####[facility] Lymphocytes Auto #/vol (Bld) 1.9 10*3/uL Normal 1.2-4.0 [facility] Comment on above: Performed By: #### 2 5532, 97512 ####[facility] [place] [address], [facility] Lymphocytes/100 WBC Auto (Bld) 18.9 % Low 20.0-45.0 [facility] Comment on above: Performed By: #### 2 5532, 80012 ####[facility] [facility].[address] MCH Auto Entitic mass (RBC) 30.9 pg Normal 27.0-33.0 [facility] Comment on above: Performed By: #### 2 5532, 40883 ####[facility] [facility] MCHC Auto mass conc (RBC) 35.1 g/dL High 32.0-35.0 [facility] Comment on above: Performed By: #### 2 5532, 98801 ####[address] MCV Auto Entitic volume (RBC) 88.2 fL Normal 82.0-98.0 [facility] Comment on above: Performed By: #### 2 5532, 68144 ####[address] Monocytes Auto #/vol (Bld) 0.8 10*3/uL Normal 0.1-1.0 [facility] Comment on above: Performed By: #### 2 5532, 35559 ####[facility] [facility].[address] MONOS 7.6 % Normal 5.0-12.0 [facility] Comment on above: Performed By: #### 2 5532, 08517 ####[place] [address] [facility].[address] Neutrophils/100 WBC Auto (Bld) 70.7 % Normal 40.0-72.0 [facility] Comment on above: Performed By: #### 2 5532, 70442 ####[facility] [place] [address], [place] [address], [place] Nucleated RBC/100 WBC Ratio (Bld) 0 % Normal 0-0 [facility] Comment on above: Performed By: #### 2 5532, 08344 ####[facility] [facility].[address] PLAT CNT 234 10*3/uL Normal 150-400 [facility] Comment on above: Performed By: #### 2 5532, 89834 ####[facility] RBC Auto #/vol (Bld) 5.50 10*6/uL Normal 4.20-5.70 [facility] Comment on above: Performed By: #### 2 5532, 63693 ####[facility] WBC Auto #/vol (Bld) 10.12 10*3/uL Normal 4.00-10.60 [facility] Comment on above: Performed By: #### 2 5532, 26247 ####[place] [address] History and Physicalon 01-09 History and Physical [id number] Admitted: 01/09/2018 Date of : 1975 Attending Physician: Kris Campo MD Room #: 3AB [id number] Discharge Date: HISTORY AND PHYSICALCHIEF COMPLAINT: Palpitation.HISTORY OF PRESENT ILLNESS: This patient is a 42-year-old male with onlypast medical history of paroxysmal atrial fibrillation, who presented [facility] complaining of feeling palpitations started [...] pain, dizziness, headache,nausea, and vomiting. In the Zeke, the patient was found to haveatrial fibrillation [...] No rashes.ASSESSMENT:1. Paroxysmal atrial fibrillation with RVR. [id number] score is 0.2. Suspected obstructive sleep apnea.PLAN: We will do electrolytes, TSH, and troponin. The patient was startedon oral Cardizem. The patient is on aspirin, we will resume. Echo isordered. Plan is ALEXANDRO with cardioversion later today. The patient wasrecommended to have a sleep study outpatient.Electronically Signed by:Kris Campo MD 01/10/2018 08:03 A __CK Fernandesate Dict: 01/09/2018/01:04 P/CK Fernandesate Trans: 01/09/2018 01:59 P/[id number]:[id number] Normal [facility] LIVER BATTERYon 01-09-2018 Albumin mass conc 3.9 g/dL Normal 3.5-5.7 [facility] Comment on above: Order Comment: No: D o not add to previous draw Performed By: #### 2 5532, 47865 ####[facility] [place] [address], [place] ALKALINE PHOSPH 58 IU/L Normal 34-104 [facility] Comment on above: Order Comment: No: D o not add to previous draw Performed By: #### 2 5532, 62753 ####[facility] [place] [address], [place] ALT enzyme act/vol 12 U/L Normal 7-52 [facility] Comment on above: Order Comment: No: D o not add to previous draw Performed By: #### 2 5532, 88905 ####[facility] [place] [address], [place] AST enzyme act/vol 13 U/L Normal 13-39 [facility] Comment on above: Order Comment: No: D o not add to previous draw Performed By: #### 2 8732, 26543 ####[facility] [place] [address], [place] Bilirubin mass conc 0.9 mg/dL Normal 0.3-1.0 [facility] Comment on above: Order Comment: No: D o not add to previous draw Performed By: #### 2 3132, 53265 ####[facility] [place] [address], [place] Bilirubin.direct mass conc 0.1 mg/dL Normal 0.0-0.2 [facility] Comment on above: Order Comment: No: D o not add to previous draw Performed By: #### 2 2832, 93162 ####[facility] [place] [address], [place] Protein mass conc 6.8 g/dL Normal 6.0-8.3 [facility] Comment on above: Order Comment: No: D o not add to previous draw Performed By: #### 2 5532, 32105 ####[facility] [facility].[address] MAGNESIUM BLOODon 01-09-2018 Magnesium mass conc 2.0 mg/dL Normal 1.9-2.7 [facility] Comment on above: Order Comment: No: D o not add to previous draw Performed By: #### 2 5532, 01558 ####[facility] [facility].[address] PHOSPHORUS BLOODon 8 Phosphate mass conc 2.7 mg/dL Normal 2.5-5.0 [facility] Comment on above: Order Comment: No: D o not add to previous draw Performed By: #### 2 5532, 80754 ####[facility] PROTHROMBIN TIMEon 8 INR Coag RelTime (PPP) 1.04 {INR} Normal 0.91-1.16 [facility] Comment on above: Order Comment: No: [...] OF ACTION, CLINICALEFFECTIVENESS, AND OPTIMAL THERAPEUTIC RANGE. [id number]. Performed By: #### 2 2032, 06888 ####[facility] [facility].[address] Prothrombin time (PT) Coag time (PPP) 13.6 s Normal 12.3-14.8 [facility] Comment on above: Order Comment: No: D o not add to previous draw Result Comment: ALL RESULTS MUST BE INTERPRETED WITH RESPECT TO BLOOD DRAWING ARTIFACTOR DILUTION ERROR OF ANTICOAGULANT AT THE TIME OF SAMPLING. Performed By: #### 2 6732, 92336 ####[facility] [facility].[address] TROPONIN-Ion 01-09-2018 Troponin I.cardiac mass conc 0.00 ng/mL Normal 0.00-0.04 [facility] Comment on above: Order Comment: No: D o not add to previous draw Result Comment: REFE RENCE RANGES: 0.00 - 0.14 ng/ml NEGATIVE 0.15 - 0.25 ng/ml INDETERMINATE > 0.25 ng/ml INDICATIVE OF AN M.I. Performed By: #### 2 9532, 89345 ####[facility] [facility].[address] TSH3on 01-09-2018 TSH 3RD GENERATION 1.44 uIU/mL Normal 0.34-5.60 [facility] Comment on above: Order Comment: No: D o not add to previous draw Performed By: #### 2 2332, 31571 ####[facility] [facility].[address] UFH HEPARIN ASSAYon 01-10-20 18 UNFRACTIONATED HEPARIN 0.28 IU/mL Low 0.30-0.70 [facility] Comment on above: Result Comment: Khadijah roxaban and Apixaban will interfere with the anti Xa assay used tomonitor UFH and LMWH. Performed By: #### 2 6832, 45548 ####[facility] Discharge Summaryon 05-24-19 18 Discharge Summary MR#: [id number] [facility] Pt. Name: Hebert Martínez Admitted: 05/22/2017 Discharged: 05/23/2017 Date of : 1975 Physician: Liyah Andrade MD DISCHARGE SUMMARYDISCHARGE PHYSICIAN: Dr Michelet SeoERVICE: CCU.HOSPITAL COURSE: The patient is a 42-year-old male who [facility] for SVT with amild elevation of troponin at the [facility] of about 0.128 in thefacility. The patient presented to [facility] after noticing someincreasing heart rate related to discomfort in the middle of the chest andsome diaphoresis without any shortness of breath.PAST MEDICAL HISTORY: GERD.ALLERGIES: Penicillin.The patient was transferred to [facility] forfurther evaluation and management. Prior to transfer from [facility], the patient got one dose of [...] COURSE: The patient was subsequently transferred to [facility]. At [facility], the patientwas noted to have some sinus tachycardia with some PACs that self resolved.The patient has been denying any further chest discomfort since presentingto [facility]. Serial troponin were followed withhighest number at [facility] being 0.07 that has since trended down [...] daily . Anechocardiogram that was done at [facility] yesterday showed anejection fraction greater than 55% without any other abnormalities noted atthat time. His chest x-ray at [facility] was within normal limits.The patient continued to [...] Dict: 05/23/2017/01:44 P/Darrel Myers Trans: 05/24/2017 07:36 A/[id number]: Alexander Powell M.D. [address] [place] [address] Normal [facility] APTTon 05-23-2017 aPTT Coag time (Bld) 37.5 s High 25.0-35.0 [facility] Comment on above: Order Comment: No: [...] THIS PURPOSE. Performed By: #### 5 6101, 69915 ####[facility] [facility].[address] BASIC METABOLIC PANELon 05-01 Calcium mass conc 9.1 mg/dL Normal 8.6-10.3 [facility] Comment on above: Order Comment: Yes: Add to Previous draw if able Performed By: #### 0 007, 11182 ####[place] [address] [facility] [place] [address], [facility] Chloride molar conc 110 mmol/L High 98-107 [facility] Comment on above: Order Comment: Yes: Add to Previous draw if able Performed By: #### 0 70, [id number] ####[facility] [facility] [address], [facility] CO2 molar conc 24 mmol/L Normal 21-31 [facility] Comment on above: Order Comment: Yes: Add to Previous draw if able Performed By: #### 0 007, 80043 ####[place] [address] [facility] [address], [facility] Creatinine mass conc 0.74 mg/dL Normal 0.70-1.30 [facility] Comment on above: Order Comment: Yes: Add to Previous draw if able Performed By: #### 0 007, 00669 ####[place] [address] [facility].[address] GFR/1.73 sq M predicted among blacks MDRD vol rate/area (S/P/Bld) mL/min/{1.73_m2} Normal >60 [facility] Comment on above: Order Comment: Yes: Add to Previous draw if able Performed By: #### 0 007, 65046 ####[facility] [place] [address], [facility] GFR/1.73 sq M predicted among non-blacks MDRD vol rate/area (S/P/Bld) mL/min/{1.73_m2} Normal >60 [facility] Comment on above: Order Comment: Yes: Add to Previous draw if able Performed By: #### 0 0071, 30419 ####[facility] [place] [address], [facility] Glucose mass conc 85 mg/dL Normal 70-100 [facility] Comment on above: Order Comment: Yes: Add to Previous draw if able Performed By: #### 0 007, 54730 ####[place] [address] [place] [address], [facility] Potassium molar conc 3.9 mmol/L Normal 3.5-5.1 [facility] Comment on above: Order Comment: Yes: Add to Previous draw if able Performed By: #### 0 70, 09962 ####[facility] [place] [address], [facility] Sodium molar conc 138 mmol/L Normal 136-145 [facility] Comment on above: Order Comment: Yes: Add to Previous draw if able Performed By: #### 0 70, 55482 ####[facility] [facility] [address], [facility] Urea nitrogen mass conc 13 mg/dL Normal 7-25 [facility] Comment on above: Order Comment: Yes: Add to Previous draw if able Performed By: #### 0 70, 01310 ####[facility] [place] [address], [facility] CBC COMPLETE BLOOD COUNTon 0 - Erythrocyte distribution width Auto Ratio (RBC) 13.6 % Normal 11.5-16.9 [facility] Comment on above: Order Comment: No: D o not add to previous draw Performed By: #### 5 0608 ####[facility] [facility] Hematocrit Auto Volume Fraction (Bld) 45.6 % Normal 39.0-55.0 [facility] Comment on above: Order Comment: No: D o not add to previous draw Performed By: #### 5 0608 ####[facility] [facility] Hemoglobin mass conc (Bld) 15.7 g/dL Normal 13.9-16.3 [facility] Comment on above: Order Comment: No: D o not add to previous draw Performed By: #### 5 0608 ####[facility] [facility].[address] MCH Auto Entitic mass (RBC) 31.0 pg Normal 24.0-32.0 [facility] Comment on above: Order Comment: No: D o not add to previous draw Performed By: #### 5 0608 ####[facility] [facility].[address] MCHC Auto mass conc (RBC) 34.4 g/dL Normal 32.0-36.0 [facility] Comment on above: Order Comment: No: D o not add to previous draw Performed By: #### 5 0608 ####[facility] [facility].[address] MCV Auto Entitic volume (RBC) 90.1 fL Normal 80.0-100.0 [facility] Comment on above: Order Comment: No: D o not add to previous draw Performed By: #### 5 0608 ####[facility] [facility] [place] [address], [facility] PLAT CNT 255 Thou/mm3 Normal 100-400 [facility] Comment on above: Order Comment: No: D o not add to previous draw Performed By: #### 5 0608 ####[facility] RBC Auto #/vol (Bld) 5.06 mill/mm3 Normal 4.30-5.90 [facility] Comment on above: Order Comment: No: D o not add to previous draw Performed By: #### 5 0608 ####[place] [address] [facility].[address] WBC Auto #/vol (Bld) 8.1 Thou/mm3 Normal 4.0-10.0 [facility] Comment on above: Order Comment: No: D o not add to previous draw Performed By: #### 5 0608 ####[address] CPK-MB PROFILEon 05-23-2017 CK enzyme act/vol 37 U/L Normal 30-223 [facility] Comment on above: Performed By: #### 2 9132, 74301 ####[address] CK.MB mass conc 4.9 ng/mL Critically high 0.0-1.9 [facility] Comment on above: Performed By: #### 2 3332, 89839 ####[place] [address] [facility].[address] CK.MB mass conc 1.8 ng/mL Normal 0.0-5.0 [facility] Comment on above: Result Comment: IF T OTAL CK <200 U/L AND: 1. CKMB IS 5-10 NG/ML----BORDERLINE 2. CKMB IS >10 NG/ML----INDIC[place]IVE OF [place] OR IF TOTAL CK >200 U/L AND CKMB INDEX >1.9----INDIC[place] Performed By: #### 2 7732, 95522 ####[address] CK enzyme act/vol 43 U/L Normal 30-223 [facility] Comment on above: Order Comment: No: D o not add to previous draw Performed By: #### 2 5532, 56768 ####[facility] CK.MB mass conc 2.3 ng/mL Normal 0.0-5.0 [facility] Comment on above: Order Comment: No: D o not add to previous draw Result Comment: IF T OTAL CK <200 U/L AND: 1. CKMB IS 5-10 NG/ML----BORDERLINE 2. CKMB IS >10 NG/ML----INDIC[place] OR IF TOTAL CK >200 U/L AND CKMB INDEX >1.9----[place]IC[place] Performed By: #### 2 5532, 58621 ####[facility] CK.MB mass conc 5.3 ng/mL Critically high 0.0-1.9 [facility] Comment on above: Order Comment: No: D o not add to previous draw Performed By: #### 2 5532, 07558 ####[facility] History and Physicalon 05-23 History and Physical [id number] Admitted: 05/22/2017 Date of : 1975 Attending Physician: Heather Burnham MD Room #: [id number] Discharge Date: HISTORY AND PHYSICALCHIEF COMPLAINT: Chest pain and palpitation.HISTORY OF PRESENT ILLNESS: The patient is a 42-year-old male with nosignificant past cardiac history, who was transferred from [facility] due to chest pain, elevated troponin [...] [facility]. [facility] He denies any family history of cardiac [...] Signed by:Heather Burnham MD 05/23/2017 07:38 P __CK Solorioate Dict: 05/23/2017/12:26 A/Heather BurnhamDomenic Trans: 05/23/2017 01:06 A/franklinoDN_JN:[id number] Normal [facility] PROTHROMBIN TIMEon 8 INR Coag RelTime (PPP) 1.03 {INR} Normal 0.91-1.16 [facility] Comment on above: Order Comment: No: D [...] OF ACTION, CLINICALEFFECTIVENESS, AND OPTIMAL THERAPEUTIC RANGE. [id number]. Performed By: #### 5 6101, 65381 ####[facility] [facility].[address] Prothrombin time (PT) Coag time (PPP) 13.5 s Normal 12.3-14.8 [facility] Comment on above: Order Comment: No: D o not add to previous draw Result Comment: ALL RESULTS MUST BE INTERPRETED WITH RESPECT TO BLOOD DRAWING ARTIFACTOR DILUTION ERROR OF ANTICOAGULANT AT THE TIME OF SAMPLING. Performed By: #### 5 6101, 28125 ####[facility] [facility].[address] TROPONIN-Ion 01-24-2018 Troponin I.cardiac mass conc 0.04 ng/mL Normal 0.00-0.04 [facility] Comment on above: Order Comment: No: D o not add to previous draw Result Comment: REFE RENCE RANGES: 0.00 - 0.04 ng/ml NORMAL 0.05 - 0.50 ng/ml INDETERMINATE > 0.50 ng/ml CONSISTENT WITH AN M.I. Performed By: #### 2 5532, 75668 ####[facility] Troponin I.cardiac mass conc 0.04 ng/mL Normal 0.00-0.04 [facility] Comment on above: Order Comment: No: D o not add to previous draw Result Comment: REFE RENCE RANGES: 0.00 - 0.04 ng/ml NORMAL 0.05 - 0.50 ng/ml INDETERMINATE > 0.50 ng/ml CONSISTENT WITH AN M.I. Performed By: #### 2 9632, 83045 ####[facility] Troponin I.cardiac mass conc 0.07 ng/mL High 0.00-0.04 [facility] Comment on above: Order Comment: No: D o not add to previous draw Result Comment: REFE RENCE RANGES: 0.00 - 0.04 ng/ml NORMAL 0.05 - 0.50 ng/ml INDETERMINATE > 0.50 ng/ml CONSISTENT WITH AN M.I. Performed By: #### 2 3732, 42393 ####[facility] TSH WITH REFLEXon 05-23-2017 Thyrotropin Qn 1.67 MICRO-IU/ML Normal 0.34-5.60 [facility] Comment on above: Performed By: #### 0 0071, 05847 ####[facility] UFH HEPARIN ASSAYon 05-23-19 18 UNFRACTIONATED HEPARIN <0.10 Critically low 0.30-0.70 [facility] Comment on above: Result Comment: [place] roxaban and Apixaban will interfere with the anti Xa assay used tomonitor UFH and LMWH.RESULTS CHECKED AND CALLED. ACCURATELY READ BACK BY RASTA LEIJA RN AT 09:37 Performed By: #### 3 0477 ####[place] [address] Vital Signs Date Time Vital Sign Value Performing Clinician Facility 02-07-2024 15:00-0400 Body mass index (BMI) [Ratio] 30.3 kg/m2 [facility] 02-07-2024 15:00-0400 Body temperature 98.4 [degF] [facility] 02-07-2024 11:32-0400 Body height 175.26 cm [facility] 02-07-2024 11:32-0400 Body weight 93.09 kg [facility] 02-07-2024 11:32-0400 Diastolic blood pressure 78 mm[Hg] [facility] 02-07-2024 11:32-0400 Heart rate 80 /min [facility] 02-07-2024 11:32-0400 Respiratory rate 16 /min [facility] 02-07-2024 11:32-0400 SaO2% (BldA) [Mass fraction] 98 % [facility] 02-07-2024 11:32-0400 Systolic blood pressure 104 mm[Hg] [facility] 06-07-2023 08:45-0500 Body height 175.26 cm Rui Linn Other [employer] Other 06-07-2023 08:45-0500 Body mass index (BMI) [Ratio] 29.83 kg/m2 Rui Linn Other [employer] Other 06-07-2023 08:45-0500 Body weight 91.63 kg Rui Linn Other [facility] Other 06-07-2023 08:45-0500 Diastolic blood pressure 71 mm[Hg] Rui Linn Other [facility] Other 06-07-2023 08:45-0500 Systolic blood pressure 108 mm[Hg] Rui Linn Other [facility] Other 05-24-2021 11:15-0500 Body height 175.26 cm Franco Olexa Other [employer] Other 05-24-2021 11:15-0500 Body mass index (BMI) [Ratio] 29.68 kg/m2 Franco Olexa Other [employer] Other 05-24-2021 11:15-0500 Body weight 91.17 kg Franco Olexa Other [facility] Other 04-14-2021 12:00-0500 Body height 175.26 cm Franco Olexa Other [employer] Other 04-14-2021 12:00-0500 Body mass index (BMI) [Ratio] 29.53 kg/m2 Franco Olexa Other [employer] Other 04-14-2021 12:00-0500 Body weight 90.72 kg Franco Olexa Other [employer] Other 03-01-2021 11:30-0400 Body height 175.26 cm Franco Olexa Other [employer] Other 03-01-2021 11:30-0400 Body mass index (BMI) [Ratio] 29.62 kg/m2 Franco Olexa Other [employer] Other 03-01-2021 11:30-0400 Body weight 90.99 kg Franco Olexa Other [employer] Other 01-31-2021 11:00-0400 Body height 175.26 cm Franco Pan Other [facility] Other 01-31-2021 11:00-0400 Body mass index (BMI) [Ratio] 29.53 kg/m2 Franco Dicksonxa Other [facility] Other 01-31-2021 11:00-0400 Body weight 90.72 kg Franco Dicksonxa Other [employer] Other Encounters Encounter Date Encounter Type Care Provider Facility Start: 06-24-2024 ambulatory [place] Start: 02-19-2024 End: 02-20-2024 ambulatory [place] Start: 02-07-2024 End: 02-07-2024 ambulatory [facility] Work Phone: Start: 02-07-2024 End: 02-07-2024 Patient encounter procedure [facility] Physician [facility] Work Phone: Start: 11-21-2023 End: 11-21-20[facility] Start: 09-26-2023 End: 09-26-2023 ambulatory [place] Start: 09-26-2023 End: 09-26-2023 ambulatory [place] Start: 09-11-2023 End: 09-11-2023 ambulatory [place] Start: 06-07-2023 End: 06-07-2023 ambulatory Rui Linn Other [employer] Other Start: 06-07-2023 Office outpatient ne w 30 minutes Rui Linn [facility] Start: 12-11-2022 End: 12-11-2022 ambulatory Rui Linn Other [employer] Other Start: 12-11-2022 Telephone encounter Rui Linn [facility] Start: 05-24-2021 End: 05-24-2021 ambulatory Franco Olexa Other [employer] Other Start: 05-24-2021 Postop follow up vis it related to original px Franco Olexa [facility] Start: 04-21-2021 End: 04-21-[address] RUI LINN Facility:[facility] Start: 04-19-2021 End: 04-19-[address] RUI LINN Facility:[facility] Start: 04-14-2021 End: 04-14-2021 ambulatory Franco Olexa Other [facility] Other Start: 04-14-2021 Postop follow up vis it related to original px Franco Olexa [facility] Start: 04-11-2021 End: 04-11-2021 ambulatory Franco Olexa Other [employer] Other Start: 04-11-2021 Telephone encounter Franco Olexa [facility] Start: 04-10-2021 End: 04-10-2021 ambulatory JAH ABEBEHIRA Facility:[facility] Start: 04-04-2021 End: 04-04-2021 ambulatory Franco Olexa Other [employer] Other Start: 04-04-2021 Telephone encounter Franco Olexa [facility] Start: 03-01-2021 End: 03-01-2021 ambulatory Franco Olexa Other [employer] Other Start: 03-01-2021 Office outpatient visit 25 minutes Franco Olexa [facility] Start: 02-08-2021 Office outpatient visit 25 minutes Franco Olexa [facility] Start: 01-31-2021 Office outpatient visit 25 minutes Franco Olexa [facility] Start: 08-30-2020 End: 08-30-2020 Patient encounter procedure Rui Linn Work Phone: -Pre-Surgical Testing Start: 08-18-2020 End: 08-18-2020 Patient encounter procedure Rui Linn Work Phone: -Pre-Surgical Testing Start: 06-21-2020 End: 06-21-2020 Patient encounter procedure Rui Linn Work Phone: -MRI [address] Start: 01-09-2018 End: 01-11-2018 Evaluation and management of inpatient CHACHO RASHID [facility] Start: 05-23-2017 End: 05-23-2017 Evaluation and management of inpatient LIYAH ANDRADE [facility] Procedures Date Procedure Procedure Detail Performing Clinician Start: 06-21-2020 XR pre/post mri xray Hemant Linn Work Phone: Start: 06-21-2020 MRI of left shoulder Hemant Linn Work Phone: Start: 11-28-2018 General examination of patient Rui Linn Other Start: 01-10-2018 Mandaeism of Cardi ac Rhythm, Single HONEY URI Start: 01-10-2018 ULTRASONOGRAPHY OF H EART WITH AORTA, TRANSESOPHAGEAL HONEY URI Plan of Treatment Date Care Activity Detail Author [facility] Immunizations Immunization Date Immunization Notes Care Provider Josee adames 01-17-2021 Kenalog -40 mg Franco Olexa Other [employer] Other 08-19-2020 COVID-19 mRNA, Comirnaty (Pfizer) [facility] 07-29-2020 COVID-19 mRNA, Comirnaty (Pfizer) [facility] 07-08-2020 Kenalog -40 mg Franco Olexa Other [employer] Other Payers Date Payer Category Payer Unknown [id number] [id number] [id number] 1975 Unknown [id number] 1975 Unknown [id number] [id number] 1959 Private Health Insurance [facility] [id number] Private Health Insurance [facility] [id number] Self-pay Self Pay [id number] Unknown [id number] Unknown [id number] Social History Date Type Detail Facility Start: 08-18-2020 End: 04-06-2021 Tobacco smoking status WIIS Ex-smoker (finding) [facility] Start: 1975 Sex Assigned At Male F [facility] Sex Assigned At Sex Assigned At Bir th [employer] Other Medical Equipment Procedure Code Equipment Code Equipment Origin al Text Equipment Identifier Dates Arthroscopy, shoulder Orthopaedic bone screw, bioabsorbable ([id number] [facility] Start: 09-01-2020 Goals Date Patient Goal Desired Activity /State Clinical Notes 01-31-2021 to 06-24-2024 Note Date & Type Note Facility 06-24-2024 Note [facility] Consult Note Reason for visit: Afib 06/24/24 Patient here because he restarted flecainide on his own. He feels like he's been going in and out of afib. He denies chest pain, SOB, and lightheadedness/syncope. C/o palpitations. He has [employer] mobile and one of them is suspicious for AF but bseline artifact present. He states this last for <2min and he had only 2 episodes. Pulse check: SR 02/19/24 Patient is s/p ablation on 09/26/2023. He feels markedly better in sinus rhythm. And would like to come off anticoagulation. He is also on flecainide and Toprol Pulse check: SR 09/11/23 Patient here for 1 year follow [...] is in normal rhythm today Prior HPI: Hebert Martínez is a 49 y.o. with paroxysmal atrial fibrillation which was initially diagnosed in 2017 and was subsequently seen by Dr. Powell. He was placed on flecainide 50 mg and had a recurrence in September 2017 and at that time was cardioverted at [facility]. He was continued on the same dose [...] on file Intimate Partner Violence: Unknown (06/21/2023) [facility] Safety & Environment Fear of Current or Ex-Partner: Not on file Emotionally Abused: Not on file Physically Abused: Not on file Sexually Abused: Not on file Physically or Sexually Abused: Not on file Depression: Not on file Housing Stability: Not on file Utilities: Not on file Health Literacy: Not on file Allergies: Allergies Allergen Reactions Penicillins Hives Weight: 90.7 (more content not included)... [facility] 02-19-2024 Note [facility] Note Reason for visit: Afib 02/19/24 Patient is s/p ablation on 09/26/2023. He feels markedly better in sinus rhythm. And would like to come off anticoagulation. He is also on flecainide and Toprol Pulse check: SR 09/11/23 Patient here for 1 year follow [...] is in normal rhythm today Prior HPI: Hebert Martínez is a 48 y.o. with paroxysmal atrial fibrillation which was initially diagnosed in 2017 and was subsequently seen by Dr. Powell. He was placed on flecainide 50 mg and had a recurrence in September 2017 and at that time was cardioverted at [facility]. He was continued on the same dose [...] on file Intimate Partner Violence: Unknown (06/21/2023) [place] Safety & Environment Fear of Current or Ex-Partner: Not on file Emotionally Abused: Not on file Physically Abused: Not on file Sexually Abused: Not on file Physically or Sexually Abused: Not on file Depression: Not on file Housing Stability: Not on file Utilities: Not on file Allergies: Allergies Allergen Reactions Penicillins Hives Weight: 92.5kg Visit Vitals BP 122/81 Pulse 70 Ht 1.727 m (5' 8 ) Wt 92.5 kg (204 lb) SpO2 99% BMI 31.02 kg/m??? Smoking Status Former BSA 2.11 m??? Meds: Current Outpatient Medications on File Prior to Visit Medication Sig Dispense Refill apixaban (Eliquis) 5 mg tablet Take 1 tablet (5 mg) by mouth in the morning and at bedtime. 60 tablet 11 metoprolol succinate XL (Toprol-X (more content not included)... [facility] 11-21-2023 Note Currently stable Continue toprol and flecanide [facility] 11-21-2023 Note [id number]= 0 -s/p recent afib ablation this past August- Currently remains on flecanide, and toprol with eliquis anticoagulation- will have pt f/U with Dr Earl in 3 months to determine if he needs to remain on eliquis and consider stopping flecanide. [facility] 11-21-2023 Note [facility] CARDIOLOGY PROGR ESS NOTE HPI: Hebert Martínez is a 48 y.o. male here for No chief complaint on file. HPI Patient here for follow up afib ablation 09/26/[address] Earl. Says he hasn't felt this good in a long time. Denies chest pain, SOB, palpitations, lightheadedness/syncope, and bleeding on Eliquis. He would love to come off Eliquis if allowable. Review of Systems All other systems reviewed and are negative Review of Systems Visit Vitals BP 102/68 (BP Location: Right arm, Patient Position: Sitting) Pulse 69 Ht 1.727 m (5' 8 ) Wt 92.1 kg (203 lb) SpO2 97% BMI 30.87 kg/m??? Smoking Status Former BSA 2.1 m??? Allergies Allergen Reactions Penicillins Hives Medications: Current Outpatient Medications on File Prior to Visit Medication Sig Dispense Refill apixaban (Eliquis) 5 [...] mouth in the morning. 90 tablet 3 omeprazole (PriLOSEC) [address] capsule Take 20 mg by mouth in the morning. tiZANidine (Zanaflex) 4 mg tablet if needed. famotidine (Pepcid) 20 mg tablet Take 1 tablet (20 mg) by mouth in the morning and at bedtime. 60 tablet 0 No current facility-administered medications on file prior to visit. Physical Exam: Constitutional: Appearance: Normal appearance. Without apparent distress HENT: Head: Normocephalic and atraumatic. Nose: Nose normal. Mouth/Throat: Mouth: Mucous membranes are moist. Eyes: Extraocular Movements: Extraocular movements intact. Conjunctiva/sclera: Conjunctivae normal. Neck: Vascular: No JVD. Cardiovascular: Rate and Rhythm: Normal rate and regular rhythm. Pulses: Dorsalis pedis pulses are 3 on the right side and 3on the left side. Posterior tibial pulses are 3 on the right side and 3 on the left side. Heart sounds: Normal heart sounds, S1 normal and S2 normal. Pulmonary: Effort: Pulmonary effort is normal. Breath sounds: Normal breath sounds. Abdominal: General: Bowel sounds are normal. Palpations: Abdomen is soft. Musculoskeletal: General: Normal range of motion. Cervical back: Normal range of motion. Right lower leg: No edema. Left lower leg: No edema. Skin: General: Skin is warm and dry. Capillary Refill: Capillary refill takes less than 2 seconds. Neurological: General: No focal deficit present. Mental Status: She is alert and oriented to person, place, and time. Psychiatric: Mood and Affect: Mood normal. Behavior: Behavior normal. Thought Content: Thought content normal. Judgment: Judgment normal. Labs: 09/19/23 BUN 15, CR 0.85 normal NA 138, K+ 4.2 CBC normal Last lab values have been reviewed CV Testing: EKG today 11/21/23 Normal sinus rhythm- normal ECG EKG 05/10/2021 shows sinus rhythm 04/10/2021 shows [...] triggered events during the time of monitoring Conclusion ATRIAL FIBRILLATION ABLATION PROCEDURE NOTE DATE OF PROCEDURE: 09/26/2023 PERFORMING PHYSICIAN: Dr. Rudi Earl MATERIAL CONTROL SUPERVISOR: MIKI CONSENT: Patient NAME OF THE PROCEDURE: [...] results using intravenous adenosine infusion. 8. Fluroscopy. LA baseline (mmHg) 1st and 2nd 20/5 HR 56bpm, 17/7 LA 600ms pacing (mmHg) 16/6 LA 450ms pacing (mmHg) 25/8 AHms 83, 83 (post abln) HVms 58, 54 9 (post abln) VERPms 600/280, VA condunction- AV Wenkebach ms 350ms AH jump ms NA AVNERP m (more content not included)... [facility] 11-21-2023 Note Patient here for fol low up afib ablation 09/26/[address] Earl. Says he hasn't felt this good in a long time. Denies chest pain, SOB, palpitations, lightheadedness/syncope, and bleeding on Eliquis. He would love to come off Eliquis if allowable. Review of Systems All other systems reviewed and are negative. [facility] 09-26-2023 Note Patient: Hebert Lozada ers Procedure Summary Date: 09/26/23 [facility] / [facility] (Cath) Anesthesia Start: 838 Anesthesia Stop: 1129 Procedure: Ablation a-fib paroxysmal Diagnosis: Paroxysmal atrial fibrillation (CMS/HCC) (Paroxysmal atrial fibrillation (CMS/HCC) [I48.0]) Providers: Rudi Earl MD Responsible Provider: Renny Andersen MD Anesthesia Type: general ASA Status: 2 Anesthesia Type: general Vitals Value Taken Time BP 130/82 09/26/23 1140 Temp 36.4 ???C (97.5 ???F) 09/26/23 [...] no known notable events for this encounter. [facility] 09-26-2023 Note Patient: Hebert Lozada ers Procedure Summary Date: 09/26/23 [facility] EP / [facility] (Cath) Anesthesia Start: 838 Anesthesia Stop: Procedure: Ablation a-fib paroxysmal Diagnosis: Paroxysmal atrial fibrillation (CMS/HCC) (Paroxysmal atrial fibrillation (CMS/HCC) [I48.0]) Providers: Rudi Earl MD Responsible Provider: Renny Andersen MD Anesthesia Type: general ASA Status: 2 Anesthesia Post Transport Note Transport to: PACU O2 Route: room air Patient Monitor: direct observation Transport: uneventful Patient condition is: stable [facility] 09-26-2023 Note ATRIAL FIBRILLATION ABLATION PROCEDURE NOTE DATE OF PROCEDURE: 09/26/2023 PERFORMING PHYSICIAN: Dr. Rudi Earl MATERIAL CONTROL SUPERVISOR: MIKI CONSENT: Patient NAME OF THE PROCEDURE: [...] pulmonary veins. Esophagus was mapped using the [employer] 3D mapping software and noted to lie [...] of sheath re (more content not included)... [facility] 09-26-2023 Note Arterial Line: Date/Time: 09/26/2023 8:10 [...] mL - 09/26/2023 8:10:00 AM Staffing Performed: resident/WELDING MACHINE OPERATOR PLASMA ARC/CAA Anesthesiologist: Renny Andersen MD Resident/WELDING MACHINE OPERATOR PLASMA ARC: Darnell Santillan MD Performed by: Darnell Santillan MD Authorized by: Renny Andersen MD [facility] 09-26-2023 Note Airway Date/Time: 09/26/2023 9:02 AM Urgency: elective General Information and Staff Patient location during procedure: OR Anesthesiologist: Renny Andersen MD Resident/WELDING MACHINE OPERATOR PLASMA ARC/CAA: Darnell Santillan MD Performed: resident/WELDING MACHINE OPERATOR PLASMA ARC/CAA Indications and Patient Condition Indications for airway [...] 1 Number of other approaches attempted: 0 [facility] 09-26-2023 Note Patient: Hebert garcia Procedure Information Date/Time: 09/26/23 0830 Procedure: Ablation a-fib paroxysmal [facility] (Cath) Providers: Rudi Earl MD [...] mg tablet if needed. 09/04/23 Historical Provider, [facility] 09-11-2023 Note [facility] Consult Note Reason [...] is in normal rhythm today Prior HPI: Hebert Martínez is a 48 y.o. with paroxysmal atrial fibrillation which was initially diagnosed in 2017 and was subsequently seen by Dr. Powell. He was placed on flecainide 50 mg and had a recurrence in September 2017 and at that time was cardioverted at [place]. He was continued on the same dose [...] capsule Take 20 (more content not included)... [facility] 06-07-2023 Evaluation note Encounter Date Diagnosis Assessment Notes May, Trapezius strain, left, sequela (ICD-10 - S46.812S) Discussed heat stretches. Handout with stretches given to patient. Muscle relaxer prior to bedtime. Could be sedating for use during the day. Patient expresses understanding. May, Erectile dysfunction, unspecified erectile dysfunction type (ICD-10 - N52.9) Patient mentions this problem at the end of his office visit. Requested prescription for ED. [employer] Other 12-16-2021 Evaluation note* Encounter Date Diagnosis [...] of left rotator cuff (ICD-10 - M67.912) [employer] Other 12-06-2021 Evaluation note* Encounter Date Diagnosis Assessment Notes Treatment Notes Treatment Clinical Notes Mar, Other specified postprocedural states (ICD-10 - Z98.890) [employer] Other 10-12-2021 Evaluation note* Encounter Date Diagnosis [...] of left rotator cuff (ICD-10 - M67.912) [employer] Other 10-04-2021 Evaluation note* Encounter Date Diagnosis [...] of left rotator cuff (ICD-10 - M67.912) [employer] Other Evaluation noteNo Assessments Information Available [facility] noteN[facility] [employer] Other Evaluation noteNo InformationN[employer] Other Evaluation [email or web address] Other Evaluation note* Diagnosis Onset Date Resolution Status Family history of prostate cancer acute Screening for prostate cancer acute [facility] Work Phone: [employer] general Narrative - Reported* Type Description Date Medical History heart disease Surgical History shoulder arthroscopy right RCR Surgical History arthroscopic knee surgery right Surgical History hernia- as a baby Surgical History Left shoulder arthro scopy [with subacromial decompression and Open subpectoral biceps tenodesis using Arthrex button fixation 09/01/20 [employer] Other [employer] general Narrative - ReportedNo[employer] Other history general Narrative - Reported* Type [...] adhesions and capsular release, BWC DOS 04/06/21 [employer] Other [facility] - [facility] [employer] Other History general Narrative - Reported* Type Description Date [...] 5 knee surgeries, Problem Status : Active, [facility] [employer] Other Summary Purpose Family History No Family History Records Found Relationship Condition Age at Onset Recorded Date/T alma Not Specified Chronic atrial fibrillation Unknown father Healthy adult Unknown Relationship Condition Age at Onset Recorded Date/T alma mother Chronic atrial fibrillation Unknown father Heart problem Unknown Advance Directives No Advanced Directives Records Found Advance Directive Response Recorded Date/ Time Advance [...] section and content) DATE CREATED AUTHOR 02/21/2018 [facility] DATE CREATED AUTHOR AUTHOR'S ORGANIZ ATION 11/19/2020 [facility] DATE CREATED AUTHOR AUTHOR'S ORGANIZ ATION 07/27/2021 [facility] DATE CREATED AUTHOR AUTHOR'S ORGANIZ ATION 10/01/2021 [facility] DATE CREATED AUTHOR AUTHOR'S ORGANIZ ATION 06/28/2024 [facility] REASON FOR VISIT (unrecogniz ed section and content) Recheck Left ShoulderMRI Res ults Left Shouldermedication questionRecheck Left Shoulderpost op scriptsrefillshoulder/neck pain Care Teams (unrecognized sec tion and content) Team Status: Active Member Role Status Dates Rui Linn MD Primary Care Provider Active Team Status: Inactive Member Role Status Dwayne Linn MD Primary Care Provide r, Attending [...] BE BASED ON THE PRIMARY CLINICAL RECORDS. [employer] provides no warranty or guarantee of the accuracy or completeness of information in this document.
== END 2024-10-26 10:08 | disposition home or self-care (01) ==
PROVIDERS: Emergency Provider Emergency Medicine; PCP Family Medicine
DX: M77.8 Other enthesopathies, not elsewhere classified (principal)
CPT/HCPCS: 73090; 99283